=== PATIENT | female | born 1995 | race Caucasian/White ===

== ENCOUNTER 2016-12-02 18:03 | Emergency (ER) | payer MEDICAID ==
[2016-12-02 19:32] LABS: APPEARANCE,URINE CLEAR; BILIRUBIN,URINE NEGATIVE (NEGATIVE); GLUCOSE, URINE NEGATIVE (NEGATIVE); KETONES,URINE NEGATIVE (NEGATIVE); LEUKOCYTE ESTERASE,URINE NEGATIVE (NEGATIVE); NITRITE,URINE NEGATIVE (NEGATIVE); PROTEIN,URINE NEGATIVE (NEGATIVE); URINE SPECIFIC GRAVITY 1.023; UROBILINOGEN,URINE NEGATIVE mg/dL (<2.0)
--- NOTE | 2016-12-02 20:02 | ER Document Report ---
HPI - HPI Patient complains to provider of: urinary frequency, low back pain Onset: Other - months Onset/Duration: Persistent Quality of pain: Achy Pain Level: 3 Context: Patient presents to the emergency department with complaints of bladder pressure urinary frequency and low back pain for months. Patient reports she was treated for UTI 4 months ago. She reports she never really felt better. Last couple weeks she's had some low bladder pressure and low back pain. Denies other symptoms such as fever vomiting diarrhea. Denies vaginal bleeding denies vaginal discharge. Reports uncomfortable feeling with void every now and then. Associated Symptoms: None Exacerbated by: Denies Relieved by: Denies Similar symptoms previously: Yes Recently seen / treated by doctor: No - REPRODUCTIVE Reproductive: DENIES: : - DERM Skin Color: Normal Past Medical History - General Information source: Patient Last Menstrual Period: 11/18/16 - Social History Smoking Status: Never Smoker Chew tobacco use (# tins/day): No Frequency of alcohol use: None Drug Abuse: None Occupation: homemaker Lives with: Family Family History: None Patient has suicidal ideation: No Patient has homicidal ideation: No - Medical History Medical History: Negative - Past Medical History Cardiac Medical History: Denies: Hx Coronary Artery Disease, Hx Heart Attack, Hx Hypertension Pulmonary Medical History: Denies: Hx Asthma, Hx Bronchitis, Hx COPD, Hx Pneumonia Neurological Medical History: Denies: Hx Cerebrovascular Accident, Hx Seizures Renal/ Medical History: Denies: Hx Peritoneal Dialysis Musculoskeltal Medical History: Denies Hx Arthritis Past Surgical History: Reports: Hx Cholecystectomy - Immunizations Immunizations up to date: Yes Hx Diphtheria, Pertussis, Tetanus Vaccination: Yes Vertical Provider Document - CONSTITUTIONAL Agree With Documented VS: Yes Exam Limitations: No Limitations General Appearance: WD/WN, No Apparent Distress - INFECTION CONTROL TRAVEL OUTSIDE OF THE [place] IN LAST 30 DAYS: No - HEENT HEENT: Atraumatic, Normocephalic - NECK Neck: Normal Inspection, Supple. negative: Lymphadenopathy-Left, Lymphadenopathy-Right - RESPIRATORY Respiratory: Breath Sounds Normal, No Respiratory Distress O2 Sat by Pulse Oximetry: 99 - CARDIOVASCULAR Cardiovascular: Regular Rate, Regular Rhythm - GI/ABDOMEN Gastrointestinal: Abdomen Soft, Abdomen Non-Tender - BACK Back: Normal Inspection - no obvious deformity, good distal movement and sensation, no weakness - MUSCULOSKELETAL/EXTREMETIES Musculoskeletal/Extremeties: MAEW, FROM - NEURO Level of Consciousness: Awake, Alert, Appropriate Motor/Sensory: No Motor Deficit - DERM Integumentary: Warm, Dry Adult Front & Back Diagram: 1 - low back achy 2 - bladder pressure Course - Re-evaluation Re-evalutation: 12/02/16 20:08 Patient was instructed on negative UA. Urine culture sent. Patient was also instructed to follow up with her primary care provider for recheck. She verbalized understanding. - Vital Signs Vital signs: Temp Pulse Resp BP Pulse Ox 98.6 F 84 17 147/95 H 99 12/02/16 18:12 12/02/16 18:12 12/02/16 18:12 12/02/16 18:12 12/02/16 18:12 - Laboratory Laboratory results interpreted by me: 12/02/16 18:35 Urine Blood SMALL H Discharge - Discharge Clinical Impression: Urinary frequency, Elevated blood pressure reading Condition: Stable Disposition: HOME, SELF-CARE Additional Instructions: *You have been evaluated for urinary frequency, elevated blood pressure reading *A urine culture is pending, you will contacted should you need antibiotics *Push fluids *Follow up with your primary care provider within one week *Return to ED for worsening condition, changes, needs Monitor your blood pressure. Your blood pressure was elevated today. This may be because you were anxious, in pain or because you need medication. It is important to follow up with your primary care provider for full evaluation. Referrals: MATIAS SOTO MD [Primary Care Provider] - Follow up in 1 week
[2016-12-02 20:59] VITALS: BP 141/92
== END 2016-12-02 20:57 | disposition home or self-care (01) ==
LOC: ER 18:03
DX: R35.0 Frequency of micturition (principal); R03.0 Elevated blood-pressure reading, without diagnosis of hypertension; M54.5 Low back pain
CPT/HCPCS: 81001; 81025; 87086; 99283

== ENCOUNTER 2017-07-29 17:27 | Emergency (ER) | payer MEDICAID ==
--- NOTE | 2017-07-29 17:48 | ER Document Report ---
ED General - General Chief Complaint: Chest Pain Stated Complaint: CHEST PAIN Time Seen by Provider: 07/29/17 17:47 Mode of Arrival: Ambulatory Information source: Patient Notes: 22-year-old female presents with complaints of 5 day duration of intermittent chest pain. Patient notes it is a sharp pressure-like pain on the left chest rating to her neck. Patient denies any rigors or chills admits to intermittent cough which makes her pain worse. She denies any shortness of breath denies any DVT or PE risk factors, patient denies any early family history of cardiac . TRAVEL OUTSIDE OF THE [place] IN LAST 30 DAYS: No - HPI Onset: Last week Onset/Duration: Intermittent Quality of pain: Achy, Sharp Severity: Mild Pain Level: 1 Associated symptoms: Chest pain Exacerbated by: Denies Relieved by: Denies Similar symptoms previously: No Recently seen / treated by doctor: No - Related Data Allergies/Adverse Reactions: amoxicillin [Amoxicillin] Allergy (Mild, Verified 07/29/17 17:30) Hives Penicillins Allergy (Mild, Verified 07/29/17 17:30) Hives Past Medical History - Social History Smoking Status: Never Smoker Cigarette use (# per day): No Chew tobacco use (# tins/day): No Smoking Education Provided: No Family History: None - Past Medical History Cardiac Medical History: Denies: Hx Coronary Artery Disease, Hx Heart Attack, Hx Hypertension Pulmonary Medical History: Denies: Hx Asthma, Hx Bronchitis, Hx COPD, Hx Pneumonia Neurological Medical History: Denies: Hx Cerebrovascular Accident, Hx Seizures Renal/ Medical History: Denies: Hx Peritoneal Dialysis Musculoskeltal Medical History: Denies Hx Arthritis Past Surgical History: Reports: Hx Cholecystectomy - Immunizations Immunizations up to date: Yes Hx Diphtheria, Pertussis, Tetanus Vaccination: Yes Review of Systems - Review of Systems Notes: REVIEW OF SYSTEMS: CONSTITUTIONAL : Denies fever, chills, or sweats. Denies recent illness. EENT: Denies eye, ear, throat, or mouth pain or symptoms. Denies nasal or sinus congestion or discharge. Denies throat, tongue, or mouth swelling or difficulty swallowing. CARDIOVASCULAR: Denies chest pain. Denies palpitations or racing or irregular heart beat. Denies ankle edema. RESPIRATORY: Denies cough, cold, or chest congestion. Denies shortness of breath, difficulty breathing, or wheezing. GASTROINTESTINAL: Denies abdominal pain or distention. Denies nausea, vomiting , or diarrhea. Denies blood in vomitus, stools, or per rectum. Denies black, tarry stools. Denies constipation. GENITOURINARY: Denies difficulty urinating, painful urination, burning, frequency, blood in urine, or discharge. FEMALE GENITOURINARY: Denies vaginal bleeding, heavy or abnormal periods, irregular periods. Denies vaginal discharge or odor. MUSCULOSKELETAL: Denies back or neck pain or stiffness. Denies joint pain or swelling. SKIN: Denies rash, lesions or sores. HEMATOLOGIC : Denies easy bruising or bleeding. LYMPHATIC: Denies swollen, enlarged glands. NEUROLOGICAL: Denies confusion or altered mental status. Denies passing out or loss of consciousness. Denies dizziness or lightheadedness. Denies headache. Denies weakness or paralysis or loss of use of either side. Denies problems with gait or speech. Denies sensory loss, numbness, or tingling. Denies seizures. PSYCHIATRIC: Denies anxiety or stress. Denies depression, suicidal ideation, or homicidal ideation. ALL OTHER SYSTEMS REVIEWED AND NEGATIVE. PHYSICAL EXAMINATION: GENERAL: Well-appearing, well-nourished and in no acute distress. HEAD: Atraumatic, normocephalic. EYES: Pupils equal round and reactive to light, extraocular movements intact, conjunctiva are normal. ENT: Nares patent, oropharynx clear without exudates. Moist mucous membranes. NECK: Normal range of motion, supple without lymphadenopathy LUNGS: Breath sounds clear to auscultation bilaterally and equal. No wheezes rales or rhonchi. HEART: Regular rate and rhythm without murmurs chest wall pain reproducible on palpation ABDOMEN: Soft, nontender, nondistended abdomen. No guarding, no rebound. No masses appreciated. Female : deferred Musculoskeletal: Normal range of motion, no pitting or edema. No cyanosis. NEUROLOGICAL: Cranial nerves grossly intact. Normal speech, normal gait. Normal sensory, motor exams PSYCH: Normal mood, normal affect. SKIN: Warm, Dry, normal turgor, no rashes or lesions noted. Dictation was performed using [employer] voice recognition software Physical Exam - Vital signs Vitals: Temp Pulse Resp BP Pulse Ox 97.8 F 88 14 140/81 H 99 07/29/17 17:31 07/29/17 17:31 07/29/17 17:31 07/29/17 17:31 07/29/17 17:31 Course - Re-evaluation Re-evalutation: 07/29/17 17:53 X-ray cardiac workup pending but have extremely low suspicion for any cardiac event 07/29/17 19:00 Patient's lab work cardiac enzymes are negative have even less suspicion of any cardiac event, I will have her follow-up with her primary care physician that she is otherwise stable for discharge After performing a Medical Screening Examination, I estimate there is LOW risk for RUPTURED ESOPHAGUS, PNEUMOTHORAX, PULMONARY EMBOLISM, ACUTE CORONARY SYNDROME, OR THORACIC AORTIC DISSECTION, thus I consider the discharge disposition reasonable. I have reevaluated this patient multiple times and no significant life threatening changes are noted. The patient and I have discussed the diagnosis and risks, and we agree with discharging home with close follow-up. We also discussed returning to the Emergency Department immediately if new or worsening symptoms occur. We have discussed the symptoms which are most concerning (e.g., bloody sputum, worsening pain or shortness of breath) that necessitate immediate return. - Vital Signs Vital signs: Temp Pulse Resp BP Pulse Ox 97.8 F 88 14 140/81 H 99 07/29/17 17:31 07/29/17 17:31 07/29/17 17:31 07/29/17 17:31 07/29/17 17:31 - Laboratory Result Diagrams: 07/29/17 18:00 07/29/17 18:00 - Diagnostic Test Radiology reviewed: Image reviewed, Reports reviewed - EKG Interpretation by Me EKG shows normal: Sinus rhythm, Intervals, QRS Complexes Discharge - Discharge Clinical Impression: Chest pain of unknown etiology Condition: Stable Disposition: HOME, SELF-CARE Instructions: Chest Pain of Unclear Cause ([facility]) Additional Instructions: Follow up with your physician tomorrow for further care or return to the ED IMMEDIATELY if symptoms worsen or new concerns occur. If you cannot afford to follow up with your primary care physician a list of low cost clinics have been provided at the end of your discharge papers as well.
[2017-07-29 18:16] LABS: ABSOLUTE BASOPHILS # (AUTO) 0.1 10^3/uL (0.0-0.2); ABSOLUTE LYMPHOCYTES (AUTO) 2.1 10^3/uL (0.5-4.7); ABSOLUTE MONOCYTES (AUTO) 0.4 10^3/uL (0.1-1.4); ABSOLUTE NEUT (AUTO) 3.1 10^3/uL (1.7-8.2); EOSINOPHILS % (AUTO) 0.5 % (0-6); HEMATOCRIT 39.1 % (36.0-47.0); HGB HCT DIFFERENCE -0.1; LYMPHOCYTES % (AUTO) 37.4 % (13-45); MEAN CORPUSCULAR HEMOGLOBIN 27.9 pg (27.0-33.4); MEAN CORPUSCULAR HGB CONC 33.3 g/dL (32.0-36.0); MEAN CORPUSCULAR VOLUME 84 fl (80-97); MONOCYTES % (AUTO) 6.6 % (3-13); RED BLOOD COUNT 4.66 10^6/uL (3.72-5.28); RED CELL DISTRIBUTION WIDTH 13.1 % (11.5-14.0); SEGMENTED NEUTROPHILS % (AUTO) 54.5 % (42-78); WHITE BLOOD COUNT 5.7 10^3/uL (4.0-10.5)
--- NOTE | 2017-07-29 18:42 | RADIOLOGY REPORT (SQ) ---
EXAM DESCRIPTION: CHEST PA/LAT COMPLETED DATE/TIME: 07/29/2017 6:18 pm REASON FOR STUDY: chest pain COMPARISON: None. EXAM PARAMETERS: NUMBER OF VIEWS: two views TECHNIQUE: Digital Frontal and Lateral radiographic views of the chest acquired. RADIATION DOSE: NA LIMITATIONS: none FINDINGS: LUNGS AND PLEURA: No opacities, masses or pneumothorax. No pleural effusion. MEDIASTINUM AND HILAR STRUCTURES: No masses or contour abnormalities. HEART AND VASCULAR STRUCTURES: Heart normal size. No evidence for failure. BONES: No acute findings. HARDWARE: None in the chest. OTHER: No other significant finding. IMPRESSION: NO SIGNIFICANT RADIOGRAPHIC FINDING IN THE CHEST. TECHNICAL DOCUMENTATION: JOB ID: [id number] [employer]- All Rights Reserved
[2017-07-29 18:46] LABS: ALANINE AMINOTRANSFERASE 27 U/L (9-52); ALBUMIN 4.5 g/dL (3.5-5.0); ALKALINE PHOSPHATASE 67 U/L (38-126); ANION GAP 13 (5-19); ASPARTATE AMINO TRANSFERASE 16 U/L (14-36); BILIRUBIN,DIRECT 0.2 mg/dL (0.0-0.4); BILIRUBIN,TOTAL 0.5 mg/dL (0.2-1.3); BLOOD UREA NITROGEN 9 mg/dL (7-20); CALCIUM 9.9 mg/dL (8.4-10.2); CARBON DIOXIDE 24 mmol/L (22-30); CHLORIDE 105 mmol/L (98-107); CREATINE KINASE 40 U/L (30-135); CREATININE RESULT 0.61 mg/dL (0.52-1.25); GLUCOSE 90 mg/dL (75-110); POTASSIUM 4.2 mmol/L (3.6-5.0); SODIUM 141.8 mmol/L (137-145); TOTAL PROTEIN 7.5 g/dL (6.3-8.2)
[2017-07-29 18:58] LABS: CREATINE KINASE MB < 0.22 ng/mL (<4.55); TROPONIN I < 0.012 ng/mL
[2017-07-29 19:04] VITALS: BP 136/86
--- NOTE | 2017-07-29 20:49 | EKG REPORT ---
SEVERITY:- BORDERLINE ECG - SINUS RHYTHM NONSPECIFIC INFERIOR ST-T CHANGES : Confirmed by: Chucky Adams MD 29-Jul-2017 20:48:41
== END 2017-07-29 19:04 | disposition home or self-care (01) ==
LOC: ER 17:27
DX: R07.9 Chest pain, unspecified (principal)
CPT/HCPCS: 36415; 71020; 80053; 82550; 82553; 84484; 85025; 93005; 93010; 99285

== ENCOUNTER 2017-08-11 01:56 | Emergency (ER) | payer MEDICAID ==
[2017-08-11] MEDS ORDERED: SUCRALFATE 1 GM TABLET PO ONE (03:01)
[2017-08-11] MEDS ORDERED: ONDANSETRON 4 MG TAB.RAPDIS PO ONE (03:01)
[2017-08-11] MEDS ORDERED: FAMOTIDINE 20 MG TABLET PO ONE (03:01)
--- NOTE | 2017-08-11 03:03 | ER Document Report ---
ED GI/ - General Chief Complaint: Abdominal Pain Stated Complaint: STOMACH PAINS Time Seen by Provider: 08/11/17 02:52 Notes: Patient is a 22-year-old female that comes emergency department for chief complaint of left upper quadrant pain. She states she has had this intermittently for a while but tonight it was particularly uncomfortable, she tried eating and felt worse, she felt nauseated. She denies fever chills, vomiting, she had a bowel movement earlier which was unremarkable. She states she has been taking a lot of ibuprofen because she was seen here and diagnosed with chest wall pain. She states her chest feels fine now but now her left upper abdomen is hurting. Past medical history of anxiety, cholecystectomy. LMP in June, states she normally has irregular cycles. TRAVEL OUTSIDE OF THE [place] IN LAST 30 DAYS: No - Related Data Allergies/Adverse Reactions: amoxicillin [Amoxicillin] Allergy (Mild, Verified 07/29/17 17:30) Hives Penicillins Allergy (Mild, Verified 07/29/17 17:30) Hives Past Medical History - General Information source: Patient - Social History Smoking Status: Never Smoker Frequency of alcohol use: None Drug Abuse: None Lives with: Family Family History: None - Past Medical History Cardiac Medical History: Denies: Hx Coronary Artery Disease, Hx Heart Attack, Hx Hypertension Pulmonary Medical History: Denies: Hx Asthma, Hx Bronchitis, Hx COPD, Hx Pneumonia Neurological Medical History: Denies: Hx Cerebrovascular Accident, Hx Seizures Renal/ Medical History: Denies: Hx Peritoneal Dialysis Musculoskeltal Medical History: Denies Hx Arthritis Psychiatric Medical History: Reports: Hx Attention Deficit Hyperactivity Disorder Past Surgical History: Reports: Hx Cholecystectomy - Immunizations Immunizations up to date: Yes Hx Diphtheria, Pertussis, Tetanus Vaccination: Yes Review of Systems - Review of Systems Constitutional: No symptoms reported EENT: No symptoms reported Cardiovascular: No symptoms reported Respiratory: No symptoms reported Gastrointestinal: See HPI Genitourinary: No symptoms reported Female Genitourinary: No symptoms reported Musculoskeletal: No symptoms reported Skin: No symptoms reported Hematologic/Lymphatic: No symptoms reported Neurological/Psychological: No symptoms reported Physical Exam - Vital signs Vitals: Temp Pulse Resp BP Pulse Ox 98.0 F 83 22 H 140/83 H 99 08/11/17 02:01 08/11/17 02:01 08/11/17 02:08/11/17 02:01 08/11/17 02:01 Interpretation: Normal - General General appearance: Appears well, Alert - HEENT Head: Normocephalic, Atraumatic Eyes: Normal Pupils: PERRL - Respiratory Respiratory status: No respiratory distress Chest status: Nontender Breath sounds: Normal Chest palpation: Normal - Cardiovascular Rhythm: Regular Heart sounds: Normal auscultation Murmur: No - Abdominal Inspection: Normal Distension: No distension Bowel sounds: Normal Tenderness: Tender - There is some tenderness in the left upper quadrant on exam , no guarding, otherwise unremarkable abdominal exam Organomegaly: No organomegaly - Back Back: Normal, Nontender - Extremities General upper extremity: Normal inspection, Nontender, Normal color, Normal ROM , Normal temperature General lower extremity: Normal inspection, Nontender, Normal color, Normal ROM , Normal temperature, Normal weight bearing. No: Brayan's sign - Neurological Neuro grossly intact: Yes Cognition: Normal Orientation: AAOx4 [place] Coma Scale Eye Opening: Spontaneous [place] Coma Scale Verbal: Oriented [place] Coma Scale Motor: Obeys Commands [place] Coma Scale Total: 15 Speech: Normal Motor strength normal: LUE, RUE, LLE, RLE Sensory: Normal - Psychological Associated symptoms: Normal affect, Normal mood - Skin Skin Temperature: Warm Skin Moisture: Dry Skin Color: Normal Course - Re-evaluation Re-evalutation: There is some left upper quadrant tenderness on exam. No guarding, no evidence of acute abdomen. Vital signs unremarkable. Chemistry and lipase unremarkable , hCG is negative. Based on patient taking a lot of ibuprofen recently along with location and nature of her symptoms I suspect this is upper gastrointestinal tract. Patient improved after medications. Will treat at home. Discussed follow-up details, discussed return precautions. Patient states satisfaction and agreement. - Vital Signs Vital signs: Temp Pulse Resp BP Pulse Ox 98.4 F 73 16 117/75 99 08/11/17 05:29 08/11/17 05:29 08/11/17 05:29 08/11/17 05:29 08/11/17 05:29 - Laboratory Result Diagrams: 08/11/17 03:23 Laboratory results interpreted by me: 08/11/17 03:23 Creatinine 0.49 L Discharge - Discharge Clinical Impression: Left upper quadrant pain Condition: Stable Disposition: HOME, SELF-CARE Additional Instructions: Based on your location of pain and laboratory workup I do suspect that you have gastritis. Take Carafate and Pepcid as prescribed, avoid spicy foods, caffeine , NSAIDs such as ibuprofen/Motrin, aspirin, naproxen. Avoid alcohol or smoking. Start with bland food and slowly progress. Follow-up with primary care. You may need testing for H. pylori or even endoscopy. Return if you worsen including vomiting, black stools, severe pain, fever, etc. Prescriptions: Famotidine [Pepcid 20 mg Tablet] 20 mg PO DAILY #20 tablet Ondansetron [Zofran Odt 4 mg Tablet] 1 - 2 tab PO Q4H PRN #15 tab.rapdis PRN Reason: For Nausea/Vomiting Sucralfate [Carafate 1 gm Tablet] 1 gm PO QID #20 tablet Referrals: RAMIREZ FISCHER MD [Primary Care Provider] - Follow up in 1 week
[2017-08-11 03:53] LABS: ALANINE AMINOTRANSFERASE 27 U/L (9-52); ALBUMIN 4.3 g/dL (3.5-5.0); ALKALINE PHOSPHATASE 64 U/L (38-126); ANION GAP 14 (5-19); ASPARTATE AMINO TRANSFERASE 15 U/L (14-36); BILIRUBIN,DIRECT 0.2 mg/dL (0.0-0.4); BILIRUBIN,TOTAL 0.3 mg/dL (0.2-1.3); BLOOD UREA NITROGEN 9 mg/dL (7-20); CALCIUM 9.9 mg/dL (8.4-10.2); CARBON DIOXIDE 22 mmol/L (22-30); CHLORIDE 107 mmol/L (98-107); GLUCOSE 88 mg/dL (75-110); LIPASE 76.5 U/L (23-300); SODIUM 142.5 mmol/L (137-145); TOTAL PROTEIN 7.2 g/dL (6.3-8.2)
[2017-08-11 05:35] VITALS: BP 117/75
== END 2017-08-11 05:33 | disposition home or self-care (01) ==
LOC: ER 01:56
DX: R10.12 Left upper quadrant pain (principal); R11.0 Nausea; Z90.49 Acquired absence of other specified parts of digestive tract; Z88.0 Allergy status to penicillin
CPT/HCPCS: 99284; 36415; 83690; 84703; 80053; J3490 ×2; S0119

== ENCOUNTER → 2017-08-22 | Outpatient (CLI) | payer MEDICAID | LOC: LAB 15:14 | PROVIDERS: ATTEND Physician Assistant Surgical | DX: R10.819 Abdominal tenderness, unspecified site (principal) | CPT/HCPCS: 36415; 84703 ==

== ENCOUNTER 2017-11-25 12:39 | Emergency (ER) | payer MEDICAID ==
[2017-11-25] MEDS ORDERED: ONDANSETRON HCL INJ/PF 4 MG/2 ML SDV IV ONE (13:42)
[2017-11-25] MEDS ORDERED: RINGERS SOLUTION,LACTATED 1,000 ML IV ONE (13:43)
[2017-11-25] MEDS ORDERED: ACETAMINOPHEN 325 MG TABLET PO ONE (13:45)
--- NOTE | 2017-11-25 13:45 | ER Document Report ---
ED Medical Screen (RME) - General Chief Complaint: Abdominal Cramping Stated Complaint: STOMACH PAIN, VOMITING Time Seen by Provider: 11/25/17 13:31 Notes: RME DISCLOSURE I have seen this patient as part of a Rapid Medical Evaluation and, if applicable, placed any initially appropriate orders. The patient will be seen and fully evaluated, including a full history and physical exam, by a provider ( in Main ED or Fast Track) when a room becomes available. 22-year-old female approximately 18 weeks by ultrasound (per her report) here with complaints of continued and progressively worsening abdominal cramping nausea vomiting that she has had all throughout the . She states that over the past few days she has been unable to keep anything down. She also states that when she went to her health department appointment several days ago, they could not find any heart tones. TRAVEL OUTSIDE OF THE [place] IN LAST 30 DAYS: No - Related Data Allergies/Adverse Reactions: amoxicillin [Amoxicillin] Allergy (Mild, Verified 11/25/17 13:31) Hives Penicillins Allergy (Mild, Verified 11/25/17 13:31) Hives Past Medical History - Social History Chew tobacco use (# tins/day): No Frequency of alcohol use: None Drug Abuse: None - Past Medical History Cardiac Medical History: Denies: Hx Coronary Artery Disease, Hx Heart Attack, Hx Hypertension Pulmonary Medical History: Denies: Hx Asthma, Hx Bronchitis, Hx COPD, Hx Pneumonia Neurological Medical History: Denies: Hx Cerebrovascular Accident, Hx Seizures Renal/ Medical History: Denies: Hx Peritoneal Dialysis Musculoskeltal Medical History: Denies Hx Arthritis Psychiatric Medical History: Reports: Hx Attention Deficit Hyperactivity Disorder Past Surgical History: Reports: Hx Cholecystectomy - Immunizations Immunizations up to date: Yes Hx Diphtheria, Pertussis, Tetanus Vaccination: Yes Physical Exam - Vital signs Vitals: Temp Pulse Resp BP Pulse Ox 97.5 F 89 20 126/66 H 99 11/25/17 12:51 11/25/17 12:51 11/25/17 12:51 11/25/17 12:51 11/25/17 12:51 Course - Vital Signs Vital signs: Temp Pulse Resp BP Pulse Ox 97.5 F 89 20 126/66 H 99 11/25/17 12:51 11/25/17 12:51 11/25/17 12:51 11/25/17 12:51 11/25/17 12:51
[2017-11-25 14:22] LABS: ABSOLUTE LYMPHOCYTES (AUTO) 0.7 10^3/uL (0.5-4.7); ABSOLUTE MONOCYTES (AUTO) 0.1 10^3/uL (0.1-1.4); ABSOLUTE NEUT (AUTO) 9.8 10^3/uL (1.7-8.2); BASOPHILS % (AUTO) 0.1 % (0-2); HEMOGLOBIN 12.6 g/dL (12.0-15.5); LYMPHOCYTES % (AUTO) 6.4 % (13-45); MEAN CORPUSCULAR HEMOGLOBIN 29.2 pg (27.0-33.4); MEAN CORPUSCULAR HGB CONC 34.1 g/dL (32.0-36.0); MEAN CORPUSCULAR VOLUME 85 fl (80-97); MONOCYTES % (AUTO) 1.3 % (3-13); PLATELET COUNT 257 10^3/uL (150-450); RED BLOOD COUNT 4.33 10^6/uL (3.72-5.28); RED CELL DISTRIBUTION WIDTH 13.6 % (11.5-14.0); SEGMENTED NEUTROPHILS % (AUTO) 92.2 % (42-78); TOTAL CELLS COUNTED % (AUTO) 100 %; WHITE BLOOD COUNT 10.6 10^3/uL (4.0-10.5)
[2017-11-25 14:29] LABS: AMORPHOUS SEDIMENT,URINE 1+ /HPF; APPEARANCE,URINE TURBID; BILIRUBIN,URINE NEGATIVE (NEGATIVE); COLOR,URINE YELLOW; GLUCOSE, URINE 50 mg/dL (NEGATIVE); KETONES,URINE 80 mg/dL (NEGATIVE); LEUKOCYTE ESTERASE,URINE TRACE (NEGATIVE); NITRITE,URINE NEGATIVE (NEGATIVE); PROTEIN,URINE 100 mg/dL (NEGATIVE); URINE SPECIFIC GRAVITY 1.026; UROBILINOGEN,URINE NEGATIVE mg/dL (<2.0)
[2017-11-25 14:40] LABS: ALANINE AMINOTRANSFERASE 25 U/L (9-52); ALBUMIN 4.4 g/dL (3.5-5.0); ALKALINE PHOSPHATASE 66 U/L (38-126); ANION GAP 15 (5-19); ASPARTATE AMINO TRANSFERASE 12 U/L (14-36); BILIRUBIN,DIRECT 0.2 mg/dL (0.0-0.4); BILIRUBIN,TOTAL 0.2 mg/dL (0.2-1.3); BLOOD UREA NITROGEN 4 mg/dL (7-20); CALCIUM 9.7 mg/dL (8.4-10.2); CARBON DIOXIDE 22 mmol/L (22-30); CHLORIDE 103 mmol/L (98-107); GLUCOSE 144 mg/dL (75-110); LIPASE 52.2 U/L (23-300); POTASSIUM 3.4 mmol/L (3.6-5.0); SODIUM 139.9 mmol/L (137-145); TOTAL PROTEIN 7.7 g/dL (6.3-8.2)
--- NOTE | 2017-11-25 14:53 | RADIOLOGY REPORT (SQ) ---
EXAM DESCRIPTION: U/S OB LIMITED COMPLETED DATE/TIME: 11/25/2017 2:44 pm REASON FOR STUDY: unobtainable FHT; eval demise COMPARISON: None. TECHNIQUE: Limited transabdominal grayscale ultrasound for evaluation of specific requested obstetri allen parameters. LIMITATIONS: None. FINDINGS: CERVICAL LENGTH: 3.9 cm Closed. MITZI: 11.6 cm. FHR: 141 beats per minute. PRESENTATION: Cephalic. OTHER: Estimated gestational age 18 weeks 4 days which is consistent with dates. Posterior placenta without previa. IMPRESSION: LIMITED OBSTETRICAL ULTRASOUND WITH MEASURED PARAMETERS DELINEATED ABOVE. Trimester of : Second trimester - 13 weeks 1 day to 27 weeks 6 days. TECHNICAL DOCUMENTATION: JOB ID: [id number] [employer]- All Rights Reserved Reading location - IP/workstation name: [email or web address]
[2017-11-25] MEDS ORDERED: METOCLOPRAMIDE HCL INJ/PF 10 MG/2 ML SDV IV ONE (15:07)
[2017-11-25] MEDS ORDERED: DEXTROSE 5%-1/2 NORMAL SALINE 1,000 ML IV ONE (15:07)
--- NOTE | 2017-11-25 15:13 | ER Document Report ---
ED GI/ - General Chief Complaint: Abdominal Cramping Stated Complaint: STOMACH PAIN, VOMITING Time Seen by Provider: 11/25/17 13:31 Notes: The patient is a 22-year-old female, 18 weeks , presents with several weeks of nausea, vomiting and epigastric pain. The health department has provided her with Diclegis, Zofran and Phenergan without much relief of her nausea or vomiting. She mentioned that they had difficulty finding heart tones during her last OB visit. She denies vaginal bleeding, lower abdominal pain, fevers, hematemesis, diarrhea, constipation, recent travel, headache, blurry vision, chest pain or shortness of breath. TRAVEL OUTSIDE OF THE [place] IN LAST 30 DAYS: No - Related Data Allergies/Adverse Reactions: amoxicillin [Amoxicillin] Allergy (Mild, Verified 11/25/17 13:31) Hives Penicillins Allergy (Mild, Verified 11/25/17 13:31) Hives Past Medical History - General Information source: Patient - Social History Smoking Status: Never Smoker Chew tobacco use (# tins/day): No Frequency of alcohol use: None Drug Abuse: None Family History: None Patient has suicidal ideation: No Patient has homicidal ideation: No - Past Medical History Cardiac Medical History: Denies: Hx Coronary Artery Disease, Hx Heart Attack, Hx Hypertension Pulmonary Medical History: Denies: Hx Asthma, Hx Bronchitis, Hx COPD, Hx Pneumonia Neurological Medical History: Denies: Hx Cerebrovascular Accident, Hx Seizures Renal/ Medical History: Denies: Hx Peritoneal Dialysis Musculoskeltal Medical History: Denies Hx Arthritis Psychiatric Medical History: Reports: Hx Attention Deficit Hyperactivity Disorder Past Surgical History: Reports: Hx Cholecystectomy - Immunizations Immunizations up to date: Yes Hx Diphtheria, Pertussis, Tetanus Vaccination: Yes Review of Systems - Review of Systems Notes: REVIEW OF SYSTEMS: CONSTITUTIONAL: -fevers, -chills EENT: -eye pain, -difficulty swallowing, -nasal congestion CARDIOVASCULAR: -chest pain, -syncope. RESPIRATORY: -cough, -SOB GASTROINTESTINAL: +epigastric abdominal pain, +nausea, +vomiting, -diarrhea GENITOURINARY: -dysuria, -hematuria MUSCULOSKELETAL: -back pain, -neck pain SKIN: -rash or skin lesions. HEMATOLOGIC: -easy bruising or bleeding. LYMPHATIC: -swollen, enlarged glands. NEUROLOGICAL: -altered mental status or loss of consciousness, -headache, - neurologic symptoms PSYCHIATRIC: -anxiety, -depression. ALL OTHER SYSTEMS REVIEWED AND NEGATIVE. Physical Exam - Vital signs Vitals: Temp Pulse Resp BP Pulse Ox 97.5 F 89 20 126/66 H 99 11/25/17 12:51 11/25/17 12:51 11/25/17 12:51 11/25/17 12:51 11/25/17 12:51 - Notes Notes: PHYSICAL EXAMINATION: GENERAL: Well-appearing, well-nourished and in no acute distress. HEAD: Atraumatic, normocephalic. EYES: Pupils equal round and reactive to light, extraocular movements intact, sclera anicteric, conjunctiva are normal. ENT: nares patent, oropharynx clear without exudates. Moist mucous membranes. NECK: Normal range of motion, supple without lymphadenopathy LUNGS: Breath sounds clear to auscultation bilaterally and equal. No wheezes rales or rhonchi. HEART: Regular rate and rhythm without murmurs ABDOMEN: Soft, mild epigastric tender, normoactive bowel sounds. No guarding, no rebound. No masses appreciated. EXTREMITIES: Normal range of motion, no pitting or edema. No cyanosis. NEUROLOGICAL: Cranial nerves grossly intact. Normal speech, normal gait. Normal sensory and motor exams. PSYCH: Normal mood, normal affect. SKIN: Warm, Dry, normal turgor, no rashes or lesions noted. Course - Re-evaluation Re-evalutation: Patient appears well. Ultrasound shows a single intrauterine fetus consistent with dates. After Reglan and IV fluids, she is no longer feeling nauseous and is tolerating fluids by mouth. Blood work is unremarkable, other than a slight hypokalemia. Patient will eat a banana when she returns home. Will send her home with Reglan and instructions to follow-up with her OB. - Vital Signs Vital signs: Temp Pulse Resp BP Pulse Ox 98.9 F 83 18 126/73 H 100 11/25/17 16:28 11/25/17 16:28 11/25/17 16:28 11/25/17 16:28 11/25/17 16:28 - Laboratory Result Diagrams: 11/25/17 14:01 11/25/17 14:01 Laboratory results interpreted by me: 11/25/17 11/25/17 11/25/17 14:01 14:01 14:01 WBC 10.6 H Seg Neutrophils % 92.2 H Lymphocytes % 6.4 L Monocytes % 1.3 L Absolute Neutrophils 9.8 H Potassium 3.4 L BUN 4 L Creatinine 0.40 L Glucose 144 H AST 12 L Urine Protein 100 H Urine Glucose (UA) 50 H Urine Ketones 80 H Ur Leukocyte Esterase TRACE H Discharge - Discharge Clinical Impression: Nausea and vomiting during prior to 22 weeks gestation Condition: Stable Disposition: HOME, SELF-CARE Additional Instructions: VOMITING: Vomiting (or nausea without vomiting) can be caused by many other different problems. It can mean that something's wrong with the stomach, such as ulcers or inflammation or the intestinal tract, such as appendicitis. But it can also be a symptom of a problem that has nothing to do with the stomach or intestines. Vomiting is common with severe headaches, earaches, tonsillitis, and kidney infections, etc. We see it with pneumonia or heart attacks. Drugs can cause nausea and vomiting. Many abdominal problems cause vomiting; for example, gallstones, kidney stones, pancreatitis, and intestinal obstruction ( blocked bowels). In most cases, curing the vomiting depends on fixing the problem that caused it. For temporary relief, we may use an anti-nausea medicine. For home use, we can prescribe suppositories, chewable pills, pills that dissolve in the mouth, or liquid anti-nausea drugs. If the vomiting seems to be caused by a problem in the stomach, acid-suppressing drugs may be prescribed as well. It's important to avoid dehydration. Sip small amounts of clear liquids ( soft drinks, tea, broth, etc) . Try to take fluids frequently even if you are vomiting to prevent dehydration. Take increasing amounts of fluid and when liquids are being consumed successfully, advance to small amounts of bland food (toast, soups, mashed potatoes, etc.) until you are able to resume a regular diet. Avoid aspirin, tobacco, and alcohol. If the vomiting worsens, if the problem that's making you vomit worsens, or if there's evidence of bleeding in the stomach (such as black, tarry stool, or bloody or black vomit), you should return immediately. Also, return if abdominal pain worsens or becomes localized to one area or you develop high fever. Call your doctor if you aren't improved in 24 hours. INTRAVENOUS (I V) FLUIDS: As part of your care today, you received intravenous (IV) fluids. IV fluids are administered to patients who are dehydrated or to those who have certain chemical (electrolyte) abnormalities that need correcting. ANTINAUSEA MEDICATION: You have been given a medication to suppress nausea and vomiting. This type of medication can be given as a shot, pill, or suppository. It will usually last for many hours. Pills and shots usually last six to eight hours. For the typical illness, only one or two doses of the medication may be necessary. Mild lightheadedness may occur. This type of medicine can cause drowsiness. Do not drive or operate dangerous machinery while under its influence. Do not mix with alcohol. See your doctor at once if you have muscle spasms or tightness, or uncontrollable motions (particularly of the neck, mouth, or jaw). Persistent vomiting or severe lightheadedness should also be evaluated by the physician. REGLAN (METOCLOPRAMIDE): Reglan has been prescribed. This medicine affects the stomach and intestines. It can be used to treat nausea and vomiting, to prevent reflux of stomach acid up into the esophagus, or to increase the contractions of the stomach and intestines. It is often prescribed for esophagitis, and for paralysis of the stomach in diabetics. Reglan can cause either mild restlessness or drowsiness. You should contact the doctor at once if you become extremely restless, anxious, or cannot sleep, or if you develop uncontrollable motions of the lips, tongue, or jaw. Do not take alcohol with this medicine. Do not drive or operate machinery until you have been taking this medicine long enough to know how it affects you. Call the doctor if you develop abdominal pains, lightheadedness, black stool, or blood in the stool or vomitus. FOLLOW-UP CARE: If you have been referred to a physician for follow-up care, call the physician s office for an appointment as you were instructed or within the next two days. If you experience worsening or a significant change in your symptoms, notify the physician immediately or return to the Emergency Department at any time for re-evaluation. Prescriptions: Metoclopramide HCl [Reglan 10 mg Tablet] 1 - 2 tab PO ASDIR PRN #25 tablet PRN Reason: Forms: Elevated Blood Pressure Referrals: RAMIREZ FISCHER MD [Primary Care Provider] - Follow up as needed
[2017-11-25] MEDS ORDERED: FAMOTIDINE INJ/PF 20 MG/2 ML SDV IV ONE (15:24)
[2017-11-25 16:36] VITALS: BP 126/73
== END 2017-11-25 16:32 | disposition home or self-care (01) ==
LOC: ER 12:39
DX: O21.9 Vomiting of pregnancy, unspecified (principal); O26.892 Other specified pregnancy related conditions, second trimester; R10.13 Epigastric pain; O99.282 Endocrine, nutritional and metabolic diseases complicating pregnancy, second trimester; E87.6 Hypokalemia; Z3A.18 18 weeks gestation of pregnancy; Z88.0 Allergy status to penicillin
CPT/HCPCS: 99284; 96361; 96374; 96375; 36415; 83690; 83735; 84100; 85025; 80076; 80048; 81001; 76815; J3490; J2765; J2405; J7120; S0028

== ENCOUNTER 2018-01-09 20:50 | Outpatient (CLI) | payer MEDICAID ==
[2018-01-09] MEDS ORDERED: RINGERS SOLUTION,LACTATED 1,000 ML IV PRN (21:15)
[2018-01-09] MEDS ORDERED: ONDANSETRON HCL INJ/PF 4 MG/2 ML SDV ONE (21:39)
[2018-01-09 21:44] LABS: APPEARANCE,URINE SLIGHTLY-CLOUDY; BILIRUBIN,URINE NEGATIVE (NEGATIVE); COLOR,URINE AMBER; GLUCOSE, URINE 50 mg/dL (NEGATIVE); KETONES,URINE 80 mg/dL (NEGATIVE); LEUKOCYTE ESTERASE,URINE TRACE (NEGATIVE); NITRITE,URINE NEGATIVE (NEGATIVE); PROTEIN,URINE 30 mg/dL (NEGATIVE); URINE SPECIFIC GRAVITY 1.027
[2018-01-09] MEDS ORDERED: ONDANSETRON HCL INJ/PF 4 MG/2 ML SDV IV ONE (21:52)
[2018-01-09 21:59] LABS: URINE AMPHETAMINES SCREEN NEGATIVE; URINE BARBITURATES SCREEN NEGATIVE; URINE BENZODIAZEPINES SCREEN NEGATIVE; URINE COCAINE SCREEN NEGATIVE; URINE METHADONE SCREEN NEGATIVE; URINE PHENCYCLIDINE SCREEN NEGATIVE
[2018-01-09 22:01] LABS: URINE MARIJUANA (THC) SCREEN UNCONFIRMED POSITIVE
[2018-01-09] MEDS ORDERED: PROMETHAZINE HCL INJ 25 MG/1 ML VIAL IV ONE (22:19)
[2018-01-09] MEDS ORDERED: PROMETHAZINE HCL INJ 25 MG/1 ML VIAL ONE (22:22)
== END 2018-01-10 00:15 | disposition home or self-care (01) ==
LOC: EDSTATUS 20:58 → LC 21:00
PROVIDERS: ATTEND Obstetrics & Gynecology
PROC: 4A1HXCZ Monitoring of Products of Conception, Cardiac Rate, External Approach (ICD-10-PCS; principal; 2018-01-09)
DX: O99.282 Endocrine, nutritional and metabolic diseases complicating pregnancy, second trimester (principal); E86.0 Dehydration; O21.2 Late vomiting of pregnancy; Z3A.25 25 weeks gestation of pregnancy
CPT/HCPCS: 59899; 81001; 80307; G0480 ×2; J2550; J2405

== ENCOUNTER 2018-01-14 07:33 | Emergency (ER) | payer MEDICAID ==
[2018-01-14 08:17] LABS: ABSOLUTE LYMPHOCYTES (AUTO) 1.4 10^3/uL (0.5-4.7); ABSOLUTE MONOCYTES (AUTO) 0.4 10^3/uL (0.1-1.4); ABSOLUTE NEUT (AUTO) 8.4 10^3/uL (1.7-8.2); BASOPHILS % (AUTO) 0.2 % (0-2); EOSINOPHILS % (AUTO) 0.1 % (0-6); HEMATOCRIT 36.5 % (36.0-47.0); HEMOGLOBIN 12.6 g/dL (12.0-15.5); LYMPHOCYTES % (AUTO) 13.4 % (13-45); MEAN CORPUSCULAR HEMOGLOBIN 29.6 pg (27.0-33.4); MEAN CORPUSCULAR HGB CONC 34.4 g/dL (32.0-36.0); MEAN CORPUSCULAR VOLUME 86 fl (80-97); MONOCYTES % (AUTO) 3.8 % (3-13); PLATELET COUNT 249 10^3/uL (150-450); RED BLOOD COUNT 4.24 10^6/uL (3.72-5.28); RED CELL DISTRIBUTION WIDTH 13.1 % (11.5-14.0); SEGMENTED NEUTROPHILS % (AUTO) 82.5 % (42-78); TOTAL CELLS COUNTED % (AUTO) 100 %; WHITE BLOOD COUNT 10.1 10^3/uL (4.0-10.5)
[2018-01-14] MEDS ORDERED: NORMAL SALINE 1000 ML 1,000 ML IV ONE (08:21)
[2018-01-14] MEDS ORDERED: METOCLOPRAMIDE HCL INJ/PF 10 MG/2 ML SDV IV ONE ×2 (08:22→12:55)
--- NOTE | 2018-01-14 08:24 | ER Document Report ---
ED General - General Mode of Arrival: Ambulatory Information source: Patient TRAVEL OUTSIDE OF THE [place] IN LAST 30 DAYS: No <ANTHONY PENN - Last Filed: 01/14/18 13:38> <SANDRO PEÑALOZA - Last Filed: 01/14/18 14:26> - General Chief Complaint: Vomiting Stated Complaint: VOMITING Time Seen by Provider: 01/14/18 08:15 Notes: Patient is a 22 year old female, currently 25 weeks , presents to the emergency department complaining of nausea and vomiting onset this morning around 0200. Patient states she has been prescribed Zofran for her nausea but states it only intermittently relieves her nausea. Patient states she has some abdominal cramps while vomiting. Patient denies any vaginal bleeding. Patient is . (ANTHONY PENN) - Related Data Allergies/Adverse Reactions: amoxicillin [Amoxicillin] Allergy (Mild, Verified 01/14/18 07:34) Hives Penicillins Allergy (Mild, Verified 01/14/18 07:34) Hives Past Medical History - General Information source: Patient - Social History Smoking Status: Never Smoker Drug Abuse: None Family History: None Patient has suicidal ideation: No Patient has homicidal ideation: No Psychiatric Medical History: Reports: Hx Attention Deficit Hyperactivity Disorder Past Surgical History: Reports: Hx Cholecystectomy - Immunizations Immunizations up to date: Yes Hx Diphtheria, Pertussis, Tetanus Vaccination: Yes <ANTHONY PENN - Last Filed: 01/14/18 13:38> Review of Systems - Review of Systems Constitutional: No symptoms reported EENT: No symptoms reported Cardiovascular: No symptoms reported Respiratory: No symptoms reported Gastrointestinal: See HPI, Abdominal pain, Nausea, Vomiting Genitourinary: No symptoms reported Female Genitourinary: No symptoms reported Musculoskeletal: No symptoms reported Skin: No symptoms reported Hematologic/Lymphatic: No symptoms reported Neurological/Psychological: No symptoms reported -: Yes All other systems reviewed and negative <ANTHONY PENN - Last Filed: 01/14/18 13:38> Physical Exam - General General appearance: Alert, Other - Appears uncomfortable. In distress: None - HEENT Head: Normocephalic, Atraumatic Eyes: Normal Conjunctiva: Normal Mucous membranes: Dry - Respiratory Respiratory status: No respiratory distress Chest status: Nontender Breath sounds: Normal Chest palpation: Normal - Cardiovascular Rhythm: Regular, Tachycardia Heart sounds: Normal auscultation Murmur: No Friction rub: No Gallop: None auscultated - Abdominal Inspection: Gravid female Distension: No distension Bowel sounds: Normal Tenderness: Nontender Organomegaly: No organomegaly - Back Back: Normal - Extremities General upper extremity: Normal ROM General lower extremity: Normal ROM - Neurological Neuro grossly intact: Yes Cognition: Normal Orientation: AAOx4 [place]equ[place] Coma Scale Eye Opening: Spontaneous [place] Coma Scale Verbal: Oriented [place] Coma Scale Motor: Obeys Commands [place] Coma Scale Total: 15 Speech: Normal - Psychological Associated symptoms: Normal affect, Normal mood - Skin Skin Temperature: Warm Skin Moisture: Dry Skin Color: Normal <ANTHONY PENN - Last Filed: 01/14/18 13:38> - Vital signs Vitals: Temp Pulse Resp BP Pulse Ox 98.3 F 109 H 14 138/88 H 97 01/14/18 07:38 01/14/18 07:38 01/14/18 07:38 01/14/18 07:38 01/14/18 07:38 Course - Laboratory Result Diagrams: 01/14/18 07:51 01/14/18 07:51 <ANTHONY PENN - Last Filed: 01/14/18 13:38> - Laboratory Result Diagrams: 01/14/18 07:51 01/14/18 07:51 <SANDRO PEÑALOZA - Last Filed: 01/14/18 14:26> - Vital Signs Vital signs: Temp Pulse Resp BP Pulse Ox 98.3 F 109 H 14 138/88 H 97 01/14/18 07:38 01/14/18 07:38 01/14/18 07:38 01/14/18 07:38 01/14/18 07:38 - Laboratory Laboratory results interpreted by me: 01/14/18 01/14/18 01/14/18 07:51 07:51 08:34 Seg Neutrophils % 82.5 H Absolute Neutrophils 8.4 H BUN 5 L Creatinine 0.41 L Glucose 125 H Urine Protein 30 H Urine Ketones 80 H Urine Urobilinogen 2.0 H Discharge <ANTHONY PENN - Last Filed: 01/14/18 13:38> <SANDRO PEÑALOZA - Last Filed: 01/14/18 14:26> - Discharge Clinical Impression: Nausea and vomiting during Qualifiers: Weeks of gestation: 25 weeks Qualified Code(s): Z3A.25 - 25 weeks gestation of Condition: Stable Disposition: HOME, SELF-CARE Additional Instructions: Hyperemesis Gravidarum: Hyperemesis gravidarum is the medical term for severe vomiting during . We don't know exactly why it occurs, but it's a common problem. Dehydration can occur. This reduces blood flow to the placenta, decreasing the baby's nourishment. The baby will also become dehydrated. There can be harmful changes in blood sodium, potassium, or acid balance. Our goal is to correct, and prevent, dehydration. For severe cases, we give IV fluids. Antinausea medication will be prescribed. (Don't be concerned about " defects" -- the risk to you and your baby from the hyperemesis is the biggest problem. The antinausea medication is very safe at this stage of .) Call the doctor if you have vaginal bleeding, abdominal pain, severe lightheadedness or weakness, or other alarming symptoms. Take the Reglan as prescribed for your nauseousness. You may supplement with Benadryl if the Reglan is not enough to control your nausea. Drink small sips of cool clear liquids throughout the day in the evening. Follow-up with your FAMILY LITERACY COORDINATOR doctor tomorrow for recheck if not better. RETURN TO THE EMERGENCY ROOM IF ANY NEW OR WORSENING SYMPTOMS. Prescriptions: Metoclopramide HCl [Reglan 10 mg Tablet] 1 - 2 tab PO ASDIR PRN #25 tablet PRN Reason: Referrals: MATIAS SOTO MD [Primary Care Provider] - Follow up as needed Scribe Attestation: 01/14/18 09:14 I personally performed the services described in the documentation, reviewed and edited the documentation which was dictated to the scribe in my presence, and it accurately records my words and actions. (SANDRO PEÑALOZA) Scribe Documentation - Scribe Written by Deanna:: Deanna Moss, 01/14/2018 08:26 acting as scribe for :: Suzi <ANTHONY PENN - Last Filed: 01/14/18 13:38>
[2018-01-14 08:48] LABS: ALANINE AMINOTRANSFERASE 21 U/L (9-52); ALBUMIN 3.8 g/dL (3.5-5.0); ALKALINE PHOSPHATASE 83 U/L (38-126); ANION GAP 14 (5-19); ASPARTATE AMINO TRANSFERASE 15 U/L (14-36); BILIRUBIN,DIRECT 0.2 mg/dL (0.0-0.4); BILIRUBIN,TOTAL 0.2 mg/dL (0.2-1.3); BLOOD UREA NITROGEN 5 mg/dL (7-20); CALCIUM 9.3 mg/dL (8.4-10.2); CARBON DIOXIDE 23 mmol/L (22-30); CHLORIDE 105 mmol/L (98-107); GLUCOSE 125 mg/dL (75-110); POTASSIUM 3.6 mmol/L (3.6-5.0); SODIUM 141.6 mmol/L (137-145); TOTAL PROTEIN 6.8 g/dL (6.3-8.2)
[2018-01-14] MEDS ORDERED: DEXTROSE 5%-LACTATED RINGERS 1,000 ML IV ONE ×2 (09:14→11:40)
[2018-01-14 09:29] LABS: AMORPHOUS SEDIMENT,URINE 2+ /HPF; APPEARANCE,URINE TURBID; BILIRUBIN,URINE NEGATIVE (NEGATIVE); GLUCOSE, URINE NEGATIVE (NEGATIVE); KETONES,URINE 80 mg/dL (NEGATIVE); LEUKOCYTE ESTERASE,URINE NEGATIVE (NEGATIVE); NITRITE,URINE NEGATIVE (NEGATIVE); PROTEIN,URINE 30 mg/dL (NEGATIVE); URINE SPECIFIC GRAVITY 1.018
[2018-01-14 09:30] LABS: COLOR,URINE DARK YELLOW
[2018-01-14] MEDS ORDERED: ONDANSETRON 4 MG TAB.RAPDIS PO ONE (11:39)
[2018-01-14] MEDS ORDERED: DIPHENHYDRAMINE HCL 50 MG/ML VIAL IV ONE (11:39)
[2018-01-14 14:46] VITALS: BP 121/73
== END 2018-01-14 14:48 | disposition home or self-care (01) ==
LOC: ER 07:33
DX: O21.9 Vomiting of pregnancy, unspecified (principal); O26.892 Other specified pregnancy related conditions, second trimester; R10.9 Unspecified abdominal pain; R00.0 Tachycardia, unspecified; Z3A.25 25 weeks gestation of pregnancy
CPT/HCPCS: 96376; 99284; 96361; 96374; 96375; 36415; 83735; 85025; 80053; 81001; J1200; S0119; J2765; J7030

== ENCOUNTER 2018-01-16 10:01 | Emergency (ER) | payer MEDICAID ==
[2018-01-16] MEDS ORDERED: PROMETHAZINE HCL INJ 25 MG/1 ML VIAL IM ONE (10:23)
--- NOTE | 2018-01-16 10:54 | ER Document Report ---
ED General - General Chief Complaint: Vomiting Stated Complaint: VOMITING Time Seen by Provider: 01/16/18 10:17 TRAVEL OUTSIDE OF THE [place] IN LAST 30 DAYS: No - HPI Patient complains to provider of: Vomiting Notes: Patient coming in 26 weeks for nausea and vomiting. Patient states currently on Zofran Reglan however took medications this mornig no benefit. Patient states continues to have nausea. Patient denies fevers chills diarrhea denies any vaginal discharge or vaginal bleeding. Patient dry heaving in triage however the vomitus present. Patient otherwise looks to be well hydrated no signs of dehydration on physical appearance - Related Data Allergies/Adverse Reactions: amoxicillin [Amoxicillin] Allergy (Mild, Verified 01/16/18 10:21) Hives Penicillins Allergy (Mild, Verified 01/16/18 10:21) Hives Past Medical History - Social History Smoking Status: Never Smoker Chew tobacco use (# tins/day): No Frequency of alcohol use: None Drug Abuse: None Family History: None Patient has suicidal ideation: No Patient has homicidal ideation: No - Past Medical History Cardiac Medical History: Denies: Hx Coronary Artery Disease, Hx Heart Attack, Hx Hypertension Pulmonary Medical History: Denies: Hx Asthma, Hx Bronchitis, Hx COPD, Hx Pneumonia Neurological Medical History: Denies: Hx Cerebrovascular Accident, Hx Seizures Renal/ Medical History: Denies: Hx Peritoneal Dialysis Musculoskeltal Medical History: Denies Hx Arthritis Psychiatric Medical History: Reports: Hx Attention Deficit Hyperactivity Disorder Past Surgical History: Reports: Hx Cholecystectomy - Immunizations Immunizations up to date: Yes Hx Diphtheria, Pertussis, Tetanus Vaccination: Yes Review of Systems - Review of Systems Constitutional: No symptoms reported EENT: No symptoms reported Cardiovascular: No symptoms reported Respiratory: No symptoms reported Gastrointestinal: Vomiting Genitourinary: No symptoms reported Female Genitourinary: No symptoms reported Musculoskeletal: No symptoms reported Skin: No symptoms reported Hematologic/Lymphatic: No symptoms reported Neurological/Psychological: No symptoms reported Physical Exam - Vital signs Vitals: Temp Pulse Resp BP Pulse Ox 97.8 F 93 18 144/84 H 96 01/16/18 10:18 01/16/18 10:18 01/16/18 10:18 01/16/18 10:18 01/16/18 10:18 Interpretation: Normal - General General appearance: Appears well, Alert - HEENT Head: Normocephalic, Atraumatic Eyes: Normal Pupils: PERRL - Respiratory Respiratory status: No respiratory distress Chest status: Nontender Breath sounds: Normal Chest palpation: Normal - Cardiovascular Rhythm: Regular Heart sounds: Normal auscultation Murmur: No - Abdominal Inspection: Normal, Gravid female, Obese Distension: No distension Bowel sounds: Normal Tenderness: Nontender Organomegaly: No organomegaly - Back Back: Normal, Nontender - Extremities General upper extremity: Normal inspection, Nontender, Normal color, Normal ROM , Normal temperature General lower extremity: Normal inspection, Nontender, Normal color, Normal ROM , Normal temperature, Normal weight bearing. No: Brayan's sign - Neurological Neuro grossly intact: Yes Cognition: Normal Orientation: AAOx4 [place] Coma Scale Eye Opening: Spontaneous [place] Coma Scale Verbal: Oriented [place] Coma Scale Motor: Obeys Commands [place] Coma Scale Total: 15 Speech: Normal Motor strength normal: LUE, RUE, LLE, RLE Sensory: Normal - Psychological Associated symptoms: Normal affect, Normal mood - Skin Skin Temperature: Warm Skin Moisture: Dry Skin Color: Normal Course - Re-evaluation Re-evalutation: 01/16/18 10:54 heart tones were at 140. Positive motion on this ultrasound. 01/16/18 19:34 Patient is nausea vomiting did seem to improve with Phenergan and Benadryl combination 2 bags of IV fluids given here. Urinalysis does show signs of a symptomatic bacteriuria. We will start the patient on Macrobid urine was sent for culture. Further information about use of likely just Unisom B6 and other medications [id number] given to the patient. Patient was given prescriptions for Phenergan and rectal Phenergan. - Vital Signs Vital signs: Temp Pulse Resp BP Pulse Ox 97.8 F 90 16 137/84 H 100 01/16/18 10:18 01/16/18 12:56 01/16/18 12:56 01/16/18 12:56 01/16/18 12:56 - Laboratory Result Diagrams: 01/16/18 10:57 01/16/18 10:57 Laboratory results interpreted by me: 01/16/18 01/16/18 01/16/18 10:39 10:57 10:57 Hgb 11.3 L Hct 32.9 L Seg Neutrophils % 87.0 H Lymphocytes % 9.7 L Monocytes % 2.9 L Potassium 3.4 L Carbon Dioxide 21 L BUN 4 L Creatinine 0.35 L Glucose 127 H Urine Protein 30 H Urine Ketones 80 H Ur Leukocyte Esterase MODERATE H Discharge - Discharge Clinical Impression: Nausea and vomiting during , Bacteriuria Qualifiers: Weeks of gestation: 26 weeks Qualified Code(s): Z3A.26 - 26 weeks gestation of Condition: Good Disposition: HOME, SELF-CARE Instructions: ([facility]), Vomiting ([facility]) Additional Instructions: Your laboratory studies today not show any signs of significant dehydration. Please make sure you continue taking her antinausea medication as prescribed. I will give you a prescription for Phenergan tablets and suppositories. Do not take Phenergan and Reglan together if you take Reglan you will have to wait 6 hours before you take any Phenergan you take Phenergan you have to take wait 6 hours until you take the Reglan. Your urinalysis does show slight bacteria within your urine whenever we see bacteria and presence and a urinalysis of a female patient that is we will treat it even if there is no signs of infection. We will start you on antibiotic on Macrobid. He will be on this for 7 days. I recommend trying other options for nausea control For nausea and vomiting during I recomment: Start with 10-12.5 mg of pyridoxine (vitamin B6) three times a day for 2 days. If not fully effective, Increase to 12.5 mg of pyridoxine four times a day for 2 days. If not fully effective, Increase to 25 mg of pyridoxine three times a day for 2 days. If not fully effective, Continue 25 mg pyridoxine 3 times a day, and add 12.5 mg of doxylamine before bedtime each day for 2 days. If not fully effective, Continue 25 mg pyridoxine 3 times a day, and take 12.5 mg of doxylamine twice a day. If not fully effective, Continue 25 mg pyridoxine 3 times a day, and take 12.5 mg of doxylamine three times a day. If not fully effective, Continue 25 mg pyridoxine 3 times a day, and 12.5 mg of doxylamine 3 times a day , while adding Emetrol, one to two tablespoons (15-30 cc) taken once or twice a day as needed. (Emetrol is an [id number] mixture of sugar syrups and phosphoric acid [phosphorylated carbohydrate solution]) that acts by soothing the actual wall of the gastrointestinal tract). If not fully effective, Consult with your doctor. Prescriptions: Promethazine HCl [Phenergan 25 mg Supp.rect] 25 mg [place] Q4HP PRN #20 supp.rect PRN Reason: Promethazine HCl [Phenergan 25 mg Tablet] 25 mg PO Q4HP PRN #30 tablet PRN Reason: Nitrofurantoin Monohyd/M-Cryst [Macrobid 100 mg Capsule] 100 mg PO BID #14 capsule Referrals: MATIAS SOTO MD [Primary Care Provider] - Follow up in 3-5 days
[2018-01-16] MEDS ORDERED: DIPHENHYDRAMINE HCL 50 MG/ML VIAL IV ONE (11:04)
[2018-01-16] MEDS: NORMAL SALINE 1000 ML 1,000 ML IV PRN ×2 (11:09→11:11)
[2018-01-16 11:38] LABS: ABSOLUTE LYMPHOCYTES (AUTO) 0.9 10^3/uL (0.5-4.7); ABSOLUTE MONOCYTES (AUTO) 0.3 10^3/uL (0.1-1.4); BASOPHILS % (AUTO) 0.3 % (0-2); EOSINOPHILS % (AUTO) 0.1 % (0-6); HEMATOCRIT 32.9 % (36.0-47.0); HEMOGLOBIN 11.3 g/dL (12.0-15.5); LYMPHOCYTES % (AUTO) 9.7 % (13-45); MEAN CORPUSCULAR HEMOGLOBIN 29.4 pg (27.0-33.4); MEAN CORPUSCULAR HGB CONC 34.3 g/dL (32.0-36.0); MEAN CORPUSCULAR VOLUME 86 fl (80-97); MONOCYTES % (AUTO) 2.9 % (3-13); PLATELET COUNT 219 10^3/uL (150-450); RED BLOOD COUNT 3.85 10^6/uL (3.72-5.28); RED CELL DISTRIBUTION WIDTH 13.4 % (11.5-14.0); TOTAL CELLS COUNTED % (AUTO) 100 %; WHITE BLOOD COUNT 9.2 10^3/uL (4.0-10.5)
[2018-01-16 11:55] LABS: ANION GAP 12 (5-19); BLOOD UREA NITROGEN 4 mg/dL (7-20); CARBON DIOXIDE 21 mmol/L (22-30); CHLORIDE 107 mmol/L (98-107); GLUCOSE 127 mg/dL (75-110); POTASSIUM 3.4 mmol/L (3.6-5.0)
[2018-01-16 12:10] LABS: AMORPHOUS SEDIMENT,URINE 1+ /HPF; APPEARANCE,URINE TURBID; BILIRUBIN,URINE NEGATIVE (NEGATIVE); COLOR,URINE YELLOW; GLUCOSE, URINE NEGATIVE (NEGATIVE); KETONES,URINE 80 mg/dL (NEGATIVE); LEUKOCYTE ESTERASE,URINE MODERATE (NEGATIVE); NITRITE,URINE NEGATIVE (NEGATIVE); PROTEIN,URINE 30 mg/dL (NEGATIVE); URINE SPECIFIC GRAVITY 1.017; UROBILINOGEN,URINE NEGATIVE mg/dL (<2.0)
[2018-01-16] MEDS ORDERED: NITROFURANTOIN MONOHYD/M-CRYST 100 MG CAPSULE PO ONE (12:52)
[2018-01-16 12:57] VITALS: BP 137/84
== END 2018-01-16 13:03 | disposition home or self-care (01) ==
LOC: ER 10:01
DX: O21.2 Late vomiting of pregnancy (principal); O26.892 Other specified pregnancy related conditions, second trimester; R82.71 Bacteriuria; Z3A.26 26 weeks gestation of pregnancy; Z88.0 Allergy status to penicillin
CPT/HCPCS: 99284; 96372; 96361; 96374; 36415; 87086; 85025; 80048; 81001; J1200; J2550; J7030

== ENCOUNTER 2018-02-21 21:55 | Outpatient (CLI) | payer MEDICAID ==
[2018-02-21] MEDS ORDERED: RINGERS SOLUTION,LACTATED 1,000 ML IV ONE (23:00)
[2018-02-21 23:05] LABS: APPEARANCE,URINE CLOUDY; BILIRUBIN,URINE NEGATIVE (NEGATIVE); COLOR,URINE AMBER; GLUCOSE, URINE 50 mg/dL (NEGATIVE); KETONES,URINE 80 mg/dL (NEGATIVE); LEUKOCYTE ESTERASE,URINE SMALL (NEGATIVE); NITRITE,URINE NEGATIVE (NEGATIVE); PROTEIN,URINE >=500 mg/dL (NEGATIVE); URINE SPECIFIC GRAVITY 1.028; UROBILINOGEN,URINE NEGATIVE mg/dL (<2.0)
[2018-02-21] MEDS ORDERED: ONDANSETRON 4 MG TAB.RAPDIS PO ONE (23:10)
[2018-02-21] MEDS ORDERED: ONDANSETRON 4 MG TAB.RAPDIS ONE (23:11)
[2018-02-21 23:18] LABS: URINE AMPHETAMINES SCREEN NEGATIVE; URINE BARBITURATES SCREEN NEGATIVE; URINE BENZODIAZEPINES SCREEN NEGATIVE; URINE COCAINE SCREEN NEGATIVE; URINE METHADONE SCREEN NEGATIVE; URINE PHENCYCLIDINE SCREEN NEGATIVE
[2018-02-21 23:25] LABS: URINE MARIJUANA (THC) SCREEN UNCONFIRMED POSITIVE
== END 2018-02-22 00:05 | disposition home or self-care (01) ==
LOC: LC 22:09 → EDSTATUS 22:09 → LC 02-22 00:05
PROVIDERS: ATTEND Obstetrics & Gynecology Gynecology
PROC: 4A1HXCZ Monitoring of Products of Conception, Cardiac Rate, External Approach (ICD-10-PCS; principal; 2018-02-21)
DX: O47.03 False labor before 37 completed weeks of gestation, third trimester (principal); O21.2 Late vomiting of pregnancy; Z3A.31 31 weeks gestation of pregnancy
CPT/HCPCS: 59899; 81001; 80307; S0119

== ENCOUNTER 2018-02-23 04:46 | Emergency (ER) | payer MEDICAID ==
[2018-02-23] MEDS ORDERED: NORMAL SALINE 1000 ML 1,000 ML IV ONE (05:47)
[2018-02-23] MEDS ORDERED: ONDANSETRON HCL INJ/PF 4 MG/2 ML SDV IV ONE (05:47)
[2018-02-23 06:16] LABS: ABSOLUTE LYMPHOCYTES (AUTO) 1.2 10^3/uL (0.5-4.7); ABSOLUTE MONOCYTES (AUTO) 0.3 10^3/uL (0.1-1.4); ABSOLUTE NEUT (AUTO) 8.6 10^3/uL (1.7-8.2); BASOPHILS % (AUTO) 0.1 % (0-2); HEMATOCRIT 35.3 % (36.0-47.0); LYMPHOCYTES % (AUTO) 11.9 % (13-45); MEAN CORPUSCULAR HEMOGLOBIN 28.9 pg (27.0-33.4); MEAN CORPUSCULAR VOLUME 85 fl (80-97); MONOCYTES % (AUTO) 3.3 % (3-13); PLATELET COUNT 248 10^3/uL (150-450); RED BLOOD COUNT 4.14 10^6/uL (3.72-5.28); RED CELL DISTRIBUTION WIDTH 13.2 % (11.5-14.0); SEGMENTED NEUTROPHILS % (AUTO) 84.7 % (42-78); TOTAL CELLS COUNTED % (AUTO) 100 %; WHITE BLOOD COUNT 10.1 10^3/uL (4.0-10.5)
[2018-02-23 06:36] LABS: ALANINE AMINOTRANSFERASE 23 U/L (9-52); ALBUMIN 4.2 g/dL (3.5-5.0); ALKALINE PHOSPHATASE 172 U/L (38-126); ANION GAP 17 (5-19); ASPARTATE AMINO TRANSFERASE 15 U/L (14-36); BILIRUBIN,DIRECT 0.3 mg/dL (0.0-0.4); BILIRUBIN,TOTAL 0.6 mg/dL (0.2-1.3); BLOOD UREA NITROGEN 4 mg/dL (7-20); CALCIUM 9.3 mg/dL (8.4-10.2); CARBON DIOXIDE 22 mmol/L (22-30); CHLORIDE 105 mmol/L (98-107); GLUCOSE 109 mg/dL (75-110); POTASSIUM 3.4 mmol/L (3.6-5.0); SODIUM 143.7 mmol/L (137-145); TOTAL PROTEIN 7.5 g/dL (6.3-8.2)
[2018-02-23 06:43] LABS: APPEARANCE,URINE SLIGHTLY-CLOUDY; BILIRUBIN,URINE NEGATIVE (NEGATIVE); COLOR,URINE YELLOW; GLUCOSE, URINE 50 mg/dL (NEGATIVE); KETONES,URINE 80 mg/dL (NEGATIVE); LEUKOCYTE ESTERASE,URINE SMALL (NEGATIVE); NITRITE,URINE NEGATIVE (NEGATIVE); PROTEIN,URINE 100 mg/dL (NEGATIVE); URINE SPECIFIC GRAVITY 1.025; UROBILINOGEN,URINE NEGATIVE mg/dL (<2.0)
--- NOTE | 2018-02-23 07:10 | ER Document Report ---
ED General - General Chief Complaint: Vomiting Stated Complaint: VOMITING Time Seen by Provider: 02/23/18 06:07 Notes: 22-year-old female who is 13 week 2 weeks , she is a presents emergency department complaining of vomiting since 9 PM last night. States she went to [employer] and then started vomiting, denies any abdominal pain, denies any blood in her vomit, states that she is still feeling the same amount of movement as before, denies any change in her vaginal discharge, denies any contractions. Patient states that she has had frequent vomiting throughout this entire , states that there is nothing different about this episode than prior episodes, states that nobody else who went to [employer] has been vomiting. TRAVEL OUTSIDE OF THE [place] IN LAST 30 DAYS: No - Related Data Allergies/Adverse Reactions: amoxicillin [Amoxicillin] Allergy (Mild, Verified 02/21/18 23:40) Hives Penicillins Allergy (Mild, Verified 02/21/18 23:40) Hives Past Medical History - General Information source: Patient - Social History Smoking Status: Never Smoker Chew tobacco use (# tins/day): No Frequency of alcohol use: None Drug Abuse: None Family History: None Patient has suicidal ideation: No Patient has homicidal ideation: No - Past Medical History Cardiac Medical History: Denies: Hx Coronary Artery Disease, Hx Heart Attack, Hx Hypertension Pulmonary Medical History: Denies: Hx Asthma, Hx Bronchitis, Hx COPD, Hx Pneumonia Neurological Medical History: Denies: Hx Cerebrovascular Accident, Hx Seizures Renal/ Medical History: Denies: Hx Peritoneal Dialysis Musculoskeletal Medical History: Denies Hx Arthritis Psychiatric Medical History: Reports: Hx Attention Deficit Hyperactivity Disorder Past Surgical History: Reports: Hx Cholecystectomy - Immunizations Immunizations up to date: Yes Hx Diphtheria, Pertussis, Tetanus Vaccination: Yes Review of Systems - Review of Systems Constitutional: No symptoms reported Cardiovascular: No symptoms reported Respiratory: No symptoms reported Gastrointestinal: See HPI Genitourinary: No symptoms reported. denies: Burning, Dysuria Female Genitourinary: See HPI, -: Yes All other systems reviewed and negative Physical Exam - Vital signs Vitals: Temp Pulse Resp BP Pulse Ox 98.5 F 106 H 20 142/95 H 99 02/23/18 04:51 02/23/18 04:51 02/23/18 04:51 02/23/18 04:51 02/23/18 04:51 Interpretation: Hypertensive, Tachycardic - Notes Notes: GENERAL: Alert, interacts well. No acute distress. HEAD: Normocephalic, atraumatic EYES: Pupils equal, round and reactive to light, extraocular movements intact. ENT: Oral mucosa moist, tongue midline. NECK: Full range of motion, supple, trachea midline. LUNGS: Clear to auscultation bilaterally, no wheezes, rales or rhonchi, no respiratory distress. HEART: Regular rate and rhythm, no murmurs, gallops, rubs. ABDOMEN: Gravid, smaller than expected for dates, nontender to palpation, bowel sounds present in all 4 quadrants. EXTREMITIES: Moves all 4 extremities spontaneously, no edema, radial and dorsalis pedis pulses 2/4 bilaterally. No cyanosis. NEUROLOGICAL: Alert and oriented x3, normal speech, biceps and patellar DTRs 2 + bilaterally. PSYCH: Normal mood, normal affect. SKIN: Warm, Dry, normal turgor, no rashes or lesions noted. Course - Re-evaluation Re-evalutation: 02/23/18 07:51 CBC grossly unremarkable, CMP shows slightly low potassium at 3.4, this is repleted by mouth, no evidence of dehydration or renal failure on CMP, lipase normal, urinalysis does show ketones and small leukocyte esterase, given that she is this will be treated as a true urinary tract infection, I am treating with Keflex, and is being sent for culture. Patient was hydrated with a liter of normal saline, vomiting resolved with Zofran. Patient has a few Zofran left at home but I will prescribe her more. No contractions, no indication for monitoring on labor and heart tones normal at 147. Discharge to home. - Vital Signs Vital signs: Temp Pulse Resp BP Pulse Ox 98.5 F 106 H 20 142/95 H 99 02/23/18 04:51 02/23/18 04:51 02/23/18 04:51 02/23/18 04:51 02/23/18 04:51 - Laboratory Result Diagrams: 02/23/18 05:44 02/23/18 05:44 Laboratory results interpreted by me: 02/23/18 02/23/18 02/23/18 05:44 05:44 05:56 Hct 35.3 L Seg Neutrophils % 84.7 H Lymphocytes % 11.9 L Absolute Neutrophils 8.6 H Potassium 3.4 L BUN 4 L Creatinine 0.42 L Alkaline Phosphatase 172 H Urine Protein 100 H Urine Glucose (UA) 50 H Urine Ketones 80 H Ur Leukocyte Esterase SMALL H Discharge - Discharge Clinical Impression: Nausea and vomiting during , Hypokalemia, Urinary tract infection during in third trimester, antepartum Condition: Stable Disposition: HOME, SELF-CARE Additional Instructions: Please use the Zofran as needed for vomiting. If your vomiting does not stop, if you develop contractions or if you have any new or concerning symptoms please return to the hospital. Please take the Keflex as directed until it is gone. You have a urinary tract infection. Prescriptions: Cephalexin Monohydrate [Keflex 500 mg Capsule] 500 mg PO Q6H 5 Days capsule Ondansetron [Zofran Odt 4 mg Tablet] 1 - 2 tab PO Q4H PRN #15 tab.rapdis PRN Reason: For Nausea/Vomiting Referrals: RAMIREZ CARDENAS MD [Primary Care Provider] - Follow up in 3-5 days
[2018-02-23] MEDS ORDERED: POTASSIUM CHLORIDE 20 MEQ/15 ML UDCUP PO ONE (07:29)
[2018-02-23] MEDS ORDERED: CEPHALEXIN 500 MG CAPSULE PO ONE (07:30)
[2018-02-23] MEDS ORDERED: ONDANSETRON 4 MG TAB.RAPDIS PO ONE (07:39)
[2018-02-23] MEDS ORDERED: FAMOTIDINE 20 MG TABLET PO ONE (07:50)
[2018-02-23 08:42] VITALS: BP 110/68
== END 2018-02-23 08:42 | disposition home or self-care (01) ==
LOC: ER 04:46
DX: O21.9 Vomiting of pregnancy, unspecified (principal); O23.41 Unspecified infection of urinary tract in pregnancy, first trimester; E87.6 Hypokalemia; Z3A.13 13 weeks gestation of pregnancy; Z88.0 Allergy status to penicillin; Z90.49 Acquired absence of other specified parts of digestive tract
CPT/HCPCS: 99283; 96361; 96374; 36415; 87086; 83690; 85025; 80053; 81001; J3490 ×2; S0119; J2405; J7030

== ENCOUNTER 2018-03-23 12:48 | Observation (INO) | payer MEDICAID ==
[2018-03-23 13:39] LABS: APPEARANCE,URINE CLOUDY; BILIRUBIN,URINE NEGATIVE (NEGATIVE); COLOR,URINE AMBER; GLUCOSE, URINE NEGATIVE (NEGATIVE); KETONES,URINE 80 mg/dL (NEGATIVE); LEUKOCYTE ESTERASE,URINE LARGE (NEGATIVE); NITRITE,URINE NEGATIVE (NEGATIVE); PROTEIN,URINE 30 mg/dL (NEGATIVE)
[2018-03-23 13:55] LABS: URINE AMPHETAMINES SCREEN NEGATIVE; URINE BARBITURATES SCREEN NEGATIVE; URINE BENZODIAZEPINES SCREEN NEGATIVE; URINE COCAINE SCREEN NEGATIVE; URINE METHADONE SCREEN NEGATIVE; URINE PHENCYCLIDINE SCREEN NEGATIVE
[2018-03-23 14:02] LABS: URINE MARIJUANA (THC) SCREEN UNCONFIRMED POSITIVE
[2018-03-23] MEDS ORDERED: PROMETHAZINE HCL INJ 25 MG/1 ML VIAL IV ONE (14:08)
[2018-03-23] MEDS ORDERED: PROMETHAZINE HCL INJ 25 MG/1 ML VIAL ONE (14:11)
[2018-03-23 17:21] LABS: ABSOLUTE LYMPHOCYTES (AUTO) 0.8 10^3/uL (0.5-4.7); ABSOLUTE MONOCYTES (AUTO) 0.3 10^3/uL (0.1-1.4); ABSOLUTE NEUT (AUTO) 10.5 10^3/uL (1.7-8.2); BASOPHILS % (AUTO) 0.2 % (0-2); HEMOGLOBIN 10.8 g/dL (12.0-15.5); LYMPHOCYTES % (AUTO) 7.1 % (13-45); MEAN CORPUSCULAR HEMOGLOBIN 28.5 pg (27.0-33.4); MEAN CORPUSCULAR HGB CONC 33.7 g/dL (32.0-36.0); MEAN CORPUSCULAR VOLUME 85 fl (80-97); MONOCYTES % (AUTO) 2.2 % (3-13); PLATELET COUNT 227 10^3/uL (150-450); RED BLOOD COUNT 3.78 10^6/uL (3.72-5.28); RED CELL DISTRIBUTION WIDTH 13.9 % (11.5-14.0); SEGMENTED NEUTROPHILS % (AUTO) 90.5 % (42-78); TOTAL CELLS COUNTED % (AUTO) 100 %; WHITE BLOOD COUNT 11.6 10^3/uL (4.0-10.5)
[2018-03-23] MEDS ORDERED: ONDANSETRON HCL INJ/PF 4 MG/2 ML SDV IV ONE ×2 (18:39→22:38)
[2018-03-23] MEDS ORDERED: ONDANSETRON HCL INJ/PF 4 MG/2 ML SDV ONE ×2 (18:47→22:33)
[2018-03-23 19:07] LABS: ALANINE AMINOTRANSFERASE 16 U/L (9-52); ALBUMIN 3.7 g/dL (3.5-5.0); ALKALINE PHOSPHATASE 259 U/L (38-126); AMYLASE 34 U/L (30-110); ANION GAP 12 (5-19); ASPARTATE AMINO TRANSFERASE 13 U/L (14-36); BILIRUBIN,DIRECT 0.2 mg/dL (0.0-0.4); BILIRUBIN,TOTAL 0.3 mg/dL (0.2-1.3); BLOOD UREA NITROGEN 6 mg/dL (7-20); CALCIUM 9.2 mg/dL (8.4-10.2); CARBON DIOXIDE 23 mmol/L (22-30); CHLORIDE 106 mmol/L (98-107); GLUCOSE 119 mg/dL (75-110); LIPASE 67.5 U/L (23-300); POTASSIUM 3.9 mmol/L (3.6-5.0); SODIUM 140.7 mmol/L (137-145); TOTAL PROTEIN 6.9 g/dL (6.3-8.2)
--- NOTE | 2018-03-23 22:59 | Non Stress Test Report ---
Non Stress Test Datetime Report Generated by CPN: 03/23/2018 22:58 DEMOGRAPHIC EGA NST: 35.1 EGA NST: 35.1 INDICATION Indication for Study: Ordered by Provider Indication for Study: Ordered by Provider MONITORING Monitor Explained: Monitor Explained; Test Explained; Patient Verbalized Understanding Monitor Explained: Monitor Explained; Test Explained; Patient Verbalized Understanding Time on Monitor: 03/23/2018 21:55 Time on Monitor: 03/23/2018 14:25 Time off Monitor: 03/23/2018 22:26 Time off Monitor: 03/23/2018 15:09 NST Duration: 31 NST Duration: 44 NST INTERVENTIONS NST Interventions: IV Fluids; Reposition Patient Physician Notified NST: Cedillo Physician Notified NST: Dr. Cedillo BABY A: [id number] BABY A Movement : Present Movement : Present Contraction Frequency : none Contraction Frequency : 0/pt denies FHR Baseline : 145 FHR Baseline : 125 Accelerations : 15X15 Accelerations : 15X15 Decelerations : None Decelerations : None Variability : Moderate 6-25bpm Variability : Moderate 6-25bpm NST Review: Meets Criteria for Reactive NST NST Review: Meets Criteria for Reactive NST NST Review and Verified By : Patricia Duran RN NST Review and Verified By : Carlos Mac RN NST Results: Reactive NST Results: Reactive NST REPORT Report Trigger: Send Report
== END 2018-03-23 22:49 | disposition home or self-care (01) ==
LOC: LC 12:48 → LR 18:07
PROVIDERS: ADMIT Obstetrics & Gynecology; ATTEND Obstetrics & Gynecology
PROC: 4A0HXCZ Measurement of Products of Conception, Cardiac Rate, External Approach (ICD-10-PCS; principal; 2018-03-23)
DX: O21.0 Mild hyperemesis gravidarum (principal); O47.03 False labor before 37 completed weeks of gestation, third trimester; Z3A.35 35 weeks gestation of pregnancy
CPT/HCPCS: 59025; 36415; 82150; 83690; 85025; 80053; 81001; 80307; J2550; J2405

== ENCOUNTER 2018-03-25 14:04 | Emergency (ER) | payer MEDICAID ==
[2018-03-25] MEDS ORDERED: DEXTROSE 5%-NORMAL SALINE 1,000 ML IV ONE ×2 (15:20→15:22)
[2018-03-25] MEDS ORDERED: ONDANSETRON HCL INJ/PF 4 MG/2 ML SDV IV ONE (15:21)
--- NOTE | 2018-03-25 15:22 | ER Document Report ---
ED Medical Screen (RME) - General Chief Complaint: Vomiting Stated Complaint: VOMITING Time Seen by Provider: 03/25/18 15:18 Mode of Arrival: Ambulatory Information source: Patient Notes: This is a 22-year-old female who is 35 weeks that presents to the emergency room with nausea, vomiting not tolerating fluid. Patient denies any abdominal cramping or contractions. Patient denies any vaginal bleeding. Patient denies fever or dysuria. TRAVEL OUTSIDE OF THE [place] IN LAST 30 DAYS: No - Related Data Allergies/Adverse Reactions: amoxicillin [Amoxicillin] Allergy (Mild, Verified 03/25/18 14:08) Hives Penicillins Allergy (Mild, Verified 03/25/18 14:08) Hives Past Medical History - Past Medical History Cardiac Medical History: Denies: Hx Coronary Artery Disease, Hx Heart Attack, Hx Hypertension Pulmonary Medical History: Denies: Hx Asthma, Hx Bronchitis, Hx COPD, Hx Pneumonia Neurological Medical History: Denies: Hx Cerebrovascular Accident, Hx Seizures Renal/ Medical History: Denies: Hx Peritoneal Dialysis Musculoskeltal Medical History: Denies Hx Arthritis Psychiatric Medical History: Reports: Hx Attention Deficit Hyperactivity Disorder Past Surgical History: Reports: Hx Cholecystectomy - Immunizations Immunizations up to date: Yes Hx Diphtheria, Pertussis, Tetanus Vaccination: Yes Physical Exam - Vital signs Vitals: Temp Pulse Resp BP Pulse Ox 98.7 F 108 H 16 145/93 H 98 03/25/18 14:16 03/25/18 14:16 03/25/18 14:16 03/25/18 14:16 03/25/18 14:16 Course - Vital Signs Vital signs: Temp Pulse Resp BP Pulse Ox 98.7 F 108 H 16 145/93 H 98 03/25/18 14:16 03/25/18 14:16 03/25/18 14:16 03/25/18 14:16 03/25/18 14:16 Doctor's Discharge - Discharge Referrals: ALFREDO HERRERA PA [Primary Care Provider] - Follow up as needed
[2018-03-25] MEDS ORDERED: THIAMINE HCL 100 MG in NORMAL SALINE 50 ML IV ONE (15:23)
[2018-03-25 15:57] LABS: ABSOLUTE LYMPHOCYTES (AUTO) 0.7 10^3/uL (0.5-4.7); ABSOLUTE MONOCYTES (AUTO) 0.2 10^3/uL (0.1-1.4); ABSOLUTE NEUT (AUTO) 8.1 10^3/uL (1.7-8.2); BASOPHILS % (AUTO) 0.3 % (0-2); HEMATOCRIT 32.4 % (36.0-47.0); MEAN CORPUSCULAR VOLUME 85 fl (80-97); MONOCYTES % (AUTO) 2.1 % (3-13); PLATELET COUNT 232 10^3/uL (150-450); RED CELL DISTRIBUTION WIDTH 14.1 % (11.5-14.0); SEGMENTED NEUTROPHILS % (AUTO) 89.6 % (42-78); TOTAL CELLS COUNTED % (AUTO) 100 %
[2018-03-25 16:13] LABS: ALANINE AMINOTRANSFERASE 19 U/L (9-52); ALBUMIN 3.6 g/dL (3.5-5.0); ALKALINE PHOSPHATASE 255 U/L (38-126); ANION GAP 14 (5-19); ASPARTATE AMINO TRANSFERASE 17 U/L (14-36); BILIRUBIN,DIRECT 0.3 mg/dL (0.0-0.4); BILIRUBIN,TOTAL 0.5 mg/dL (0.2-1.3); BLOOD UREA NITROGEN 5 mg/dL (7-20); CALCIUM 8.9 mg/dL (8.4-10.2); CARBON DIOXIDE 23 mmol/L (22-30); CHLORIDE 104 mmol/L (98-107); GLUCOSE 99 mg/dL (75-110); POTASSIUM 3.5 mmol/L (3.6-5.0); TOTAL PROTEIN 6.8 g/dL (6.3-8.2)
[2018-03-25 16:37] LABS: APPEARANCE,URINE CLOUDY; BILIRUBIN,URINE NEGATIVE (NEGATIVE); COLOR,URINE AMBER; GLUCOSE, URINE >=500 mg/dL (NEGATIVE); KETONES,URINE 80 mg/dL (NEGATIVE); LEUKOCYTE ESTERASE,URINE LARGE (NEGATIVE); NITRITE,URINE NEGATIVE (NEGATIVE); PROTEIN,URINE 100 mg/dL (NEGATIVE); URINE SPECIFIC GRAVITY 1.026; UROBILINOGEN,URINE NEGATIVE mg/dL (<2.0)
[2018-03-25] MEDS ORDERED: DIPHENHYDRAMINE HCL 50 MG/ML VIAL IV ONE (18:00)
[2018-03-25] MEDS ORDERED: PROMETHAZINE HCL 25 MG TABLET PO ONE (18:00)
--- NOTE | 2018-03-25 18:02 | ER Document Report ---
ED General - General Chief Complaint: Vomiting Stated Complaint: VOMITING Time Seen by Provider: 03/25/18 15:18 Mode of Arrival: Ambulatory Information source: Patient, [facility] Records Notes: 22-year-old female at 35 weeks presents with complaint of nausea and vomiting that started this morning. Patient states that she has been unable to tolerate any food or liquids since this morning despite taking Zofran. She does state that she has had hyperemesis throughout her . She denies any abdominal pain, cramping, vaginal bleeding. She has been receiving care with women's health. Patient had no complications or history of preeclampsia with her first . TRAVEL OUTSIDE OF THE [place] IN LAST 30 DAYS: No - HPI Onset: This morning Onset/Duration: Gradual, Persistent, Worse Quality of pain: No pain Associated symptoms: Nausea, Vomiting. denies: Shortness of breath Exacerbated by: Denies Relieved by: Denies Similar symptoms previously: Yes Recently seen / treated by doctor: Yes - 03/23/18 - Related Data Allergies/Adverse Reactions: amoxicillin [Amoxicillin] Allergy (Mild, Verified 03/25/18 14:08) Hives Penicillins Allergy (Mild, Verified 03/25/18 14:08) Hives Past Medical History - General Information source: Patient - Social History Smoking Status: Never Smoker Frequency of alcohol use: None Drug Abuse: None Lives with: Family Family History: None Patient has suicidal ideation: No Patient has homicidal ideation: No - Past Medical History Cardiac Medical History: Denies: Hx Coronary Artery Disease, Hx Heart Attack, Hx Hypertension Pulmonary Medical History: Denies: Hx Asthma, Hx Bronchitis, Hx COPD, Hx Pneumonia Neurological Medical History: Denies: Hx Cerebrovascular Accident, Hx Seizures Renal/ Medical History: Denies: Hx Peritoneal Dialysis Musculoskeletal Medical History: Denies Hx Arthritis Psychiatric Medical History: Reports: Hx Attention Deficit Hyperactivity Disorder Past Surgical History: Reports: Hx Cholecystectomy - Immunizations Immunizations up to date: Yes Hx Diphtheria, Pertussis, Tetanus Vaccination: Yes Review of Systems - Review of Systems Notes: REVIEW OF SYSTEMS: CONSTITUTIONAL : Denies fever, chills, or sweats. Denies recent illness. Denies weight loss, recent hospitalizations. EENT: Denies visual changes, eye pain. Denies nasal or sinus congestion or discharge. Denies sore throat, oral lesions, difficulty swallowing. CARDIOVASCULAR: Denies chest pain. Denies palpitations. Denies lower extremity edema. RESPIRATORY: Denies cough, cold, or chest congestion. Denies shortness of breath, wheezing. GASTROINTESTINAL: Denies abdominal pain or distention. Denies diarrhea. Denies blood in vomitus, stools, or per rectum. Denies black, tarry stools. Denies constipation. GENITOURINARY: Denies difficulty urinating, painful urination, frequency, blood in urine, or vaginal discharge denies vaginal bleeding. MUSCULOSKELETAL: Denies back or neck pain or stiffness. Denies joint pain or swelling. SKIN: Denies rash, lesions or sores. HEMATOLOGIC : Denies easy bruising or bleeding. LYMPHATIC: Denies swollen glands. NEUROLOGICAL: Denies confusion or altered mental status. Denies passing out or loss of consciousness. Denies dizziness or lightheadedness. Denies headache. Denies weakness or paralysis. Denies problems difficulty with ambulation, slurred speech. Denies sensory loss, numbness, or tingling. Denies seizures. PSYCHIATRIC: Denies anxiety or stress. Denies depression, suicidal ideation, or homicidal ideation. Denies visual or auditory hallucinations. Physical Exam - Vital signs Vitals: Temp Pulse Resp BP Pulse Ox 98.7 F 108 H 16 145/93 H 98 03/25/18 14:16 03/25/18 14:16 03/25/18 14:16 03/25/18 14:16 03/25/18 14:16 - Notes Notes: PHYSICAL EXAMINATION: GENERAL: Well-appearing, well-nourished and in no acute distress. HEAD: Atraumatic, normocephalic. EYES: Pupils equal round and reactive to light, extraocular movements intact, conjunctiva are normal. ENT: Nares patent, oropharynx clear without exudates. Moist mucous membranes. NECK: Normal range of motion, supple without lymphadenopathy LUNGS: Breath sounds clear to auscultation bilaterally and equal. No wheezes rales or rhonchi. HEART: Regular rate and rhythm without murmurs ABDOMEN: Soft, nontender, nondistended abdomen. No guarding, no rebound. No masses appreciated. Female : deferred Musculoskeletal: Normal range of motion, no pitting or edema. No cyanosis. NEUROLOGICAL: Cranial nerves grossly intact. Normal speech, normal gait. Normal sensory, motor exams PSYCH: Normal mood, normal affect. SKIN: Warm, Dry, normal turgor, no rashes or lesions noted. Course - Re-evaluation Re-evalutation: Laboratory 03/25/18 03/25/18 03/25/18 15:33 15:33 16:17 WBC 9.0 RBC 3.80 Hgb 11.0 L Hct 32.4 L MCV 85 MCH 29.0 MCHC 34.0 RDW 14.1 H Plt Count 232 Seg Neutrophils % 89.6 H Lymphocytes % 8.0 L Monocytes % 2.1 L Eosinophils % 0.0 Basophils % 0.3 Absolute Neutrophils 8.1 Absolute Lymphocytes 0.7 Absolute Monocytes 0.2 Absolute Eosinophils 0.0 Absolute Basophils 0.0 Sodium 141.0 Potassium 3.5 L Chloride 104 Carbon Dioxide 23 Anion Gap 14 BUN 5 L Creatinine 0.40 L Est GFR ( Amer) > 60 Est GFR (Non-Af Amer) > 60 Glucose 99 Calcium 8.9 Total Bilirubin 0.5 Direct Bilirubin 0.3 Neonat Total Bilirubin Not Reportable Neonat Direct Bilirubin Not Reportable Neonat Indirect Bili Not Reportable AST 17 ALT 19 Alkaline Phosphatase 255 H Total Protein 6.8 Albumin 3.6 Urine Color SCARLET Urine Appearance CLOUDY Urine pH 6.0 Ur Specific [place] 1.026 Urine Protein 100 H Urine Glucose (UA) >=500 H Urine Ketones 80 H Urine Blood NEGATIVE Urine Nitrite NEGATIVE Urine Bilirubin NEGATIVE Urine Urobilinogen NEGATIVE Ur Leukocyte Esterase LARGE H Urine WBC (Auto) 57 Urine RBC (Auto) 20 Urine Bacteria (Auto) 3+ Squamous Epi Cells Auto 10 Urine Mucus (Auto) MANY Urine Ascorbic Acid NEGATIVE 22-year-old female at 35 weeks presents with complaint of nausea and vomiting that started this morning. Patient states that she has been unable to tolerate any food or liquids since this morning despite taking Zofran. She does state that she has had hyperemesis throughout her . She denies any abdominal pain, cramping, vaginal bleeding. She has been receiving care with women's health. Patient had no complications or history of preeclampsia with her first . Patient was seen by myself upon arrival. Vital signs were reviewed. Patient is afebrile, normotensive and not hypoxic. Patient does not appear toxic or dehydrated. They are in no acute distress. Previous medical records and nursing notes reviewed. Patient has a normal physical exam. She denies any abdominal pain or vaginal bleeding. CBC is without leukocytosis or anemia. CMP shows no electrolyte abnormalities. She does have an elevated alk phos which appears to be the patient's baseline after reviewing previous labs. Urinalysis is significant for greater than 500 glucose, ketones, large leuk esterase and 57 WBCs. Patient reports that she has recently been treated for a urinary tract infection. 03/25/18 19:[address] Gray who is familiar with the patient and reviewed her blood pressure which has been elevated over the last week as well as her urinalysis which does show protein and glucose in her urine. Dr. Gray does not advise any further recommendations once nausea and vomiting have been controlled. He does want to see her in the office tomorrow. 03/25/18 20:07 Patient reports improvement of her nausea. She was informed that she needs to be seen tomorrow by Dr. Gray. I will provide her with a few Zofran for home. 03/26/18 22:54 03/26/18 22:54 03/26/18 22:56 - Vital Signs Vital signs: Temp Pulse Resp BP Pulse Ox 98.0 F 90 18 119/71 100 03/25/18 20:45 03/25/18 20:45 03/25/18 20:45 03/25/18 20:34 03/25/18 20:45 - Laboratory Result Diagrams: 03/25/18 15:33 03/25/18 15:33 Laboratory results interpreted by me: 03/25/18 03/25/18 03/25/18 15:33 15:33 16:17 Hgb 11.0 L Hct 32.4 L RDW 14.1 H Seg Neutrophils % 89.6 H Lymphocytes % 8.0 L Monocytes % 2.1 L Potassium 3.5 L BUN 5 L Creatinine 0.40 L Alkaline Phosphatase 255 H Urine Protein 100 H Urine Glucose (UA) >=500 H Urine Ketones 80 H Ur Leukocyte Esterase LARGE H Discharge - Discharge Clinical Impression: Hyperemesis, Elevated blood pressure reading, Glucosuria Proteinuria Qualifiers: Proteinuria type: unspecified Qualified Code(s): R80.9 - Proteinuria, unspecified UTI (urinary tract infection) Qualifiers: Urinary tract infection type: site unspecified Hematuria presence: without hematuria Qualified Code(s): N39.0 - Urinary tract infection, site not specified Condition: Good Disposition: HOME, SELF-CARE Instructions: Antinausea Medication ([facility]), Hyperemesis Gravidarum ([facility]), Intravenous (IV) Fluids ([facility]), Urinary Tract Infection ([facility]) Additional Instructions: Dr. Gray would like to see you tomorrow in his office. Prescriptions: Ondansetron HCl [Zofran 4 mg Tablet] 1 tab PO Q6H PRN #10 tablet PRN Reason: Referrals: ALFREDO HERRERA PA [PHYSICIAN [facility]] - Follow up as needed
[2018-03-25] MEDS ORDERED: THIAMINE HCL INJ 200 MG/2 ML VIAL IV PRN (19:28)
[2018-03-25 22:19] VITALS: BP 119/71
== END 2018-03-25 20:45 | disposition home or self-care (01) ==
LOC: ER 14:04
DX: O21.0 Mild hyperemesis gravidarum (principal); O23.43 Unspecified infection of urinary tract in pregnancy, third trimester; O12.13 Gestational proteinuria, third trimester; O26.893 Other specified pregnancy related conditions, third trimester; R81 Glycosuria; R03.0 Elevated blood-pressure reading, without diagnosis of hypertension; Z3A.35 35 weeks gestation of pregnancy; Z88.0 Allergy status to penicillin; Z90.49 Acquired absence of other specified parts of digestive tract
CPT/HCPCS: 99284; 96361; 96375; 96365; 36415; 85025; 80053; 81001; J1200; J3490; J3411; J2405

== ENCOUNTER 2018-04-30 05:43 | Inpatient (IN) | payer MEDICAID ==
--- NOTE | 2018-04-30 05:45 | Admission Physical ---
Datetime Report Generated by CPN: 04/30/2018 05:44 CURRENT ADMISSION Hx Assessment: The History has been Reviewed and is Current Chief Complaint: Scheduled Induction of Labor Indication for Induction: Postterm; Maternal Diabetes Admit Impression : Postterm, Intrauterine Admit Plan: Admit to Unit; Initiate Labor Induction Protocol ALLERGIES Medication Allergies: Yes Medication Allergies: Penicillins/ID/Hives (03/25/2018); amoxicillin/ID/Hives (03/25/2018) Latex: No Latex Allergies Food Allergies: N/A Environmental Allergies: N/A OBSTETRICAL HISTORY EDC: 04/26/2018 00:00 : 2 Para: 1 Term: 1 : 0 SAB: 0 IAB: 0 Ectopic: 0 Livin Cesareans: 0 VBACs: 0 Multiple Births: 0 Gestational Diabetes: No Rh Sensitization: No Incompetent Cervix: No [place]: No Infertility: No ART Treatment: No Uterine Anomaly: No IUGR: No Hx Previous C/S: No Macrosomia: No Hx Loss/Stillborn: No PIH: No Hx : No Placenta Previa/Abruption: No Depression/PP Depression: No PTL/PROM: No Post Hemorrhage: No Current Procedures: Ultrasound; NST Obstetrical History Comments: G1- 2014, 41 weeks, 7lbs 13oz male, ,epidural, IOL for [place] G2- current SEE RECORDS Alcohol: No Marijuana : Yes Cocaine: No Other Illicit Drugs: No Cigarettes: Never Smoker. 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 Surgery: No Heart Disease: No Hosp/Surgery: No Autoimmune Disorder: No Anesthetic Complications: No Kidney Disease: No Abnormal Pap Smear: No Neuro/Epilepsy: No Psychiatric Disorders: No Other Medical Diseases: No Hepatitis/Liver Disease: No Significant Family History: No Varicosities/Phlebitis: No Trauma/Violence : No Thyroid Dysfunction: No INFECTIOUS HISTORY Gonorrhea: No Genital Herpes: No Chlamydia: No Tuberculosis: No Syphilis: No Hepatitis: No HIV/AIDS Exposure: No Rash or Viral Illness: No HPV: No PHYSICAL EXAM General: Normal HEENT: Normal Neurologic: Normal Thyroid: Normal Heart: Normal Lungs: Normal Breast: Normal Back: Normal Abdomen: Normal Genitourinary Exam: Normal Extremities: Normal DTRs: Normal Pelvic Type: Adequate FETUS A EGA: 40.4 Admit Comment: GDM A1; GERD; previous PPH PLANS FOR LABOR AND DELIVERY Labor and Delivery: None Pain Management: None Feeding Preference: Formula Benefit of Breast Feed Discussed: Yes Circumcision: Yes INFORMED CONSENT Signature: with User ID: [email or web address]
[2018-04-30] MEDS ORDERED: OXYTOCIN/NORMAL SALINE 20 UNIT/1,000 ML RTUINJ IV PRN ×2 (05:56→15:22)
[2018-04-30] MEDS ORDERED: RINGERS SOLUTION,LACTATED 300 ML IV ONE (06:05)
[2018-04-30] MEDS ORDERED: OXYTOCIN 10 UNIT/ML VIAL ONE (06:42)
[2018-04-30] MEDS ORDERED: MISOPROSTOL 0.2 MG TABLET ONE (06:43)
[2018-04-30] MEDS ORDERED: ONDANSETRON HCL INJ/PF 4 MG/2 ML SDV ONE (06:43)
[2018-04-30] MEDS ORDERED: LIDOCAINE 1% INJ-PF (10 MG/ML) 30 ML SDV ONE (06:43)
[2018-04-30] MEDS ORDERED: OXYTOCIN/NORMAL SALINE 20 UNIT/1,000 ML RTUINJ ONE (06:43)
[2018-04-30] MEDS: RINGERS SOLUTION,LACTATED 1,000 ML IV PRN ×3 (06:50→12:38)
[2018-04-30] MEDS ORDERED: ONDANSETRON HCL INJ/PF 4 MG/2 ML SDV IV ONE (06:50)
[2018-04-30 07:12] LABS: ABSOLUTE LYMPHOCYTES (AUTO) 1.6 10^3/uL (0.5-4.7); ABSOLUTE MONOCYTES (AUTO) 0.4 10^3/uL (0.1-1.4); ABSOLUTE NEUT (AUTO) 4.3 10^3/uL (1.7-8.2); BASOPHILS % (AUTO) 0.4 % (0-2); EOSINOPHILS % (AUTO) 0.3 % (0-6); HEMATOCRIT 30.6 % (36.0-47.0); HEMOGLOBIN 10.7 g/dL (12.0-15.5); LYMPHOCYTES % (AUTO) 25.6 % (13-45); MEAN CORPUSCULAR HEMOGLOBIN 29.8 pg (27.0-33.4); MEAN CORPUSCULAR VOLUME 85 fl (80-97); MONOCYTES % (AUTO) 6.6 % (3-13); PLATELET COUNT 203 10^3/uL (150-450); RED BLOOD COUNT 3.59 10^6/uL (3.72-5.28); SEGMENTED NEUTROPHILS % (AUTO) 67.1 % (42-78); TOTAL CELLS COUNTED % (AUTO) 100 %; WHITE BLOOD COUNT 6.4 10^3/uL (4.0-10.5)
[2018-04-30 07:14] LABS: APPEARANCE,URINE CLOUDY; BILIRUBIN,URINE NEGATIVE (NEGATIVE); COLOR,URINE YELLOW; GLUCOSE, URINE NEGATIVE (NEGATIVE); KETONES,URINE TRACE mg/dL (NEGATIVE); LEUKOCYTE ESTERASE,URINE LARGE (NEGATIVE); NITRITE,URINE NEGATIVE (NEGATIVE); PROTEIN,URINE NEGATIVE (NEGATIVE); URINE SPECIFIC GRAVITY 1.016; UROBILINOGEN,URINE NEGATIVE mg/dL (<2.0)
[2018-04-30 07:30] LABS: ALANINE AMINOTRANSFERASE 15 U/L (9-52); ALKALINE PHOSPHATASE 332 U/L (38-126); ANION GAP 7 (5-19); ASPARTATE AMINO TRANSFERASE 15 U/L (14-36); BILIRUBIN,DIRECT 0.3 mg/dL (0.0-0.4); BILIRUBIN,TOTAL 0.4 mg/dL (0.2-1.3); BLOOD UREA NITROGEN 6 mg/dL (7-20); CALCIUM 8.5 mg/dL (8.4-10.2); CARBON DIOXIDE 22 mmol/L (22-30); CHLORIDE 107 mmol/L (98-107); GLUCOSE 102 mg/dL (75-110); POTASSIUM 3.5 mmol/L (3.6-5.0); SODIUM 135.7 mmol/L (137-145); TOTAL PROTEIN 5.8 g/dL (6.3-8.2)
[2018-04-30 07:36] LABS: URINE AMPHETAMINES SCREEN NEGATIVE; URINE BARBITURATES SCREEN NEGATIVE; URINE BENZODIAZEPINES SCREEN NEGATIVE; URINE COCAINE SCREEN NEGATIVE; URINE MARIJUANA (THC) SCREEN NEGATIVE; URINE METHADONE SCREEN NEGATIVE; URINE PHENCYCLIDINE SCREEN NEGATIVE
[2018-04-30] MEDS ORDERED: PHENYLEPHRINE HCL INJ/PF 10 MG/1 ML SDV ONE (12:10)
[2018-04-30] MEDS ORDERED: EPHEDRINE SULFATE INJ 50 MG/1 ML AMPULE ONE (12:10)
[2018-04-30] MEDS ORDERED: FENTANYL CITRATE INJ/PF 100 MCG/2 ML AMPUL ONE (12:10)
[2018-04-30] MEDS ORDERED: FENTANYL/BUPIVACAINE/NS/PF 300 MCG/150 ML RTUINJ EPI ONE (12:10)
[2018-04-30] MEDS ORDERED: BUPIVACAINE HCL 0.5 % INJ/PF 30 ML SDV ONE (12:11)
[2018-04-30] MEDS ORDERED: GLYCERIN/WITCH HAZEL LEAF 1 EACH MED..PAD TP PRN (15:22)
[2018-04-30] MEDS ORDERED: MEASLES,MUMPS&RUBELLA VACC/PF 0.5 ML VIAL SUBCUT PRN (15:22)
[2018-04-30] MEDS ORDERED: PROMETHAZINE HCL INJ 25 MG/1 ML VIAL IV PRN (15:22)
[2018-04-30] MEDS ORDERED: NA PHOS,M-B/NA PHOS,DI-BA (ADULT) 133 ML ENEMA PR PRN (15:22)
[2018-04-30] MEDS ORDERED: BENZOCAINE/MENTHOL AEROSOL SPRAY 56 ML TOP PRN (15:22)
[2018-04-30] MEDS ORDERED: PSEUDOEPHEDRINE HCL 30 MG TABLET PO PRN (15:22)
[2018-04-30] MEDS ORDERED: DIPHENHYDRAMINE HCL 25 MG CAPSULE PO PRN (15:22)
[2018-04-30] MEDS ORDERED: MISOPROSTOL 0.2 MG TABLET PR PRN (15:22)
[2018-04-30] MEDS ORDERED: PROMETHAZINE HCL 25 MG SUPP.RECT PR PRN (15:22)
[2018-04-30] MEDS ORDERED: MAGNESIUM HYDROXIDE SUSP 30 ML UDCUP PO PRN (15:22)
[2018-04-30] MEDS ORDERED: ACETAMINOPHEN 325 MG TABLET PO PRN (15:22)
[2018-04-30] MEDS ORDERED: DIBUCAINE 1% OINTMENT 28 GM TP PRN (15:22)
[2018-04-30] MEDS ORDERED: PROMETHAZINE HCL 25 MG TABLET PO PRN (15:22)
[2018-04-30] MEDS ORDERED: DIPH/PERTUSS(ACELL)/TETANUS VAC/PF 0.5 ML SYR (>=10YO) IM PRN (15:22)
[2018-04-30] MEDS ORDERED: IBUPROFEN 800 MG TABLET ONE (16:58)
--- NOTE | 2018-04-30 17:27 | Delivery Summary ---
Del Sum A-C Datetime Report Generated by CPN: 04/30/2018 17:27 DELIVERY PERSONNEL DELIVERY PERSONNEL: [id number] Delivery Doctor:: Blanca Ray CNM Nurse Airport Manager Certified:: Blanca Ray CNM Labor and Delivery Nurse:: Jasmyne Garcia RNcar body mechanic Nurse:: FRANKIE Boyle Logistics Clerk/ASSEMBLING MACHINE OPERATOR: Ailin Cuadra, DIRECTOR OF PROVIDER RELATIONS MATERNAL INFORMATION Delivery Anesthesia: Epidural Medications After Delivery: Pitocin Drip 20 Units/1000ml NSS; Cytotec 1000mcg Per Rectum/Vagina Meds After Delivery Comment: Pitocin 20 units in 1000 ml nss open for bolus Maternal Complications: None Provider Comments: pt with strong urge to push and pushed through small anterior lip that reduced after first push to become c/c/+2. Pt. continued pushing and went on to deliver a viable baby boy. Baby delivered thru tight nuchal and right compound hand with tight shoulders. Baby with strong respiratory effort and cry after tactile stimulation. Placed on maternal abdomen, cord allowed to stop pulsating, clamped x2 and cut by FOB (3vc noted). Large clots and moderate bleeding, placenta delivered spontaneously intact, fundus firm @ u-3. Moderate bleeding and clots out with fundal, cytotec given rectally for prophylaxis due to hx of pph and moderate bleeding after delivery. Vaginal and perineal inspection revealed no lacerations. Mother and baby skin to skin and bonding at this time. LABOR SUMMARY EDC: 04/26/2018 00:00 No. Babies in Womb: 1 Attempted: No Labor Anesthesia: Epidural LABOR INFORMATION Reason for Induction: Maternal Diabetes Onset of Labor: 04/30/2018 11:03 Complete Dilatation: 04/30/2018 14:37 Oxytocin: Induction Group B Beta Strep: Negative Steroids Given: None Reason Steroids Not Administered: Not Applicable MEMBRANES Membranes Rupture Method: Spontaneous Rupture of Membranes: 04/30/2018 12:41 Length of Rupture (hr): 2.08 Amniotic Fluid Color: Clear Amniotic Fluid Amount: Small Amniotic Fluid Odor: Normal STAGES OF LABOR Stage 1 hr: 3 Stage 1 min: 34 Stage 2 hr: 0 Stage 2 min: 9 Stage 3 hr: 0 Stage 3 min: 6 Total Time in Labor hr: 3 Total Time in Labor min: 49 VAGINAL DELIVERY Episiotomy: None Laceration #1: None Laceration Extension #1: N/A Other Laceration: n/a Laceration Repair: Not Applicable Sponge Count Correct: Yes Sharps Count Correct: Yes CSECTION DELIVERY Primary Indication: N/A Secondary Indication: N/A CSection Incidence: N/A Labor: N/A Elective: N/A CSection Incision: N/A BABY A INFORMATION Delivery Date/Time: 04/30/2018 14:46 Method of Delivery: Vaginal Born in Route : No : N/A Forceps: N/A Vacuum Extraction: N/A Shoulder Dystocia : No PRESENTATION/POSITION BABY A Presentation: Cephalic Cephalic Presentation: Vertex Vertex Position: Right Occipital Anterior Breech Presentation: N/A PLACENTA INFORMATION BABY A Placenta Delivery Time : 04/30/2018 14:52 Placenta Method of Delivery: Spontaneous Placenta Status: Delivered SCORES BABY A Heart Rate 1 min: >100 bpm Resp Effort 1 min: Good Cry Reflex Irritability 1 min: Cough or Sneeze or Pulls Away Muscle Tone 1 min: Active Motion Color 1 min: Blue/Pale Resuscitation Effort 1 min: Tactile Stimulation SCORE 1 MIN: 8 Heart Rate 5 min: >100 bpm Resp Effort 5 min: Good Cry Reflex Irritability 5 min: Cough or Sneeze or Pulls Away Muscle Tone 5 min: Active Motion Color 5 min: Body [place], Extremities Blue Resuscitation Effort 5 min: N/A SCORE 5 MIN: 9 Resuscitation Effort 10 min: N/A INFORMATION BABY A Gestational Age at Delivery: 40.4 Gestational Status: Full Term- 39- 40.6 Weeks Outcome : Liveborn Infant Condition : Stable Infant Sex: Male IDENTIFICATION BABY A Verification Date/Time: 04/30/2018 14:59 ID Band Number: [id number] Mother's Name Verified: Yes Infant RN Verifying : Zainab Pinto RNC Additional Verifying Personnel: Jasmyne Garcia RN WEIGHT/LENGTH BABY A Birthweight (gm): 3790 Infant Weight (lb): 8 Infant Weight (oz): 6 Infant Length (in): 21.50 Length (cm): 54.61 CORD INFORMATION BABY A No. Cord Vessels: 3 Nuchal Cord : Around Neck x1, Tight Cord Blood Taken: Yes-For Storage (Mom's Blood type +) Suction: None ASSESSMENT BABY A Infant Complications: None Physical Findings at Delivery: Bruising Infant Respirations: Appears Normal Skin to Skin: Yes Director Auto/ALS Called : No Care By: Gian Garcia RN Transferred To: Remains with Mother BABY B INFORMATION : N/A SIGNATURES Assignment: Arleth Rosado MD Signature: with User ID: [email or web address] : with User ID: [email or web address]
[2018-04-30] MEDS: DOCUSATE SODIUM 100 MG CAPSULE PO SCH (20:05)
[2018-04-30] MEDS: FERROUS SULFATE 325 MG TABLET PO SCH (20:05)
[2018-04-30] MEDS: IBUPROFEN 800 MG TABLET PO SCH (21:12)
[2018-04-30] MEDS: FAMOTIDINE 20 MG TABLET PO SCH (21:12)
[2018-04-30] MEDS: ACETAMINOPHEN WITH CODEINE #3 TABLET PO PRN (23:56)
[2018-05-01] MEDS: IBUPROFEN 800 MG TABLET PO SCH ×3 (05:42→22:08)
[2018-05-01 07:52] LABS: HEMATOCRIT 26.2 % (36.0-47.0); MEAN CORPUSCULAR HEMOGLOBIN 29.6 pg (27.0-33.4); MEAN CORPUSCULAR HGB CONC 34.3 g/dL (32.0-36.0); MEAN CORPUSCULAR VOLUME 86 fl (80-97); PLATELET COUNT 196 10^3/uL (150-450); RED BLOOD COUNT 3.03 10^6/uL (3.72-5.28); RED CELL DISTRIBUTION WIDTH 16.5 % (11.5-14.0); WHITE BLOOD COUNT 7.4 10^3/uL (4.0-10.5)
--- NOTE | 2018-05-01 09:35 | PDOC PROGRESS REPORT ---
Subjective-OB Progress Note for:: 05/01/18 Subjective: Pt doing well, no concerns. She reports light bleeding, reg diet and voiding well. Bonding with baby. Physical Exam (OB) Vital Signs: Temp Pulse Resp BP Pulse Ox 98.6 F 84 18 113/69 98 04/30/18 19:38 04/30/18 19:38 04/30/18 19:38 04/30/18 19:38 04/30/18 19:38 Intake & Output 04/30/18 05/01/18 05/02/18 06:59 06:59 06:59 Intake Total 1521 Balance 1521 Weight 93.5 kg - PIH/Pre-Eclampsia DTR's: 2 + Clonus: Negative Headache: Absent Epigastric Pain: No Visual Changes: No - Lochia Lochia Amount: Small 10-25 ml Lochia Color: Rubra/Red - Abdomen Description: Soft, Flat Hernia Present: No Fundal Description: Firm, Midline Fundal Height: u/u - u/2 Objective-Diagnostic Laboratory: 05/01/18 07:15 04/30/18 06:45 05/01/18 07:15 WBC 7.4 RBC 3.03 L Hgb 9.0 L Hct 26.2 L MCV 86 MCH 29.6 MCHC 34.3 RDW 16.5 H Plt Count 196 Assessment and Plan(PN) - Assessment and Plan (1) Delivery normal Is this a current diagnosis for this admission?: Yes - Time Spent with Patient Time with patient: Less than 15 minutes Medications reviewed and adjusted accordingly: Yes - Disposition Anticipated Discharge: Home Within: within 24 hours
[2018-05-01] MEDS: DOCUSATE SODIUM 100 MG CAPSULE PO SCH ×2 (10:52→17:48)
[2018-05-01] MEDS: FAMOTIDINE 20 MG TABLET PO SCH ×2 (10:53→22:08)
[2018-05-01] MEDS: SENNOSIDES/DOCUSATE 8.6-50 MG 1 EACH TABLET PO SCH (10:53)
[2018-05-01] MEDS: PRENATAL VITAMIN W DHA CAPSULE PO SCH (10:53)
[2018-05-01] MEDS: FERROUS SULFATE 325 MG TABLET PO SCH ×2 (10:53→17:48)
[2018-05-02] MEDS: ACETAMINOPHEN WITH CODEINE #3 TABLET PO PRN (01:33)
[2018-05-02] MEDS: IBUPROFEN 800 MG TABLET PO SCH (05:53)
--- NOTE | 2018-05-02 10:09 | PDOC PROGRESS REPORT ---
Subjective-OB Progress Note for:: 05/02/18 Subjective: Ready to go home. Physical Exam (OB) Vital Signs: Temp Pulse Resp BP Pulse Ox 98.1 F 61 15 112/64 99 05/02/18 08:02 05/02/18 08:02 05/02/18 08:02 05/02/18 08:02 05/02/18 08:02 Intake & Output 05/01/18 05/02/18 05/03/18 06:59 06:59 06:59 Intake Total 1521 300 Balance 1521 300 - PIH/Pre-Eclampsia DTR's: 2 + Clonus: Negative Headache: Absent Epigastric Pain: No Visual Changes: No - Lochia Lochia Amount: Scant < 10 ml Lochia Color: Rubra/Red - Abdomen Description: Soft, Flat Hernia Present: No Bowel Sounds: Normoactive Flatus Presence: Present Stool: Yes Fundal Description: Firm, Midline Fundal Height: u/u - u/2 Objective-Diagnostic Laboratory: 05/01/18 07:15 04/30/18 06:45 Assessment and Plan(PN) - Time Spent with Patient Medications reviewed and adjusted accordingly: Yes - Disposition Anticipated Discharge: Home
--- NOTE | 2018-05-02 10:14 | PDOC DISCHARGE SUMMARY ---
Final Diagnosis Discharge Date: 05/02/18 - Final Diagnosis (1) Is this a current diagnosis for this admission?: Yes (2) Delivery normal Is this a current diagnosis for this admission?: Yes (3) Anemia Is this a current diagnosis for this admission?: Yes Discharge Data - Discharge Medication Home Medications: Vit/Iron Fum/Folic AC [ Tablet] 1 each PO DAILY 03/23/18 Ferrous Sulfate [Iron] 325 mg PO DAILY 04/30/18 Ferrous Sulfate [Feosol 325 mg Tablet] 325 mg PO BID tablet 05/02/18 Gestational Age: 40.4 wks Reason(s) for Admission: Induction of Labor Procedures: Ultrasound Intrapartum Procedure(s): Spontaneous Vaginal Delivery - [place] Data Baby 1 Male at 1 minute: 8 at 5 minutes: 9 Weight: 3.799 kg Home with Mother: Yes Complications: No - Diagnosis Test Laboratory: Temp Pulse Resp BP Pulse Ox 98.1 F 61 15 112/64 99 05/02/18 08:02 05/02/18 08:02 05/02/18 08:02 05/02/18 08:02 05/02/18 08:02 04/30/18 04/30/18 05/01/18 05:54 06:45 07:15 RBC 3.59 L 3.03 L Hgb 10.7 L 9.0 L Hct 30.6 L 26.2 L Urine Opiates Screen NEGATIVE - Discharge information/Instructions Discharge Activity: Activity As Tolerated, Balance Activity w/Rest, Pelvic Rest , Slowly Increase Activity, No tub bath Discharge Diet: Regular Disposition: HOME, SELF-CARE Follow up with: [facility] in: 4, Weeks
[2018-05-02] MEDS: FAMOTIDINE 20 MG TABLET PO SCH (10:56)
[2018-05-02] MEDS: PRENATAL VITAMIN W DHA CAPSULE PO SCH (10:56)
[2018-05-02] MEDS: SENNOSIDES/DOCUSATE 8.6-50 MG 1 EACH TABLET PO SCH (10:56)
[2018-05-02] MEDS: FERROUS SULFATE 325 MG TABLET PO SCH (10:56)
[2018-05-02] MEDS: DOCUSATE SODIUM 100 MG CAPSULE PO SCH (10:56)
[2018-05-02 11:37] VITALS: BP 114/74
== END 2018-05-02 12:45 | disposition home or self-care (01) | DRG 775 ==
LOC: LR 05:43 → 2S 18:34
PROVIDERS: ADMIT Obstetrics & Gynecology; ATTEND Obstetrics & Gynecology
PROC: 10E0XZZ Delivery of Products of Conception, External Approach (ICD-10-PCS; principal; 2018-04-30)
PROC: 3E0234Z Introduction of Serum, Toxoid and Vaccine into Muscle, Percutaneous Approach (ICD-10-PCS; 2018-05-02)
DX: O48.0 Post-term pregnancy (principal); O24.420 Gestational diabetes mellitus in childbirth, diet controlled; O99.02 Anemia complicating childbirth; D64.9 Anemia, unspecified; O69.1XX0 Labor and delivery complicated by cord around neck, with compression, not applicable or unspecified; O99.62 Diseases of the digestive system complicating childbirth; K21.9 Gastro-esophageal reflux disease without esophagitis; Z3A.40 40 weeks gestation of pregnancy; Z37.0 Single live birth; Z23 Encounter for immunization
CPT/HCPCS: 36415; 80053; 80307; 81005; 85025; 85027; 86592; 86850; 86900; 86901; 90715; 94760; J2370; J2405; J2590; J3010; J3490

== ENCOUNTER 2019-01-15 09:14 | Emergency (ER) | payer MEDICAID ==
[2019-01-15] MEDS ORDERED: NORMAL SALINE 1000 ML 1,000 ML IV PRN (09:36)
[2019-01-15] MEDS ORDERED: ONDANSETRON HCL INJ/PF 4 MG/2 ML SDV IV ONE (09:36)
--- NOTE | 2019-01-15 09:38 | ER Document Report ---
ED Medical Screen (RME) - General Chief Complaint: Vomiting Stated Complaint: VOMITING Time Seen by Provider: 01/15/19 09:35 Primary Care Provider: IMER RICE MD [Primary Care Provider] - Follow up as needed Mode of Arrival: Ambulatory Information source: Patient Notes: 23-year-old female presents to ED for nausea and vomiting unable to keep fluids down. She states she is 11 weeks . She states she had similar symptoms with her second she is 3 para 2. She states she is not able to keep anything down at this time. She states she is used Zofran for her last with no trouble and has been taking at this time also. We will treat with fluids and Zofran obtain blood and urine and have seen by another provider. I have greeted and performed a rapid initial assessment of this patient. A comprehensive ED assessment and evaluation of the patient, analysis of test results and completion of medical decision making process will be conducted by an additional ED providers. Dictation of this chart was performed using voice recognition software; therefore, there may be some unintended grammatical errors. TRAVEL OUTSIDE OF THE [place] IN LAST 30 DAYS: No - Related Data Allergies/Adverse Reactions: amoxicillin [Amoxicillin] Allergy (Mild, Verified 01/15/19 09:15) Hives Penicillins Allergy (Mild, Verified 01/15/19 09:15) Hives Past Medical History - Past Medical History Cardiac Medical History: Denies: Hx Coronary Artery Disease, Hx Heart Attack, Hx Hypertension Pulmonary Medical History: Denies: Hx Asthma, Hx Bronchitis, Hx COPD, Hx Pneumonia Neurological Medical History: Denies: Hx Cerebrovascular Accident, Hx Seizures Renal/ Medical History: Denies: Hx Peritoneal Dialysis Musculoskeltal Medical History: Denies Hx Arthritis Psychiatric Medical History: Reports: Hx Attention Deficit Hyperactivity Disorder Past Surgical History: Reports: Hx Cholecystectomy - Immunizations Immunizations up to date: Yes Hx Diphtheria, Pertussis, Tetanus Vaccination: Yes Physical Exam - Vital signs Vitals: Temp Pulse Resp BP Pulse Ox 98.2 F 107 H 14 138/92 H 98 01/15/19 09:31 01/15/19 09:31 01/15/19 09:31 01/15/19 09:31 01/15/19 09:31 Course - Vital Signs Vital signs: Temp Pulse Resp BP Pulse Ox 98.2 F 107 H 14 138/92 H 98 01/15/19 09:31 01/15/19 09:31 01/15/19 09:31 01/15/19 09:31 01/15/19 09:31 Doctor's Discharge - Discharge Referrals: IMER RICE MD [Primary Care Provider] - Follow up as needed
--- NOTE | 2019-01-15 10:03 | ER Document Report ---
ED General - General Chief Complaint: Vomiting Stated Complaint: VOMITING Time Seen by Provider: 01/15/19 09:35 Primary Care Provider: IMER RICE MD [ACTIVE STAFF] - Follow up in 3-5 days Mode of Arrival: Ambulatory TRAVEL OUTSIDE OF THE [place] IN LAST 30 DAYS: No - HPI Notes: Patient is a 23-year-old female G3, P2 at 8 weeks gestational age that presents to the emergency department for chief complaint of vomiting. Patient reports history of hyperemesis gravidarum with previous which was delivered 8 months ago. She has a history of 2 living children. Patient states she began vomiting around 9 PM yesterday evening and has thrown up all night long. She did take Zofran which she was on the entire time with her last . She took a tablet around 9 PM, and ODT around 4 AM and another 4 mg tablet around 9 AM. Patient states she vomited immediately after taking all of the doses of medication. She states yesterday around noon prior to this beginning she was feeling constipated and took one Dulcolax. She states she has had one normal bowel movement yesterday evening and denies diarrhea. She denies any lower abdominal pain, vaginal bleeding, fevers and vaginal discharge. Patient states she has had an ultrasound performed during this which showed single intrauterine gestation with a due date of 08/02/2019. She is scheduled for her first LIFE SUPPORT TECHNICIAN follow-up with Dr. Brush this week. Past Medical History: Negative Past Surgical History: Negative Social History: Denies tobacco and alcohol use Family History: Reviewed and noncontributory for presenting illness Allergies: Reviewed, see documented allergy list. REVIEW OF SYSTEMS: CONSTITUTIONAL : No fever No chills No diaphoresis No recent illness EENT: No vision changes No congestion No sore throat CARDIOVASCULAR: No chest pain No palpitations RESPIRATORY: No shortness of breath No cough No difficulty breathing GASTROINTESTINAL: No abdominal pain nausea vomiting No diarrhea GENITOURINARY: No dysuria No hematuria No difficulty urinating MUSCULOSKELETAL: No back pain No leg pain No arm pain SKIN: No rashes No lesions LYMPHATIC: No swollen, enlarged glands. NEUROLOGICAL: No lightheadedness No headache No weakness No paresthesias PSYCHIATRIC: No anxiety No depression PHYSICAL EXAMINATION: Vital signs reviewed, nursing noted reviewed. GENERAL: Well-appearing, well-nourished and in no acute distress. HEAD: Atraumatic, normocephalic. EYES: Eyes appear normal, extraocular movements intact, sclera anicteric, conjunctiva are normal. ENT: nares patent, oropharynx clear without exudates. Dry mucous membranes. NECK: Normal range of motion, supple without lymphadenopathy LUNGS: Breath sounds clear to auscultation bilaterally and equal. No wheezes rales or rhonchi. HEART: Tachycardic rate and regular rhythm without murmurs ABDOMEN: Soft, nontender, normoactive bowel sounds. No rebound, guarding, or rigidity. No masses appreciated. EXTREMITIES: Nontender, good range of motion, no pitting or edema. NEUROLOGICAL: No focal neurological deficits. Moves all extremities spontaneously Motor and sensory grossly intact on exam. PSYCH: Normal mood, normal affect. SKIN: Warm, Dry, normal turgor, no rashes or lesions noted on exposed skin - Related Data Allergies/Adverse Reactions: amoxicillin Allergy (Verified 01/15/19 09:57) Penicillins Allergy (Verified 01/15/19 09:57) Past Medical History - General Information source: Patient - Social History Smoking Status: Unknown if Ever Smoked Chew tobacco use (# tins/day): No Frequency of alcohol use: None Drug Abuse: None Family History: None Patient has suicidal ideation: No Patient has homicidal ideation: No - Past Medical History Cardiac Medical History: Denies: Hx Coronary Artery Disease, Hx Heart Attack, Hx Hypertension Pulmonary Medical History: Denies: Hx Asthma, Hx Bronchitis, Hx COPD, Hx Pneumonia Neurological Medical History: Denies: Hx Cerebrovascular Accident, Hx Seizures Renal/ Medical History: Denies: Hx Peritoneal Dialysis Musculoskeletal Medical History: Denies Hx Arthritis Psychiatric Medical History: Reports: Hx Attention Deficit Hyperactivity Disorder Past Surgical History: Reports: Hx Cholecystectomy - Immunizations Immunizations up to date: Yes Hx Diphtheria, Pertussis, Tetanus Vaccination: Yes Physical Exam - Vital signs Vitals: Temp Pulse Resp BP Pulse Ox 98.2 F 107 H 14 138/92 H 98 01/15/19 09:31 01/15/19 09:31 01/15/19 09:31 01/15/19 09:31 01/15/19 09:31 Course - Re-evaluation Re-evalutation: 01/15/19 10:06 Vitals reviewed. Nursing notes reviewed. Patient has dry mucous membranes and is mildly tachycardic consistent with acute dehydration from vomiting. She is otherwise afebrile and well-appearing. She has no abdominal pain, vaginal discharge or vaginal bleeding. Patient has confirmed intrauterine with ultrasound. She will be given IV fluids and was ordered antiemetics in triage which she received prior to my evaluation. 01/15/19 11:59 Patient has not had emesis while in the emergency room. Her work-up is unremarkable today. Laboratory 01/15/19 01/15/19 01/15/19 10:01 10:01 10:01 WBC 8.3 RBC 4.39 Hgb 13.0 Hct 37.3 MCV 85 MCH 29.5 MCHC 34.8 RDW 13.3 Plt Count 252 Seg Neutrophils % 87.6 H Lymphocytes % 9.5 L Monocytes % 2.7 L Eosinophils % 0.0 Basophils % 0.2 Absolute Neutrophils 7.2 Absolute Lymphocytes 0.8 Absolute Monocytes 0.2 Absolute Eosinophils 0.0 Absolute Basophils 0.0 Sodium 138.7 Potassium 3.5 L Chloride 103 Carbon Dioxide 22 Anion Gap 14 BUN 5 L Creatinine 0.29 L Est GFR ( Amer) > 60 Est GFR (Non-Af Amer) > 60 Glucose 146 H Calcium 9.9 Total Bilirubin 0.6 Direct Bilirubin 0.2 Neonat Total Bilirubin Not Reportable Neonat Direct Bilirubin Not Reportable Neonat Indirect Bili Not Reportable AST 11 L ALT 23 Alkaline Phosphatase 51 Total Protein 7.7 Albumin 4.7 Urine Color YELLOW Urine Appearance CLOUDY Urine pH 5.0 Ur Specific [place] 1.032 Urine Protein 100 H Urine Glucose (UA) 50 H Urine Ketones 80 H Urine Blood NEGATIVE Urine Nitrite NEGATIVE Urine Bilirubin NEGATIVE Urine Urobilinogen NEGATIVE Ur Leukocyte Esterase NEGATIVE Urine WBC (Auto) 3 Urine RBC (Auto) 4 Squamous Epi Cells Auto 3 Urine Mucus (Auto) MANY Urine Ascorbic Acid NEGATIVE She has moist mucous membranes on reevaluation and is feeling better. She has tolerated oral intake. Patient discharged home with close LIFE SUPPORT TECHNICIAN follow-up as an outpatient. - Vital Signs Vital signs: Temp Pulse Resp BP Pulse Ox 98.2 F 92 18 103/65 100 01/15/19 09:31 01/15/19 11:21 01/15/19 11:21 01/15/19 11:21 01/15/19 11:21 - Laboratory Result Diagrams: 01/15/19 10:01 01/15/19 10:01 Laboratory results interpreted by me: 01/15/19 01/15/19 01/15/19 10:01 10:01 10:01 Seg Neutrophils % 87.6 H Lymphocytes % 9.5 L Monocytes % 2.7 L Potassium 3.5 L BUN 5 L Creatinine 0.29 L Glucose 146 H AST 11 L Urine Protein 100 H Urine Glucose (UA) 50 H Urine Ketones 80 H Discharge - Discharge Clinical Impression: Vomiting affecting Condition: Stable Disposition: HOME, SELF-CARE Instructions: ([facility]), Vomiting ([facility]) Additional Instructions: Please return to the emergency department if you have any worsening, or concern of your symptoms. Please return to the emergency department if you develop chest pain, difficulty breathing, severe abdominal pain, or ongoing vomiting. Please follow-up with your primary care physician in 2-3 days and any other recommended physicians. If prescribed, take all medications as directed. If you have any questions or concerns do not hesitate to return the emergency department for evaluation. Keep your appointment with LIFE SUPPORT TECHNICIAN for follow-up Referrals: IMER RICE MD [ACTIVE STAFF] - Follow up in 3-5 days
[2019-01-15 10:34] LABS: ABSOLUTE LYMPHOCYTES (AUTO) 0.8 10^3/uL (0.5-4.7); ABSOLUTE MONOCYTES (AUTO) 0.2 10^3/uL (0.1-1.4); ABSOLUTE NEUT (AUTO) 7.2 10^3/uL (1.7-8.2); BASOPHILS % (AUTO) 0.2 % (0-2); HEMATOCRIT 37.3 % (36.0-47.0); LYMPHOCYTES % (AUTO) 9.5 % (13-45); MEAN CORPUSCULAR HEMOGLOBIN 29.5 pg (27.0-33.4); MEAN CORPUSCULAR HGB CONC 34.8 g/dL (32.0-36.0); MEAN CORPUSCULAR VOLUME 85 fl (80-97); MONOCYTES % (AUTO) 2.7 % (3-13); PLATELET COUNT 252 10^3/uL (150-450); RED BLOOD COUNT 4.39 10^6/uL (3.72-5.28); RED CELL DISTRIBUTION WIDTH 13.3 % (11.5-14.0); SEGMENTED NEUTROPHILS % (AUTO) 87.6 % (42-78); TOTAL CELLS COUNTED % (AUTO) 100 %; WHITE BLOOD COUNT 8.3 10^3/uL (4.0-10.5)
[2019-01-15 10:41] LABS: APPEARANCE,URINE CLOUDY; BILIRUBIN,URINE NEGATIVE (NEGATIVE); COLOR,URINE YELLOW; GLUCOSE, URINE 50 mg/dL (NEGATIVE); KETONES,URINE 80 mg/dL (NEGATIVE); LEUKOCYTE ESTERASE,URINE NEGATIVE (NEGATIVE); NITRITE,URINE NEGATIVE (NEGATIVE); PROTEIN,URINE 100 mg/dL (NEGATIVE); URINE SPECIFIC GRAVITY 1.032; UROBILINOGEN,URINE NEGATIVE mg/dL (<2.0)
[2019-01-15 10:53] LABS: ALANINE AMINOTRANSFERASE 23 U/L (9-52); ALBUMIN 4.7 g/dL (3.5-5.0); ALKALINE PHOSPHATASE 51 U/L (38-126); ANION GAP 14 (5-19); BILIRUBIN,DIRECT 0.2 mg/dL (0.0-0.4); BILIRUBIN,TOTAL 0.6 mg/dL (0.2-1.3); BLOOD UREA NITROGEN 5 mg/dL (7-20); CARBON DIOXIDE 22 mmol/L (22-30); CHLORIDE 103 mmol/L (98-107); GLUCOSE 146 mg/dL (75-110); POTASSIUM 3.5 mmol/L (3.6-5.0); SODIUM 138.7 mmol/L (137-145); TOTAL PROTEIN 7.7 g/dL (6.3-8.2)
[2019-01-15 10:56] LABS: ASPARTATE AMINO TRANSFERASE 11 U/L (14-36); CALCIUM 9.9 mg/dL (8.4-10.2)
[2019-01-15 11:23] VITALS: BP 103/65
== END 2019-01-15 11:45 | disposition home or self-care (01) ==
LOC: ER 09:14
DX: O21.9 Vomiting of pregnancy, unspecified (principal); O26.891 Other specified pregnancy related conditions, first trimester; R00.0 Tachycardia, unspecified; Z3A.08 8 weeks gestation of pregnancy; Z88.0 Allergy status to penicillin
CPT/HCPCS: 99283; 96361; 96374; 36415; 85025; 80053; 81001; J2405; J7030

== ENCOUNTER 2019-05-01 14:36 | Outpatient (CLI) | payer MEDICAID ==
[2019-05-01 15:53] LABS: EPITHELIALS (WET MOUNT) 3+ EPITHELIALS SEEN; RBCS (WET MOUNT) NO RBCS SEEN; T.VAGINALIS (WET MOUNT) NO TRICHOMONAS SEEN; WBCS (WET MOUNT) RARE WBCS SEEN; YEAST (WET MOUNT) NO YEAST SEEN
[2019-05-01 16:08] LABS: APPEARANCE,URINE SLIGHTLY-CLOUDY; BILIRUBIN,URINE NEGATIVE (NEGATIVE); COLOR,URINE YELLOW; GLUCOSE, URINE NEGATIVE (NEGATIVE); KETONES,URINE NEGATIVE (NEGATIVE); LEUKOCYTE ESTERASE,URINE NEGATIVE (NEGATIVE); NITRITE,URINE NEGATIVE (NEGATIVE); PROTEIN,URINE NEGATIVE (NEGATIVE); URINE SPECIFIC GRAVITY 1.016; UROBILINOGEN,URINE NEGATIVE mg/dL (<2.0)
[2019-05-01 16:20] LABS: URINE AMPHETAMINES SCREEN NEGATIVE; URINE BARBITURATES SCREEN NEGATIVE; URINE BENZODIAZEPINES SCREEN NEGATIVE; URINE COCAINE SCREEN NEGATIVE; URINE MARIJUANA (THC) SCREEN NEGATIVE; URINE METHADONE SCREEN NEGATIVE; URINE PHENCYCLIDINE SCREEN NEGATIVE
--- NOTE | 2019-05-01 16:40 | RADIOLOGY REPORT (SQ) ---
EXAM DESCRIPTION: U/S OB LIMITED COMPLETED DATE/TIME: 05/01/2019 3:30 pm REASON FOR STUDY: unable to get heart tones check baby wellbeing COMPARISON: 11/25/2017 TECHNIQUE: Limited transabdominal grayscale ultrasound for evaluation of specific requested obstetri allen parameters. LIMITATIONS: None. FINDINGS: No cardiac activity is identified at real-time scanning, M-mode Doppler, or color fl ow imaging. This report was called to Dr Ferrera, 1530 hours 05/01/2019. CERVICAL LENGTH: 3.5 cm Closed. MITZI: Total MITZI 6.9 cm. PRESENTATION: Breech. PLACENTA: Fundal grade 1 ANATOMY: Not assessed OTHER: No other significant findings. IMPRESSION: demise Trimester of : Third trimester - 28 weeks to delivery. TECHNICAL DOCUMENTATION: JOB ID: [id number] [employer]- All Rights Reserved Reading location - IP/workstation name: [email or web address]
[2019-05-01 17:52] LABS: CHLAM PCR NOT DETECTED (NOT DETECT)
== END 2019-05-01 16:38 | disposition home or self-care (01) ==
LOC: LC 14:36
PROVIDERS: ATTEND Student in an Organized Health Care Education/Training Program
PROC: 4A1HXCZ Monitoring of Products of Conception, Cardiac Rate, External Approach (ICD-10-PCS; principal; 2019-05-01)
DX: O36.4XX0 Maternal care for intrauterine death, not applicable or unspecified (principal); Z3A.27 27 weeks gestation of pregnancy
CPT/HCPCS: 59899; 87210; 81001; 80307; 87491; 87591; 76815; Q0114; 59025

== ENCOUNTER 2019-05-02 09:56 | Inpatient (IN) | payer MEDICAID ==
[2019-05-02 10:46] LABS: APPEARANCE,URINE SLIGHTLY-CLOUDY; BILIRUBIN,URINE NEGATIVE (NEGATIVE); COLOR,URINE YELLOW; GLUCOSE, URINE NEGATIVE (NEGATIVE); KETONES,URINE NEGATIVE (NEGATIVE); LEUKOCYTE ESTERASE,URINE NEGATIVE (NEGATIVE); NITRITE,URINE NEGATIVE (NEGATIVE); PROTEIN,URINE NEGATIVE (NEGATIVE); URINE SPECIFIC GRAVITY 1.023; UROBILINOGEN,URINE NEGATIVE mg/dL (<2.0)
[2019-05-02 11:10] LABS: URINE AMPHETAMINES SCREEN NEGATIVE; URINE BARBITURATES SCREEN NEGATIVE; URINE BENZODIAZEPINES SCREEN NEGATIVE; URINE COCAINE SCREEN NEGATIVE; URINE MARIJUANA (THC) SCREEN NEGATIVE; URINE METHADONE SCREEN NEGATIVE; URINE PHENCYCLIDINE SCREEN NEGATIVE
[2019-05-02] MEDS ORDERED: OXYTOCIN/NORMAL SALINE 20 UNIT/1,000 ML RTUINJ IV PRN (12:51)
[2019-05-02] MEDS: MISOPROSTOL 0.2 MG TABLET PO SCH ×2 (13:33→17:38)
--- NOTE | 2019-05-02 14:59 | Admission Physical ---
Datetime Report Generated by CPN: 05/02/2019 14:58 CURRENT ADMISSION Chief Complaint: Other Chief Complaint Other: Scheduled IOL for 26 wks EGA demise in utero Indication for Induction: Demise ALLERGIES Medication Allergies: Yes Medication Allergies: Penicillins (05/02/2019); amoxicillin (05/02/2019) Latex: Latex Allergies Food Allergies: NONE Environmental Allergies: NONE OBSTETRICAL HISTORY EDC: 08/02/2019 00:00 : 3 Para: 2 Term: 2 : 0 SAB: 0 IAB: 0 Ectopic: 0 Livin Cesareans: 0 VBACs: 0 Multiple Births: 0 Gestational Diabetes: Yes Rh Sensitization: No Incompetent Cervix: No [place]: No Infertility: No ART Treatment: No Uterine Anomaly: No IUGR: No Hx Previous C/S: No Macrosomia: No Hx Loss/Stillborn: No PIH: No Hx : No Placenta Previa/Abruption: No Depression/PP Depression: No PTL/PROM: No Post Hemorrhage: Yes Obstetrical History Comments: G1- PPH G2- GDM, PPH G3- CURRENT- IUFD SEE RECORDS Alcohol: No Cocaine: No Other Illicit Drugs: No Cigarettes: Never Smoker. [id number] MEDICAL HISTORY Diabetes: Yes Diabetes Type: Gestational Diabetes Blood Transfusion: No Pulmonary Disease (Asthma, TB): No Breast Disease: No Hypertension: No Corporate Giving Manager Surgery: No Heart Disease: No Hosp/Surgery: Yes Autoimmune Disorder: No Anesthetic Complications: No Kidney Disease: No Abnormal Pap Smear: No Neuro/Epilepsy: No Psychiatric Disorders: Yes Other Medical Diseases: No Hepatitis/Liver Disease: No Significant Family History: No Varicosities/Phlebitis: No Trauma/Violence : No Thyroid Dysfunction: No Medical History Comments: GDM ANXIETY CHILDBIRTH, LAP MATTIE, VIRAL MENINGITIS PHYSICAL EXAM General: Normal HEENT: Normal Neurologic: Normal Thyroid: Normal Heart: Normal Lungs: Normal Breast: Normal Back: Normal Abdomen: Normal Genitourinary Exam: Normal Extremities: Normal DTRs: Normal Pelvic Type: Adequate Vital Signs: Reviewed VAGINAL EXAM Dilatation: 0 Effacement: 0 Station: -3 MEMBRANES Membranes: Intact FETUS A EGA: 26.6 Presentation: Breech Admit Comment: admitted for scheduled IOL at 26.6 wks EGA for IUFD. Diagnosed two days ago after No movement for 24 hours and US confirmed demise. Reports no hx of rashes or illness this . No hx DM, HTN, thyroid disease, clotting disorders, autoimmune disease. She did slip and fall on her side the end of March or beginning of April. She landed on her side on a stuffed animal. She did kick counts afterwards and were normal. Compliant with PNC at [facility]. No hx of drug, tobacco or alcohol use. -VSS -Out of bed as desired -IVFs, can eat now then sips/chips -Exam negative. Not dilated. Still thick. No VB or discharge -Discussed induction process. Will start with cytotec buccally Q 4 hours until cervix is more favorable. Then will begin Pitocin IV. -Pain management as needed with PRNs. PLANS FOR LABOR AND DELIVERY Labor and Delivery: None Pain Management: None INFORMED CONSENT Signature: with User ID: [place] : with User ID: [email or web address]
[2019-05-02] MEDS ORDERED: MISOPROSTOL 0.2 MG TABLET ONE ×3 (17:24→22:28)
[2019-05-02] MEDS ORDERED: OXYTOCIN/NORMAL SALINE 20 UNIT/1,000 ML RTUINJ ONE (21:33)
[2019-05-02] MEDS ORDERED: LIDOCAINE 1% INJ-PF (10 MG/ML) 30 ML SDV ONE (21:33)
[2019-05-02] MEDS ORDERED: OXYTOCIN 10 UNIT/ML VIAL ONE (21:33)
[2019-05-02] MEDS ORDERED: MISOPROSTOL 0.2 MG TABLET PO ONE (21:46)
[2019-05-03] MEDS ORDERED: MISOPROSTOL 0.2 MG TABLET ONE ×4 (01:36→17:27)
[2019-05-03] MEDS ORDERED: MISOPROSTOL 0.2 MG TABLET PO ONE ×2 (01:38→05:43)
[2019-05-03] MEDS ORDERED: ONDANSETRON 4 MG TAB.RAPDIS ONE (09:35)
[2019-05-03] MEDS: MISOPROSTOL 0.2 MG TABLET PV SCH ×2 (09:38→15:31)
[2019-05-03] MEDS ORDERED: ONDANSETRON 4 MG TAB.RAPDIS PO ONE (09:40)
[2019-05-03] MEDS: MISOPROSTOL 0.2 MG TABLET ONE ×2 (10:02→17:00)
[2019-05-03] MEDS: MISOPROSTOL 0.1 MG TABLET PO SCH ×2 (10:03→10:04)
[2019-05-03] MEDS ORDERED: PROMETHAZINE HCL INJ 25 MG/1 ML VIAL IV ONE (10:13)
[2019-05-03] MEDS ORDERED: NALBUPHINE HCL INJ 10 MG/1 ML AMPULE INJ ONE (10:15)
[2019-05-03] MEDS ORDERED: PROMETHAZINE HCL INJ 25 MG/1 ML VIAL ONE (10:16)
[2019-05-03] MEDS ORDERED: NALBUPHINE HCL INJ 10 MG/1 ML AMPULE ONE (10:16)
[2019-05-03] MEDS ORDERED: LOPERAMIDE HCL 2 MG CAPSULE ONE ×2 (10:19→13:22)
[2019-05-03] MEDS ORDERED: ACETAMINOPHEN 325 MG TABLET ONE ×2 (10:19→20:22)
[2019-05-03] MEDS ORDERED: LOPERAMIDE HCL 2 MG CAPSULE PO ONE ×2 (10:22→13:21)
[2019-05-03] MEDS: RINGERS SOLUTION,LACTATED 1,000 ML IV PRN ×2 (10:35→13:51)
[2019-05-03] MEDS: ACETAMINOPHEN 325 MG TABLET PO PRN (11:05)
[2019-05-03] MEDS: OXYTOCIN/NORMAL SALINE 20 UNIT/1,000 ML RTUINJ IV PRN ×2 (11:10→12:27)
[2019-05-03] MEDS ORDERED: PROMETHAZINE HCL 25 MG SUPP.RECT PR PRN (11:32)
[2019-05-03] MEDS ORDERED: OXYTOCIN/NORMAL SALINE 20 UNIT/1,000 ML RTUINJ IV PRN ×2 (11:32→17:48)
[2019-05-03] MEDS ORDERED: PROMETHAZINE HCL 25 MG TABLET PO PRN (11:32)
[2019-05-03] MEDS ORDERED: DIBUCAINE 1% OINTMENT 56 GM TP PRN (11:32)
[2019-05-03] MEDS ORDERED: NA PHOS,M-B/NA PHOS,DI-BA (ADULT) 133 ML ENEMA PR PRN (11:32)
[2019-05-03] MEDS ORDERED: PSEUDOEPHEDRINE HCL 30 MG TABLET PO PRN (11:32)
[2019-05-03] MEDS ORDERED: ACETAMINOPHEN 650 MG SUPP.RECT PR PRN (11:32)
[2019-05-03] MEDS ORDERED: MAGNESIUM HYDROXIDE SUSP 30 ML UDCUP PO PRN (11:32)
[2019-05-03] MEDS ORDERED: BENZOCAINE/MENTHOL AEROSOL SPRAY 56 ML TOP PRN (11:32)
[2019-05-03] MEDS ORDERED: ZOLPIDEM TARTRATE 5 MG TABLET PO PRN (11:32)
[2019-05-03] MEDS ORDERED: GLYCERIN/WITCH HAZEL LEAF 1 EACH MED..WIPE TP PRN (11:32)
[2019-05-03] MEDS ORDERED: ACETAMINOPHEN WITH CODEINE #3 TABLET PO PRN ×2 (11:32)
[2019-05-03] MEDS ORDERED: MEASLES,MUMPS&RUBELLA VACC/PF 0.5 ML VIAL SUBCUT PRN (11:32)
[2019-05-03] MEDS ORDERED: DIPH/PERTUSS(ACELL)/TETANUS VAC/PF 0.5 ML SYR (>=10YO) IM PRN (11:32)
[2019-05-03] MEDS ORDERED: PROMETHAZINE HCL INJ 25 MG/1 ML VIAL IV PRN ×3 (11:32→19:09)
[2019-05-03] MEDS ORDERED: DIPHENHYDRAMINE HCL 25 MG CAPSULE PO PRN (11:32)
[2019-05-03] MEDS ORDERED: OXYTOCIN/NORMAL SALINE 0 UNIT/0 ML RTUINJ ONE (12:22)
[2019-05-03] MEDS ORDERED: CARBOPROST TROMETHAMINE INJ 250 MCG/1 ML AMPULE IM ONE (12:22)
[2019-05-03] MEDS ORDERED: MISOPROSTOL 0.2 MG TABLET PR ONE (12:22)
[2019-05-03] MEDS ORDERED: METHYLERGONOVINE MALEATE INJ/PF 0.2 MG/1 ML AMPULE ONE ×2 (12:23→17:14)
[2019-05-03] MEDS ORDERED: CARBOPROST TROMETHAMINE INJ 250 MCG/1 ML AMPULE ONE (12:24)
[2019-05-03] MEDS ORDERED: OXYTOCIN/NORMAL SALINE 20 UNIT/1,000 ML RTUINJ ONE ×2 (12:25→17:58)
[2019-05-03] MEDS ORDERED: ONDANSETRON HCL INJ/PF 4 MG/2 ML SDV ONE (12:38)
[2019-05-03] MEDS ORDERED: SUCCINYLCHOLINE CHLORIDE INJ 200 MG/10 ML VIAL ONE (12:38)
[2019-05-03 13:15] LABS: ABSOLUTE LYMPHOCYTES (AUTO) 0.8 10^3/uL (0.5-4.7); ABSOLUTE MONOCYTES (AUTO) 0.7 10^3/uL (0.1-1.4); ABSOLUTE NEUT (AUTO) 11.6 10^3/uL (1.7-8.2); BASOPHILS % (AUTO) 0.3 % (0-2); HEMATOCRIT 27.6 % (36.0-47.0); HEMOGLOBIN 9.4 g/dL (12.0-15.5); LYMPHOCYTES % (AUTO) 6.3 % (13-45); MEAN CORPUSCULAR HEMOGLOBIN 29.3 pg (27.0-33.4); MEAN CORPUSCULAR HGB CONC 33.8 g/dL (32.0-36.0); MEAN CORPUSCULAR VOLUME 87 fl (80-97); MONOCYTES % (AUTO) 5.3 % (3-13); PLATELET COUNT 166 10^3/uL (150-450); RED BLOOD COUNT 3.19 10^6/uL (3.72-5.28); RED CELL DISTRIBUTION WIDTH 12.7 % (11.5-14.0); SEGMENTED NEUTROPHILS % (AUTO) 88.1 % (42-78); TOTAL CELLS COUNTED % (AUTO) 100 %; WHITE BLOOD COUNT 13.2 10^3/uL (4.0-10.5)
--- NOTE | 2019-05-03 14:54 | RADIOLOGY REPORT (SQ) ---
EXAM DESCRIPTION: U/S NON OB PEL W/DOPPLER COMPLETED DATE/TIME: 05/03/2019 2:29 pm REASON FOR STUDY: delivered demise @1042 today. PP bleeding COMPARISON: None. TECHNIQUE: Dynamic and static grayscale images acquired of the pelvis via transabdominal approach an d recorded on PACS. Additional selected color Doppler and spectral images recorded. LIMITATIONS: None. FINDINGS: UTERUS: Contour normal. No mass. ENDOMETRIAL STRIPE: Marked thickening of the endometrium inferiorly. Suspicious for were trying prod ucts. CERVIX: Material present within the cervix. RIGHT OVARY AND DOPPLER: Normal size. No worrisome masses. Normal arterial vascular flow without evid ence for torsion. LEFT OVARY AND DOPPLER: Normal size. No worrisome masses. Normal arterial vascular flow without evide nce for torsion. FREE FLUID: None noted. OTHER: No other significant finding. MEASUREMENTS: UTERUS: 16.5 cm. . ENDOMETRIAL STRIPE: 1.5 cm superior RIGHT OVARY: 5.5 cm LEFT OVARY: 4.7 cm IMPRESSION: Extensive heterogeneous material filling the lower uterine segment and cervix. Suspicio us for retained products. TECHNICAL DOCUMENTATION: JOB ID: [id number] [employer]- All Rights Reserved Rev-12/21 Reading location - IP/workstation name: [email or web address]
[2019-05-03] MEDS: IBUPROFEN 800 MG TABLET PO SCH (15:32)
[2019-05-03] MEDS ORDERED: KETAMINE HCL INJ 500 MG/10 ML VIAL ONE (16:06)
[2019-05-03] MEDS ORDERED: MIDAZOLAM 2 MG/2 ML INJ ONE (16:06)
[2019-05-03] MEDS ORDERED: PROPOFOL INJ 200 MG/20 ML VIAL IV ONE (16:06)
[2019-05-03] MEDS ORDERED: FENTANYL CITRATE INJ/PF 100 MCG/2 ML AMPUL ONE (16:06)
[2019-05-03] MEDS ORDERED: METOCLOPRAMIDE HCL INJ/PF 10 MG/2 ML SDV ONE (16:42)
[2019-05-03] MEDS ORDERED: FAMOTIDINE INJ/PF 20 MG/2 ML SDV IV ONE (16:42)
[2019-05-03] MEDS ORDERED: CEFAZOLIN INJ 1 GM VIAL ONE (17:00)
[2019-05-03] MEDS ORDERED: OXYTOCIN 10 UNIT/ML VIAL ONE (17:14)
[2019-05-03] MEDS ORDERED: NORMAL SALINE 250 ML IV PRN ×2 (17:36→17:38)
--- NOTE | 2019-05-03 17:47 | Operative Report ---
Operative Report DATE OF SURGERY: 05/03/19 PREOPERATIVE DIAGNOSIS: hemorrhage with possible retained products. POSTOPERATIVE DIAGNOSIS: Same. It appears that the majority of tissue in the low uterine segment was blood clot. With curettage there was a small return of tissue. OPERATION: D&C. A gentle sharp curettage was performed as well as a suction curettage with a size 12 curette. We also attempted to place a Bakri balloon however it would not retain itself in the uterus. SURGEON: KIMBERLY BARBA ANESTHESIA: GA TISSUE REMOVED OR ALTERED: Uterine contents COMPLICATIONS: hemorrhage ESTIMATED BLOOD LOSS: An additional 500 cc of blood loss INTRAOPERATIVE FINDINGS: Open cervix with hemorrhage PROCEDURE: Patient was taken to the OR and placed in supine position. General anesthesia was induced. She is placed in a dorsolithotomy position using Luis Enrique stirrups. Her perineum vagina were prepared and draped in sterile fashion. A Short had been previously placed. With the prep there was a large blood clot which fell out of the vagina. Next a sterile speculum was placed in the anterior lip of the cervix was grasped with a ring forcep. A gentle sharp curettage with a large banjo curette was performed with a small return of tissue. Also used a size 12 suction curette to evacuate the uterine contents. Initially after evacuation there was no further bleeding however several minutes later she began bleeding very heavily once again. Once again a gentle curettage was performed. There was no further return of tissue. At this point we decided to transfuse as well as once again use Pitocin and Cytotec and Methergine dose. I attempted to place a Bakri balloon. However her cervix and lower uterine segment were very wide open and the uterus would just push the balloon out every time we inflated it with water. At this point her bleeding had slowed quite a bit. It was obvious we could not place the back of the balloon. At this point we stopped the D&C. We took her to recovery room. She is stable at this time and we will proceed with a transfusion and Pitocin as well as Methergine series. With further heavy bleeding we may need to consider hysterectomy.
[2019-05-03] MEDS: DOCUSATE SODIUM 100 MG CAPSULE PO SCH (18:00)
[2019-05-03 18:09] LABS: ABSOLUTE LYMPHOCYTES (AUTO) 1.7 10^3/uL (0.5-4.7); ABSOLUTE MONOCYTES (AUTO) 0.6 10^3/uL (0.1-1.4); BASOPHILS % (AUTO) 0.2 % (0-2); HEMOGLOBIN 8.4 g/dL (12.0-15.5); MEAN CORPUSCULAR HEMOGLOBIN 29.5 pg (27.0-33.4); MEAN CORPUSCULAR HGB CONC 33.5 g/dL (32.0-36.0); MEAN CORPUSCULAR VOLUME 88 fl (80-97); MONOCYTES % (AUTO) 4.9 % (3-13); PLATELET COUNT 182 10^3/uL (150-450); RED BLOOD COUNT 2.84 10^6/uL (3.72-5.28); RED CELL DISTRIBUTION WIDTH 12.5 % (11.5-14.0); SEGMENTED NEUTROPHILS % (AUTO) 80.9 % (42-78); TOTAL CELLS COUNTED % (AUTO) 100 %; WHITE BLOOD COUNT 12.4 10^3/uL (4.0-10.5)
[2019-05-03] MEDS ORDERED: DIPHENHYDRAMINE HCL 50 MG/ML VIAL IV PRN (19:09)
[2019-05-03] MEDS ORDERED: MEPERIDINE HCL/PF INJ 25 MG/1 ML DISP.SYRIN IV PRN (19:09)
[2019-05-03] MEDS ORDERED: FENTANYL CITRATE INJ/PF 100 MCG/2 ML AMPUL IV PRN ×3 (19:09)
[2019-05-03] MEDS ORDERED: ACETAMINOPHEN 325 MG TABLET PO ONE (20:15)
[2019-05-03] MEDS ORDERED: METHYLERGONOVINE MALEATE 0.2 MG TABLET ONE ×2 (20:22→23:29)
[2019-05-03] MEDS: METHYLERGONOVINE MALEATE 0.2 MG TABLET PO SCH ×2 (20:26→23:31)
[2019-05-03 20:45] LABS: ABSOLUTE LYMPHOCYTES (AUTO) 1.5 10^3/uL (0.5-4.7); ABSOLUTE MONOCYTES (AUTO) 0.8 10^3/uL (0.1-1.4); ABSOLUTE NEUT (AUTO) 8.3 10^3/uL (1.7-8.2); BASOPHILS % (AUTO) 0.3 % (0-2); HEMATOCRIT 27.2 % (36.0-47.0); HEMOGLOBIN 9.4 g/dL (12.0-15.5); LYMPHOCYTES % (AUTO) 14.1 % (13-45); MEAN CORPUSCULAR HEMOGLOBIN 29.7 pg (27.0-33.4); MEAN CORPUSCULAR HGB CONC 34.4 g/dL (32.0-36.0); MEAN CORPUSCULAR VOLUME 86 fl (80-97); MONOCYTES % (AUTO) 7.5 % (3-13); PLATELET COUNT 159 10^3/uL (150-450); RED BLOOD COUNT 3.15 10^6/uL (3.72-5.28); RED CELL DISTRIBUTION WIDTH 12.9 % (11.5-14.0); SEGMENTED NEUTROPHILS % (AUTO) 78.1 % (42-78); TOTAL CELLS COUNTED % (AUTO) 100 %; WHITE BLOOD COUNT 10.6 10^3/uL (4.0-10.5)
[2019-05-03] MEDS ORDERED: FUROSEMIDE 20 MG TABLET PO ONE (22:10)
[2019-05-03] MEDS ORDERED: ZOLPIDEM TARTRATE 5 MG TABLET ONE (23:20)
[2019-05-03] MEDS ORDERED: FAMOTIDINE 20 MG TABLET ONE (23:28)
[2019-05-03] MEDS ORDERED: FERROUS SULFATE 325 MG TABLET PO ONE (23:29)
[2019-05-03] MEDS: FAMOTIDINE 20 MG TABLET PO SCH (23:31)
[2019-05-03] MEDS: FERROUS SULFATE 325 MG TABLET PO SCH (23:32)
[2019-05-04] MEDS: IBUPROFEN 800 MG TABLET PO SCH ×2 (04:14→07:37)
[2019-05-04] MEDS: MISOPROSTOL 0.2 MG TABLET PV SCH ×5 (04:20→10:40)
[2019-05-04] MEDS ORDERED: METHYLERGONOVINE MALEATE 0.2 MG TABLET ONE ×2 (05:10→09:22)
[2019-05-04] MEDS: METHYLERGONOVINE MALEATE 0.2 MG TABLET PO SCH ×3 (05:14→09:27)
[2019-05-04] MEDS ORDERED: ACETAMINOPHEN 325 MG TABLET ONE (05:19)
[2019-05-04] MEDS: ACETAMINOPHEN 325 MG TABLET PO PRN (05:22)
[2019-05-04 06:03] LABS: HEMATOCRIT 24.5 % (36.0-47.0); HEMOGLOBIN 8.6 g/dL (12.0-15.5); MEAN CORPUSCULAR HEMOGLOBIN 30.1 pg (27.0-33.4); MEAN CORPUSCULAR HGB CONC 35.2 g/dL (32.0-36.0); MEAN CORPUSCULAR VOLUME 86 fl (80-97); PLATELET COUNT 137 10^3/uL (150-450); RED BLOOD COUNT 2.85 10^6/uL (3.72-5.28); RED CELL DISTRIBUTION WIDTH 13.2 % (11.5-14.0); WHITE BLOOD COUNT 6.8 10^3/uL (4.0-10.5)
[2019-05-04] MEDS ORDERED: IBUPROFEN 800 MG TABLET ONE (07:26)
[2019-05-04] MEDS ORDERED: SENNOSIDES/DOCUSATE 8.6-50 MG 1 EACH TABLET ONE (09:21)
[2019-05-04] MEDS ORDERED: PRENATAL VITAMIN W DHA CAPSULE PO ONE (09:21)
[2019-05-04] MEDS ORDERED: DOCUSATE SODIUM 100 MG CAPSULE ONE (09:21)
[2019-05-04] MEDS ORDERED: FAMOTIDINE 20 MG TABLET ONE (09:21)
[2019-05-04] MEDS ORDERED: FERROUS SULFATE 325 MG TABLET PO ONE (09:22)
[2019-05-04] MEDS: FERROUS SULFATE 325 MG TABLET PO SCH (09:28)
[2019-05-04] MEDS: DOCUSATE SODIUM 100 MG CAPSULE PO SCH (09:28)
[2019-05-04] MEDS: FAMOTIDINE 20 MG TABLET PO SCH (09:29)
--- NOTE | 2019-05-04 09:30 | PDOC PROGRESS REPORT ---
Subjective Progress Note for:: 05/04/19 Subjective:: Doing well today. No pain. Tolerating PO well. Good UOP via dubon. Not out of bed today. Bleeding light. Reason For Visit: INTRAUTERINE DEMISE Physical Exam - Physical Exam Vital Signs: Temp Pulse Resp BP Pulse Ox 100.4 F 88 14 123/58 L 98 05/03/19 19:40 05/03/19 19:40 05/03/19 19:40 05/03/19 19:40 05/03/19 19:40 Intake & Output 05/03/19 05/04/19 05/05/19 06:59 06:59 06:59 Intake Total 3808 Output Total 650 Balance 3158 Weight 94.2 kg General appearance: PRESENT: no acute distress, well-developed, well-nourished Respiratory exam: PRESENT: clear to auscultation kanchan Cardiovascular exam: PRESENT: RRR, +S1, +S2 GI/Abdominal exam: PRESENT: normal bowel sounds, soft Psychiatric exam: PRESENT: normal mood Skin exam: PRESENT: dry, warm Result Laboratory Results: 05/04/19 05:51 05/03/19 05/03/19 05/03/19 12:59 12:59 17:55 WBC 13.2 H 12.4 H RBC 3.19 L 2.84 L Hgb 9.4 L 8.4 L Hct 27.6 L 25.0 L MCV 87 88 MCH 29.3 29.5 MCHC 33.8 33.5 RDW 12.7 12.5 Plt Count 166 182 Seg Neutrophils % 88.1 H 80.9 H Blood Type B POSITIVE Antibody Screen NEGATIVE 05/03/19 05/04/19 20:36 05:51 WBC 10.6 H 6.8 RBC 3.15 L 2.85 L Hgb 9.4 L 8.6 L Hct 27.2 L 24.5 L MCV 86 86 MCH 29.7 30.1 MCHC 34.4 35.2 RDW 12.9 13.2 Plt Count 159 137 L Seg Neutrophils % 78.1 H Blood Type Antibody Screen Impressions: Pelvis Ultrasound 05/03/19 00:00 IMPRESSION: Extensive heterogeneous material filling the lower uterine segment and cervix. Suspicious for retained products. Assessment & Plan - Diagnosis (1) hemorrhage Qualifiers: hemorrhage type: third-stage Qualified Code(s): O72.0 - Third- stage hemorrhage Is this a current diagnosis for this admission?: Yes (2) Anemia Qualifiers: Anemia type: other cause Other causes of anemia: other cause, not classified Qualified Code(s): D64.89 - Other specified anemias Is this a current diagnosis for this admission?: Yes (3) Delivery normal Is this a current diagnosis for this admission?: Yes - Time Time Spent with patient: Less than 15 minutes - Inpatient Certification I certify that my determination is in accordance with my understanding of Medicare's requirements for reasonable and necessary INPATIENT services [42 CFR 412.3e].: Yes Post Hospital Care: Other - Plan D/c today - Plan Summary Plan Summary: 24 yo s/p delivery IUDF yesterday with hemorrhage following and suction d&c -Doing well today -VSS -D/c dubon this am and ambulate -Bleeding light -tolerating PO well. -Mood appropriate -Hgb this am stable but severe anemia. If asymptomatic on ambulation, will plan d/c with ferrous sulfate 325 mg PO BID -discussed BC, undecided -RH positive -Plan for d/c in 24 hrs with f/u outpatient in 1-2 wks at OB office
[2019-05-04] MEDS ORDERED: DOXYCYCLINE HYCLATE 100 MG TABLET PO ONE (10:00)
[2019-05-04] MEDS ORDERED: PRENATAL VITAMIN W DHA CAPSULE PO SCH (10:00)
[2019-05-04] MEDS ORDERED: SENNOSIDES/DOCUSATE 8.6-50 MG 1 EACH TABLET PO SCH (10:00)
[2019-05-04 11:39] VITALS: BP 114/66
--- NOTE | 2019-05-04 12:10 | PDOC DISCHARGE SUMMARY ---
Impression - Admit/DC Date/PCP Admission Date/Primary Care Provider: 05/02/19 09:56 VICKI FULTON MD Admitted with demise-scheduled IOL Delivered vaginally and hemorrhage afterwards requiring 2 units PRBC and suction D&C. Hemoglobin day of D/c stable. Vaginal bleeding light. D/c on Methergine 0.2 mg PO Q 6 for 24 hrs and Iron BID. Discussed precautions. F/u 10 days for short interval f/u Discharge Date: 05/04/19 - Discharge Diagnosis (1) hemorrhage Is this a current diagnosis for this admission?: Yes (2) Anemia Is this a current diagnosis for this admission?: Yes (3) Delivery normal Is this a current diagnosis for this admission?: Yes - Additional Information Resuscitation Status: Full Code Discharge Diet: Regular Discharge Activity: Activity As Tolerated, No Lifting Over 10 Pounds, No Lifting/Push/Pulling, Pelvic Rest, No tub bath Referrals: VICKI FULTON MD [Primary Care Provider] - (Follow up in 10 days at [facility]) Prescriptions: Ferrous Sulfate 325 mg PO BID 30 Days #60 tablet. Methylergonovine Maleate [Methergine 0.2 Mg Tablet] 0.2 mg PO Q6 1 Days #4 tablet Ibuprofen [Motrin 800 mg Tablet] 800 mg PO Q8 10 Days #30 tablet Home Medications: Vit/Iron Fum/Folic AC [ Tablet] 1 each PO DAILY 03/23/18 Acetaminophen [Tylenol 325 mg Tablet] 650 mg PO Q4HP PRN tablet 05/04/19 Docusate Sodium [Colace 100 mg Capsule] 100 mg PO BID capsule 05/04/19 Ferrous Sulfate 325 mg PO BID 30 Days #60 tablet. 05/04/19 Ferrous Sulfate [Feosol 325 mg Tablet] 325 mg PO BID tablet 05/04/19 Ibuprofen [Motrin 800 mg Tablet] 800 mg PO Q8 10 Days #30 tablet 05/04/19 Measles,Mumps&Rubella Vacc/Pf [M-M-R II Vaccine Kit 0.5 ml] 0.5 ml SUBCUT .DISCHARGE PRN vial 05/04/19 Methylergonovine Maleate [Methergine 0.2 Mg Tablet] 0.2 mg PO Q6 1 Days #4 tablet 05/04/19 History of Present Illiness History of Present Illness: KERI BENEDICT is a 24 year old female Physical Exam - Physical Exam Vital Signs: Temp Pulse Resp BP Pulse Ox 100.4 F 88 14 114/66 98 05/04/19 11:36 05/04/19 11:36 05/04/19 11:36 05/04/19 11:36 05/04/19 11:36 Intake & Output 05/03/19 05/04/19 05/05/19 06:59 06:59 06:59 Intake Total 3808 Output Total 650 Balance 3158 Weight 94.2 kg Results Laboratory Results: WBC 6.8 10^3/uL (4.0-10.5) 05/04/19 05:51 RBC 2.85 10^6/uL (3.72-5.28) L 05/04/19 05:51 Hgb 8.6 g/dL (12.0-15.5) L 05/04/19 05:51 Hct 24.5 % (36.0-47.0) L 05/04/19 05:51 MCV 86 fl (80-97) 05/04/19 05:51 MCH 30.1 pg (27.0-33.4) 05/04/19 05:51 MCHC 35.2 g/dL (32.0-36.0) 05/04/19 05:51 RDW 13.2 % (11.5-14.0) 05/04/19 05:51 Plt Count 137 10^3/uL (150-450) L 05/04/19 05:51 Lymph % (Auto) 14.1 % (13-45) 05/03/19 20:36 [place]ley % (Auto) 7.5 % (3-13) 05/03/19 20:36 Eos % (Auto) 0.0 % (0-6) 05/03/19 20:36 Baso % (Auto) 0.3 % (0-2) 05/03/19 20:36 Absolute Neuts (auto) 8.3 10^3/uL (1.7-8.2) H 05/03/19 20:36 Absolute Lymphs (auto) 1.5 10^3/uL (0.5-4.7) 05/03/19 20:36 Absolute Monos (auto) 0.8 10^3/uL (0.1-1.4) 05/03/19 20:36 Absolute Eos (auto) 0.0 10^3/uL (0.0-0.6) 05/03/19 20:36 Absolute Basos (auto) 0.0 10^3/uL (0.0-0.2) 05/03/19 20:36 Seg Neutrophils % 78.1 % (42-78) H 05/03/19 20:36 Urine Color YELLOW 05/02/19 09:50 Urine Appearance SLIGHTLY-CLOUDY 05/02/19 09:50 Urine pH 6.0 (5.0-9.0) 05/02/19 09:50 Ur Specific [place] 1.023 05/02/19 09:50 Urine Protein NEGATIVE mg/dL (NEGATIVE) 05/02/19 09:50 Urine Glucose (UA) NEGATIVE mg/dL (NEGATIVE) 05/02/19 09:50 Urine Ketones NEGATIVE mg/dL (NEGATIVE) 05/02/19 09:50 Urine Blood NEGATIVE (NEGATIVE) 05/02/19 09:50 Urine Nitrite NEGATIVE (NEGATIVE) 05/02/19 09:50 Urine Bilirubin NEGATIVE (NEGATIVE) 05/02/19 09:50 Urine Urobilinogen NEGATIVE mg/dL (<2.0) 05/02/19 09:50 Ur Leukocyte Esterase NEGATIVE (NEGATIVE) 05/02/19 09:50 Urine Ascorbic Acid NEGATIVE (NEGATIVE) 05/02/19 09:50 Urine Opiates Screen NEGATIVE 05/02/19 09:50 Urine Methadone Screen NEGATIVE 05/02/19 09:50 Ur Barbiturates Screen NEGATIVE 05/02/19 09:50 Ur Phencyclidine Scrn NEGATIVE 05/02/19 09:50 Ur Amphetamines Screen NEGATIVE 05/02/19 09:50 U Benzodiazepines Scrn NEGATIVE 05/02/19 09:50 Urine Cocaine Screen NEGATIVE 05/02/19 09:50 U Marijuana (THC) Screen NEGATIVE 05/02/19 09:50 Blood Type B POSITIVE 05/03/19 12:59 Blood Type Confirm B POSITIVE 05/03/19 12:59 Antibody Screen NEGATIVE 05/03/19 12:59 Crossmatch See Detail 05/03/19 12:59 Impressions: Pelvis Ultrasound 05/03/19 00:00 IMPRESSION: Extensive heterogeneous material filling the lower uterine segment and cervix. Suspicious for retained products. Stroke Is this a Stroke Patient?: No Acute Heart Failure - Is this a Heart Failure Patient?: No
[2019-05-05] MEDS ORDERED: (PENDING PHARMACY ID) (Prenatal Vit/Iron Fum/Folic Ac [Prenatal Tablet] 1 EACH) PO SCH (10:00)
--- NOTE | 2019-05-07 09:40 | Delivery Summary ---
Del Sum A-C Datetime Report Generated by CPN: 05/07/2019 09:40 DELIVERY PERSONNEL DELIVERY PERSONNEL: [id number] Delivery Doctor:: Romeo Higgins MD Labor and Delivery Nurse:: Kvng Ram RNcake stripper Nurse:: Jasmyne Garcia RN MATERNAL INFORMATION Delivery Anesthesia: None Medications After Delivery: Pitocin Bolus-Please Comment; Methergine 0.2mg IM; Cytotec 1000mcg Per Rectum/Vagina Meds After Delivery Comment: Pitocin 20 units x2 Estimated Blood Loss (ml): 500 Delivery QBL: 248 Maternal Complications: None Provider Comments: Placenta delivered spontaneously. It does appear macerated. She had some bleeding post and a speculum exam shows no cervical or vaginal tears. A large clot delivered from the cervical os. Now the uterus feels small and contracted. Bleeding is better now. LABOR SUMMARY EDC: 08/02/2019 00:00 No. Babies in Womb: 1 Attempted: No Labor Anesthesia: IV Sedation LABOR INFORMATION Reason for Induction: Demise Onset of Labor: 05/02/2019 21:41 Complete Dilatation: 05/03/2019 10:42 Cervical Ripening Agents: Cytotec @ Cervical Ripening Agents: Cytotec @ 200mcg Cervical Ripening Agents: Cytotec @ 200 mcg Oxytocin: N/A Group B Beta Strep: UNKNOWN Antibiotics # of Doses: 0 Steroids Given: None Reason Steroids Not Administered: Not Applicable MEMBRANES Membranes Rupture Method: Spontaneous Rupture of Membranes: 05/03/2019 10:42 Length of Rupture (hr): 0.00 Amniotic Fluid Color: Bloody Amniotic Fluid Amount: Moderate Amniotic Fluid Odor: Normal STAGES OF LABOR Stage 1 hr: 13 Stage 1 min: 1 Stage 2 hr: 0 Stage 2 min: 0 Stage 3 hr: 0 Stage 3 min: 28 Total Time in Labor hr: 13 Total Time in Labor min: 29 VAGINAL DELIVERY Episiotomy: None Laceration #1: None Laceration Extension #1: N/A Laceration Repair: Not Applicable Sponge Count Correct: N/A Sharps Count Correct: N/A CSECTION DELIVERY Primary Indication: N/A Secondary Indication: N/A CSection Incidence: N/A Labor: N/A Elective: N/A CSection Incision: N/A BABY A INFORMATION Infant Delivery Date/Time: 05/03/2019 10:42 Method of Delivery: Vaginal Born in Route : No : N/A Forceps: N/A Vacuum Extraction: N/A Shoulder Dystocia : No PRESENTATION/POSITION BABY A Presentation: Breech Cephalic Presentation: N/A Breech Presentation: Complete PLACENTA INFORMATION BABY A Placenta Delivery Time : 05/03/2019 11:10 Placenta Method of Delivery: Spontaneous Placenta Method of Delivery: Spontaneous Placenta Status: Delivered INFORMATION BABY A Gestational Age at Delivery: 27.0 Gestational Status: - <34 Weeks Outcome : Stillborn Condition : Critical Sex: Male WEIGHT/LENGTH BABY A Infant Birthweight (gm): 858 Infant Weight (lb): 1 Weight (oz): 14 Infant Length (in): 13.00 Infant Length (cm): 33.02 CORD INFORMATION BABY A Nuchal Cord : N/A Cord Blood Taken: Yes-For Storage (Mom's Blood type +) Infant Suction: None ASSESSMENT BABY A Infant Complications: Other Physical Findings at Delivery: Other Physical Findings- Other: cord is twisted at the insertion c/w cord accident. demise BABY B INFORMATION : N/A SIGNATURES Signature: with User ID: [email or web address]
== END 2019-05-04 12:30 | disposition home or self-care (01) | DRG 797 ==
LOC: LR 09:56
PROVIDERS: ADMIT Obstetrics & Gynecology; ATTEND Obstetrics & Gynecology
PROC: 10E0XZZ Delivery of Products of Conception, External Approach (ICD-10-PCS; principal; 2019-05-02)
PROC: 10D17ZZ Extraction of Products of Conception, Retained, Via Natural or Artificial Opening (ICD-10-PCS; 2019-05-03)
PROC: 0UCG7ZZ Extirpation of Matter from Vagina, Via Natural or Artificial Opening (ICD-10-PCS; 2019-05-03)
PROC: 30233K1 Transfusion of Nonautologous Frozen Plasma into Peripheral Vein, Percutaneous Approach (ICD-10-PCS; 2019-05-03)
PROC: 30233N1 Transfusion of Nonautologous Red Blood Cells into Peripheral Vein, Percutaneous Approach (ICD-10-PCS; 2019-05-03)
DX: O36.4XX0 Maternal care for intrauterine death, not applicable or unspecified (principal); O72.0 Third-stage hemorrhage; Z37.1 Single stillbirth; O69.89X0 Labor and delivery complicated by other cord complications, not applicable or unspecified; O24.419 Gestational diabetes mellitus in pregnancy, unspecified control; Z3A.26 26 weeks gestation of pregnancy; O90.81 Anemia of the puerperium; D64.89 Other specified anemias; O32.1XX0 Maternal care for breech presentation, not applicable or unspecified
CPT/HCPCS: 1965; 36415; 36430; 76856; 80307; 81005; 85025; 85027; 86850; 86900; 86901; 86920; 88305; 93976; J0330; J0690; J2210; J2250; J2300; J2405; J2550; J2590; J2704; J2765; J3010; J3490; P9016; P9017; S0028; S0119

== ENCOUNTER 2019-06-19 21:06 | Emergency (ER) | payer MEDICAID ==
--- NOTE | 2019-06-19 23:54 | ER Document Report ---
ED Medical Screen (RME) - General Chief Complaint: Nausea/Vomiting/Diarrhea Stated Complaint: FEVER Time Seen by Provider: 06/19/19 23:46 Primary Care Provider: VICKI FULTON MD [Primary Care Provider] - Follow up as needed TRAVEL OUTSIDE OF THE [place] IN LAST 30 DAYS: No - HPI Notes: 06/19/19 23:51 Patient is a 24-year-old female no significant past medical history presents c omplaining of nasal congestion, dry cough, fever, body ache, chills for the past couple days. She is able to eat and drink, but does have occasional nausea. She has noted some watery diarrhea recently as well. No abdominal pain or chest pain. No headache or neck pain. I have treated and performed a rapid initial assessment of this patient. A comprehensive ED assessment and evaluation of the patient, analysis of test results and completion of medical decision making process will be conducted by additional ED providers. PHYSICAL EXAMINATION: Vitals: afebrile currently at 99.5. HR 105. O2 100% RA. GENERAL: Well-appearing, well-nourished and in no acute distress. A&Ox4. Answers questions appropriately. Lungs: grossly CTAB. - Related Data Allergies/Adverse Reactions: amoxicillin Allergy (Verified 05/02/19 11:54) Penicillins Allergy (Verified 05/02/19 11:54) Past Medical History - Past Medical History Cardiac Medical History: Denies: Hx Coronary Artery Disease, Hx Heart Attack, Hx Hypertension Pulmonary Medical History: Denies: Hx Asthma, Hx Bronchitis, Hx COPD, Hx Pneumonia Neurological Medical History: Denies: Hx Cerebrovascular Accident, Hx Seizures Renal/ Medical History: Denies: Hx Peritoneal Dialysis Musculoskeltal Medical History: Denies Hx Arthritis Psychiatric Medical History: Reports: Hx Attention Deficit Hyperactivity Disorder Past Surgical History: Reports: Hx Cholecystectomy - Immunizations Immunizations up to date: Yes Hx Diphtheria, Pertussis, Tetanus Vaccination: Yes Physical Exam - Vital signs Vitals: Temp Pulse Resp BP Pulse Ox 100.7 F H 111 H 20 135/78 H 99 06/19/19 21:58 06/19/19 21:58 06/19/19 21:58 06/19/19 21:58 06/19/19 21:58 Course - Vital Signs Vital signs: Temp Pulse Resp BP Pulse Ox 100.7 F H 111 H 20 135/78 H 99 06/19/19 21:58 06/19/19 21:58 06/19/19 21:58 06/19/19 21:58 06/19/19 21:58 Doctor's Discharge - Discharge Referrals: VICKI FULTON MD [Primary Care Provider] - Follow up as needed
--- NOTE | 2019-06-20 01:26 | RADIOLOGY REPORT (SQ) ---
Chest 2 view on 06/20/2019 at 1:05 AM CLINICAL INDICATION: Cough COMPARISON: 07/29/2017 FINDINGS: There is patchy opacity in the lingula consistent with a lingular pneumonia. Lungs are otherwise clear. Cardiac, hilar and mediastinal contours are within normal limits. No bony abnormality is noted. IMPRESSION: Findings consistent with a lingular pneumonia.
[2019-06-20 02:45] VITALS: BP 145/80
== END 2019-06-20 02:58 | disposition left against medical advice (07) ==
LOC: ER 21:06
DX: R09.81 Nasal congestion (principal); R05 Cough; R50.9 Fever, unspecified; R52 Pain, unspecified; R19.7 Diarrhea, unspecified; Z88.0 Allergy status to penicillin; Z53.20 Procedure and treatment not carried out because of patient's decision for unspecified reasons
CPT/HCPCS: 71046

== ENCOUNTER 2019-08-13 00:18 | Emergency (ER) | payer MEDICAID ==
--- NOTE | 2019-08-13 02:05 | ER Document Report ---
ED Headache - General Chief Complaint: Headache Stated Complaint: HEADACHE Time Seen by Provider: 08/13/19 01:33 Primary Care Provider: RAMIREZ FISCHER MD [Primary Care Provider] - Follow up as needed Mode of Arrival: Ambulatory Information source: Patient Notes: 24-year-old woman presents to the emergency department with a history of headaches. Apparently hit her head approximately 1 month ago and since that time has been noticing headaches and intermittent dizziness episodes. She denies loss of consciousness or neck pain. No significant areas of swelling, h owever, headaches have been recurrent and typically responds to Tylenol and ibuprofen. Today however, the headache did not improve with ibuprofen and she has come to the emergency department for further evaluation and treatment. TRAVEL OUTSIDE OF THE [place] IN LAST 30 DAYS: No - Related Data Allergies/Adverse Reactions: amoxicillin Allergy (Verified 05/02/19 11:54) Penicillins Allergy (Verified 05/02/19 11:54) Home Medications: lorazepam. adderal Past Medical History - Social History Smoking Status: Never Smoker Frequency of alcohol use: Rare Drug Abuse: None Family History: None Patient has suicidal ideation: No Patient has homicidal ideation: No - Past Medical History Cardiac Medical History: Denies: Hx Coronary Artery Disease, Hx Heart Attack, Hx Hypertension Pulmonary Medical History: Denies: Hx Asthma, Hx Bronchitis, Hx COPD, Hx Pneumonia Neurological Medical History: Denies: Hx Cerebrovascular Accident, Hx Seizures Renal/ Medical History: Denies: Hx Peritoneal Dialysis Musculoskeletal Medical History: Denies Hx Arthritis Psychiatric Medical History: Reports: Hx Attention Deficit Hyperactivity Disorder Past Surgical History: Reports: Hx Cholecystectomy - Immunizations Immunizations up to date: Yes Hx Diphtheria, Pertussis, Tetanus Vaccination: Yes Review of Systems - Review of Systems Notes: Constitutional: Negative for fever. HENT: Negative for sore throat. Eyes: Negative for visual changes. Cardiovascular: Negative for chest pain. Respiratory: Negative for shortness of breath. Gastrointestinal: Negative for abdominal pain, vomiting or diarrhea. Genitourinary: Negative for dysuria. Musculoskeletal: Negative for back pain. Skin: Negative for rash. Neurological: + headaches, + dizziness 10 point ROS negative except as marked above and in HPI. Physical Exam - Vital signs Vitals: Temp Pulse Resp BP Pulse Ox 97.5 F 86 16 137/80 H 97 08/13/19 00:21 08/13/19 00:21 08/13/19 00:21 08/13/19 00:21 08/13/19 00:21 - Notes Notes: PHYSICAL EXAMINATION: Physical Exam: General: Well-nourished well-developed 24-year-old woman in no acute distress HEENT: NC/AT, pupils equal round and reactive to light, extraocular motions intact, MM moist,nares clear, Neck: supple, no adenopathy, no masses. Lungs: clear, no wheezing, no rales no rhonchi CVS: Regular rate and rhythm no murmur gallop or rub Abdomen: Soft active nontender, no masses, no hepatosplenomegaly Ext: No edema clubbing or cyanosis. Neuro: Alert and responsive, moving all 4 extremities on command, cranial nerves intact. Skin: Intact no open lesions, no rash PSYCH: Normal mood, normal affect. Course - Re-evaluation Re-evalutation: 08/13/19 02:04 Patient presents with a headache, unusual story of low-level head injury approximately 1 month ago and now recurrent headaches with associated dizziness. There is no associated neurologic focal findings. Will treat patient for symptoms and do not will also obtain a follow-up. - Vital Signs Vital signs: Temp Pulse Resp BP Pulse Ox 97.5 F 86 16 137/80 H 97 08/13/19 00:21 08/13/19 00:21 08/13/19 00:21 08/13/19 00:21 08/13/19 00:21 Discharge - Discharge Clinical Impression: Headache Qualifiers: Headache type: unspecified Headache chronicity pattern: episodic headache Intractability: not intractable Qualified Code(s): R51 - Headache Condition: Good Disposition: HOME, SELF-CARE Instructions: Headache ([facility]) Additional Instructions: Use the medication as prescribed. Naprosyn, baclofen Follow-up with your doctor as needed Return to the emergency department as needed. Referrals: RAMIREZ FISCHER MD [Primary Care Provider] - Follow up as needed
[2019-08-13] MEDS ORDERED: HYDROXYZINE HCL INJ 50 MG/1 ML VIAL IM ONE (02:07)
[2019-08-13 03:04] VITALS: BP 118/64
== END 2019-08-13 03:06 | disposition home or self-care (01) ==
LOC: ER 00:18
DX: R51 Headache (principal); R42 Dizziness and giddiness
CPT/HCPCS: 99283; 96372; J3410

== ENCOUNTER 2020-03-28 19:49 | Emergency (ER) | payer MEDICAID ==
[2020-03-28 20:00] VITALS: BP 132/90
[2020-03-28 21:23] LABS: ABSOLUTE BASOPHILS # (AUTO) 0.1 10^3/uL (0.0-0.2); ABSOLUTE EOSINOPHILS # (AUTO) 0.1 10^3/uL (0.0-0.6); ABSOLUTE LYMPHOCYTES (AUTO) 1.7 10^3/uL (0.5-4.7); ABSOLUTE MONOCYTES (AUTO) 0.4 10^3/uL (0.1-1.4); ABSOLUTE NEUT (AUTO) 7.1 10^3/uL (1.7-8.2); BASOPHILS % (AUTO) 0.7 % (0-2); EOSINOPHILS % (AUTO) 0.6 % (0-6); HEMATOCRIT 43.4 % (36.0-47.0); HEMOGLOBIN 14.6 g/dL (12.0-15.5); LYMPHOCYTES % (AUTO) 18.3 % (13-45); MEAN CORPUSCULAR HEMOGLOBIN 29.9 pg (27.0-33.4); MEAN CORPUSCULAR HGB CONC 33.7 g/dL (32.0-36.0); MEAN CORPUSCULAR VOLUME 89 fl (80-97); PLATELET COUNT 261 10^3/uL (150-450); RED BLOOD COUNT 4.89 10^6/uL (3.72-5.28); RED CELL DISTRIBUTION WIDTH 12.8 % (11.5-14.0); SEGMENTED NEUTROPHILS % (AUTO) 76.4 % (42-78); TOTAL CELLS COUNTED % (AUTO) 100 %; WHITE BLOOD COUNT 9.3 10^3/uL (4.0-10.5)
[2020-03-28 21:37] LABS: ALKALINE PHOSPHATASE 84 U/L (38-126); ANION GAP 11 (5-19); ASPARTATE AMINO TRANSFERASE 21 U/L (14-36); BILIRUBIN,DIRECT 0.1 mg/dL (0.0-0.4); BILIRUBIN,TOTAL 0.4 mg/dL (0.2-1.3); BLOOD UREA NITROGEN 10 mg/dL (7-20); CALCIUM 9.5 mg/dL (8.4-10.2); CARBON DIOXIDE 26 mmol/L (22-30); CHLORIDE 104 mmol/L (98-107); GLUCOSE 121 mg/dL (75-110); POTASSIUM 3.7 mmol/L (3.6-5.0); TOTAL PROTEIN 8.4 g/dL (6.3-8.2)
--- NOTE | 2020-03-28 22:17 | ER Document Report ---
ED Medical Screen (RME) - General Chief Complaint: Neck Swelling Stated Complaint: NECK PAIN Notes: 24-year-old female with past medical history of ADHD and anxiety presenting today with right-sided neck pain for 3 days. States whenever she tries to eat or swallow she feels like something is pushing on the right side of her neck. She also has pain when she rotates her neck to the right. States that when she eats certain foods like meat she has more difficulty swallowing. She denies any fevers, chills. No shortness of breath. PE: Acute, no distress. Oropharynx is unremarkable. Right-sided neck is tender to palpation. No masses noted. Heart regular rate rhythm no murmurs. Lungs are clear to auscultation bilaterally. I have greeted and performed a rapid initial assessment of this patient. A comprehesive ED assessment and evaluation of this patient, analysis of test results and completion of the medical decision-making process will be conducted by additional ED providers. TRAVEL OUTSIDE OF THE [place] IN LAST 30 DAYS: No - Related Data Allergies/Adverse Reactions: amoxicillin Allergy (Verified 03/28/20 20:40) Penicillins Allergy (Verified 03/28/20 20:40) Home Medications: adderall, lorazepam Past Medical History - Social History Chew tobacco use (# tins/day): No Frequency of alcohol use: None Drug Abuse: None - Past Medical History Cardiac Medical History: Denies: Hx Coronary Artery Disease, Hx Heart Attack, Hx Hypertension Pulmonary Medical History: Denies: Hx Asthma, Hx Bronchitis, Hx COPD, Hx Pneumonia Neurological Medical History: Denies: Hx Cerebrovascular Accident, Hx Seizures Renal/ Medical History: Denies: Hx Peritoneal Dialysis Musculoskeltal Medical History: Denies Hx Arthritis Psychiatric Medical History: Reports: Hx Attention Deficit Hyperactivity Disorder Past Surgical History: Reports: Hx Cholecystectomy - Immunizations Immunizations up to date: Yes Hx Diphtheria, Pertussis, Tetanus Vaccination: Yes Physical Exam - Vital signs Vitals: Temp Pulse Resp BP Pulse Ox 99.2 F 98 20 132/90 H 100 03/28/20 19:58 03/28/20 19:58 03/28/20 19:58 03/28/20 19:58 03/28/20 19:58 Course - Vital Signs Vital signs: Temp Pulse Resp BP Pulse Ox 99.2 F 98 20 132/90 H 100 03/28/20 19:58 03/28/20 19:58 03/28/20 19:58 03/28/20 19:58 03/28/20 19:58
--- NOTE | 2020-03-28 23:33 | RADIOLOGY REPORT (SQ) ---
EXAM DESCRIPTION: CT NECK WITH IV CONTRAST COMPLETED DATE/TME: 03/28/2020 20:50 CLINICAL HISTORY: 24 years Female neck pain COMPARISON: None. TECHNIQUE: Contiguous axial images obtained through the neck with IV contrast. Reformatted images obtained. This exam was performed according to our department optimization program which includes automated exposure control, adjustment of the mA and/or kv according to patient size and/or use of iterative reconstruction technique. FINDINGS: The parotid glands, submandibular glands and thyroid gland appear unremarkable. Nasopharynx is unremarkable. Epiglottis and vocal cords are within normal limits. Scattered lymph nodes in the neck likely reactive. No enlarged nodes or mass lesions are identified. There are prominent palatine tonsils. Some foci of calcification may reflect previous infection. No focal abscess or surrounding inflammatory changes. IMPRESSION: Prominent palatine tonsils which may reflect tonsillitis with reactive cervical adenopathy No evidence of parapharyngeal or peritonsillar abscess
--- NOTE | 2020-03-28 23:36 | ER Document Report ---
Entered by SHERYL CLANCY SCRIBE 03/28/20 [id number] Acting as scribe for:RADHA SMART IV, MD ED Neck/Back Problem - General Chief Complaint: Neck Swelling Stated Complaint: NECK PAIN Mode of Arrival: Ambulatory Information source: Patient Notes: This 24 year old female patient presents to the ED today with complaints of right-sided neck pain for the past x1-2 weeks, worse in the last x3 days. Patient reports difficulty swallowing, stating that she feels a pressure or like the food is pushing on something in her neck. Denies shortness of breath, stridor, fever, chills, nausea/vomiting, or known COVID exposure. TRAVEL OUTSIDE OF THE [place] IN LAST 30 DAYS: No - Related Data Allergies/Adverse Reactions: amoxicillin Allergy (Verified 03/28/20 20:40) Penicillins Allergy (Verified 03/28/20 20:40) Home Medications: adderall, lorazepam Past Medical History - General Information source: Patient - Social History Smoking Status: Never Smoker Cigarette use (# per day): No Chew tobacco use (# tins/day): No Smoking Education Provided: No Frequency of alcohol use: None Drug Abuse: None Family History: Reviewed & Not Pertinent Patient has suicidal ideation: No Patient has homicidal ideation: No Psychiatric Medical History: Reports: Hx Attention Deficit Hyperactivity Disorder Past Surgical History: Reports: Hx Cholecystectomy - Immunizations Immunizations up to date: Yes Hx Diphtheria, Pertussis, Tetanus Vaccination: Yes Review of Systems - Review of Systems Constitutional: See HPI. denies: Chills, Fever EENT: See HPI, Difficulty swallowing Cardiovascular: No symptoms reported Respiratory: See HPI. denies: Short of breath, Stridor Gastrointestinal: See HPI. denies: Nausea, Vomiting Genitourinary: No symptoms reported Female Genitourinary: No symptoms reported Musculoskeletal: See HPI, Neck pain Skin: No symptoms reported Hematologic/Lymphatic: No symptoms reported Neurological/Psychological: No symptoms reported -: Yes All other systems reviewed and negative Physical Exam - Vital signs Vitals: Temp Pulse Resp BP Pulse Ox 99.2 F 98 20 132/90 H 100 03/28/20 19:58 03/28/20 19:58 03/28/20 19:58 03/28/20 19:58 03/28/20 19:58 - General General appearance: Alert In distress: None - HEENT Head: Normocephalic, Atraumatic Eyes: Normal Pupils: PERRL Pharynx: Erythema - Bilateral tonsillar erythema and edema. No: Exudate, Uvular edema - or deviation Neck: Anterior cervical chain - Right. No: Posterior cervical chain, Ly mphadenopathy - Left anterior cervical chain - Respiratory Respiratory status: No respiratory distress Chest status: Nontender Breath sounds: Normal Chest palpation: Normal - Cardiovascular Rhythm: Regular Heart sounds: Normal auscultation Murmur: No Friction rub: No Gallop: None auscultated - Abdominal Inspection: Normal Distension: No distension Bowel sounds: Normal Tenderness: Nontender - Abdomen soft Organomegaly: No organomegaly - Back Back: Normal, Nontender - Extremities General upper extremity: Normal inspection General lower extremity: Normal inspection - Neurological Neuro grossly intact: Yes Orientation: AAOx4 [place] Coma Scale Eye Opening: Spontaneous [place] Coma Scale Verbal: Oriented [place] Coma Scale Motor: Obeys Commands [place] Coma Scale Total: 15 - Psychological Associated symptoms: Normal affect, Normal mood - Skin Skin Temperature: Warm Skin Moisture: Dry Skin Color: Normal Course - Re-evaluation Re-evalutation: 03/29/20 00:40 Results of ED MSE discussed with patient. All questions were answered prior to discharge. Emergency signs and symptoms, reasons to return to the emergency department discussed with patient. - Vital Signs Vital signs: Temp Pulse Resp BP Pulse Ox 99.2 F 98 20 132/90 H 100 03/28/20 19:58 03/28/20 19:58 03/28/20 19:58 03/28/20 19:58 03/28/20 19:58 - Laboratory Result Diagrams: 03/28/20 21:10 03/28/20 21:10 Laboratory results interpreted by me: 03/28/20 21:10 Glucose 121 H Total Protein 8.4 H - Diagnostic Test Radiology reviewed: Reports reviewed Discharge - Discharge Clinical Impression: Tonsillitis Condition: Stable Disposition: HOME, SELF-CARE Instructions: Use of Gpwu-Ytu-Kxtzoci Ibuprofen ([facility]), Tonsillitis ([facility]) Additional Instructions: Return to the Emergency Department without delay if any worse. HOME CARE INSTRUCTIONS & INFORMATION: Thank you for choosing us for your medical needs. We hope you're satisfied with the care you received. After you leave, you must properly care for your problem and, at the same time, observe its progress. Any condition can change. Some illnesses can change rapidly over hours or days. If your condition worsens, return to the Emergency Department or see your physician promptly. ABOUT YOUR X-RAYS AND EKG'S: If you had an EKG or X-rays taken, they have been read by the Emergency Physician. The X-rays and EKG's will also be read by a Radiologist or Stogie Packer within 24 hours. If discrepancies are noted, you will be notified by telephone. Please be certain the ED has a correct telephone number & address where you can be reached. Also, realize that some fractures or abnormalities do not show up on initial X-rays. If your symptoms continue, see your physician. ABOUT YOUR LABORATORY TEST: If you had laboratory tests, the results have been reviewed by the Emergency Physician. Some test results (for example cultures) may not be available for several days. You will be contacted if any test result shows you need additional treatment. Please be certain the ED has a correct telephone number and address where you can be reached. ABOUT YOUR MEDICATIONS: You will receive instructions on how to take your medicine on the prescription label you receive. Additional information may be provided by the Pharmacy. If you have questions afterwards, call the ED for clarification or further instructions. Some prescribed medications may cause drowsiness. Do not perform tasks such as driving a car or operating machinery without consulting your Pharmacist. If you feel you need a refill of pain medication, your condition will need re-evaluation. Please do not call for a refill of any medication. ABOUT YOUR SIGNATURE: Signature of this document acknowledges to followin. Understanding that you received emergency treatment and that you may be released before al medical problems are known or treated. Please be certain the ED has a correct phone number & address where you can be reached. 2. Acknowledgement that you will arrange for follow-up care as recommended. 3. Authorization for the Emergency Physician to provide information to your follow-up Physician in order to maximize your care. AT ANY TIME, IF YOUR SYMPTOMS CHANGE SIGNIFICANTLY OR WORSEN OR YOU DEVELOP NEW SYMPTOMS, RETURN TO THE EMERGENCY DEPARTMENT IMMEDIATELY FOR RE-EVALUATION. OUR GOAL IS TO PROVIDE EXCELLENT MEDICAL CARE! WE HOPE THAT WE HAVE MET YOUR EXPECTATIONS DURING YOUR EMERGENCY DEPARTMENT VISIT AND THAT YOU FEEL YOU HAVE RECEIVED EXCELLENT CARE! Referrals: SHELBY TODD MD [HONORARY] - Follow up as needed I personally performed the services described in the documentation, reviewed and edited the documentation which was dictated to the scribe in my presence, and it accurately records my words and actions.
[2020-03-29] MEDS ORDERED: DEXAMETHASONE 4 MG TABLET PO ONE (00:03)
== END 2020-03-29 01:04 | disposition home or self-care (01) ==
LOC: ER 19:49
DX: J03.90 Acute tonsillitis, unspecified (principal); M54.2 Cervicalgia; R13.10 Dysphagia, unspecified; F90.9 Attention-deficit hyperactivity disorder, unspecified type; Z79.899 Other long term (current) drug therapy; Z88.0 Allergy status to penicillin
CPT/HCPCS: 99285; 36415; 87070; 87880; 85025; 81025; 80053; 70491; J3490; J8540

== ENCOUNTER 2020-04-04 17:12 | Emergency (ER) | payer MEDICAID ==
--- NOTE | 2020-04-04 17:32 | ER Document Report ---
ED Medical Screen (RME) - General Chief Complaint: Abdominal Pain Stated Complaint: ABDOMINAL PAIN Time Seen by Provider: 04/04/20 17:28 Mode of Arrival: Ambulatory Information source: Patient Notes: Patient presents complaining of right lower quadrant abdominal pain for the past week. Patient states area seem to been swollen. Patient reports nausea without any vomiting or diarrhea. Patient denies any urinary symptoms. Patient does report mild vaginal discharge. I have greeted and performed a rapid initial assessment of this patient. A comprehensive ED assessment and evaluation of the patient, analysis of test results and completion of the medical decision making process will be conducted by additional ED providers. TRAVEL OUTSIDE OF THE [place] IN LAST 30 DAYS: No - Related Data Allergies/Adverse Reactions: amoxicillin Allergy (Verified 04/04/20 17:25) Penicillins Allergy (Verified 04/04/20 17:25) Past Medical History - Past Medical History Cardiac Medical History: Denies: Hx Coronary Artery Disease, Hx Heart Attack, Hx Hypertension Pulmonary Medical History: Denies: Hx Asthma, Hx Bronchitis, Hx COPD, Hx Pneumonia Neurological Medical History: Denies: Hx Cerebrovascular Accident, Hx Seizures Renal/ Medical History: Denies: Hx Peritoneal Dialysis Musculoskeltal Medical History: Denies Hx Arthritis Psychiatric Medical History: Reports: Hx Attention Deficit Hyperactivity Disorder Past Surgical History: Reports: Hx Cholecystectomy - Immunizations Immunizations up to date: Yes Hx Diphtheria, Pertussis, Tetanus Vaccination: Yes Physical Exam - Vital signs Vitals: Temp Pulse Resp BP Pulse Ox 98.0 F 89 20 140/72 H 99 04/04/20 17:21 04/04/20 17:21 04/04/20 17:21 04/04/20 17:21 04/04/20 17:21 - Abdominal Tenderness: Tender - Right lower quadrant tenderness Course - Vital Signs Vital signs: Temp Pulse Resp BP Pulse Ox 98.0 F 89 20 140/72 H 99 04/04/20 17:21 04/04/20 17:21 04/04/20 17:21 04/04/20 17:21 04/04/20 17:21
[2020-04-04 18:02] LABS: ABSOLUTE BASOPHILS # (AUTO) 0.1 10^3/uL (0.0-0.2); ABSOLUTE LYMPHOCYTES (AUTO) 1.7 10^3/uL (0.5-4.7); ABSOLUTE MONOCYTES (AUTO) 0.4 10^3/uL (0.1-1.4); ABSOLUTE NEUT (AUTO) 4.5 10^3/uL (1.7-8.2); BASOPHILS % (AUTO) 0.8 % (0-2); EOSINOPHILS % (AUTO) 0.7 % (0-6); HEMATOCRIT 39.2 % (36.0-47.0); HEMOGLOBIN 13.4 g/dL (12.0-15.5); LYMPHOCYTES % (AUTO) 25.5 % (13-45); MEAN CORPUSCULAR HEMOGLOBIN 29.7 pg (27.0-33.4); MEAN CORPUSCULAR HGB CONC 34.1 g/dL (32.0-36.0); MEAN CORPUSCULAR VOLUME 87 fl (80-97); MONOCYTES % (AUTO) 6.2 % (3-13); PLATELET COUNT 209 10^3/uL (150-450); RED CELL DISTRIBUTION WIDTH 12.8 % (11.5-14.0); SEGMENTED NEUTROPHILS % (AUTO) 66.8 % (42-78); TOTAL CELLS COUNTED % (AUTO) 100 %; WHITE BLOOD COUNT 6.8 10^3/uL (4.0-10.5)
[2020-04-04 18:23] LABS: APPEARANCE,URINE SLIGHTLY-CLOUDY; BILIRUBIN,URINE NEGATIVE (NEGATIVE); COLOR,URINE YELLOW; GLUCOSE, URINE NEGATIVE (NEGATIVE); KETONES,URINE NEGATIVE (NEGATIVE); LEUKOCYTE ESTERASE,URINE TRACE (NEGATIVE); NITRITE,URINE NEGATIVE (NEGATIVE); PROTEIN,URINE 30 mg/dL (NEGATIVE); URINE SPECIFIC GRAVITY 1.033; UROBILINOGEN,URINE NEGATIVE mg/dL (<2.0)
[2020-04-04 18:27] LABS: ALBUMIN 4.5 g/dL (3.5-5.0); ALKALINE PHOSPHATASE 69 U/L (38-126); ANION GAP 10 (5-19); ASPARTATE AMINO TRANSFERASE 16 U/L (14-36); BILIRUBIN,DIRECT 0.3 mg/dL (0.0-0.4); BILIRUBIN,TOTAL 0.4 mg/dL (0.2-1.3); BLOOD UREA NITROGEN 12 mg/dL (7-20); CALCIUM 9.4 mg/dL (8.4-10.2); CARBON DIOXIDE 24 mmol/L (22-30); CHLORIDE 104 mmol/L (98-107); GLUCOSE 108 mg/dL (75-110); POTASSIUM 4.2 mmol/L (3.6-5.0); TOTAL PROTEIN 7.4 g/dL (6.3-8.2)
--- NOTE | 2020-04-04 18:39 | RADIOLOGY REPORT (SQ) ---
EXAM DESCRIPTION: U/S NON OB PEL W/DOPPLER IMAGES COMPLETED DATE/TIME: 04/04/2020 6:26 pm REASON FOR STUDY: RLQ pain COMPARISON: 05/03/2019. TECHNIQUE: Dynamic and static grayscale images acquired of the pelvis via transvaginal approach and recorded on PACS. Additional selected color Doppler and spectral images recorded. LIMITATIONS: None. FINDINGS: UTERUS: Contour normal. No mass. ENDOMETRIAL STRIPE: No focal or generalized thickening. No masses. CERVIX: No nabothian cysts. RIGHT OVARY AND DOPPLER: Normal size. Hemorrhagic cyst with numerous linear internal echoes, measuri ng 3.6 cm. Normal arterial vascular flow without evidence for torsion. LEFT OVARY AND DOPPLER: Normal size. No worrisome masses. Normal arterial vascular flow without evide nce for torsion. FREE FLUID: None noted. OTHER: No other significant finding. MEASUREMENTS: UTERUS: 4.7 x 5.7 x 9.2 cm. ENDOMETRIAL STRIPE: 7.5 mm. RIGHT OVARY: 3.4 x 3.8 x 4.5 cm. LEFT OVARY: 2.3 x 2.7 x 3.3 cm. IMPRESSION: 3.6 CM HEMORRHAGIC CYST IN THE RIGHT OVARY. TECHNICAL DOCUMENTATION: JOB ID: [id number] 2010 [employer]- All Rights Reserved Rev-12/21 Reading location - IP/workstation name: [email or web address]
[2020-04-04 19:29] LABS: CHLAM PCR NOT DETECTED (NOT DETECT)
--- NOTE | 2020-04-04 21:07 | ER Document Report ---
ED Medical Screen (E) - General Chief Complaint: Abdominal Pain Stated Complaint: ABDOMINAL PAIN Time Seen by Provider: 04/04/20 17:28 Mode of Arrival: Ambulatory Information source: Patient Notes: 04/04/20 17:25 - [id number] : 1995 Patient Age: 24 Pt ambulated to triage room without difficulty. Pt reports Right sided pelvic pain that radiates to mid abdomen, x 1 week. Pt denies urinary symptoms. Pt sitting up to chair, Resp even & unlabored. Pt able to speak in complete sentences. NAIN Escobedo present for triage. Initialized on 04/04/20 17:25 - END OF NOTE ED Medical Screen (Fanny alford) - General Chief Complaint: Abdominal Pain Stated Complaint: ABDOMINAL PAIN Time Seen by Provider: 04/04/20 17:28 Mode of Arrival: Ambulatory Information source: Patient Notes: Patient presents complaining of right lower quadrant abdominal pain for the past week. Patient states area seem to been swollen. Patient reports nausea without any vomiting or diarrhea. Patient denies any urinary symptoms. Patient does report mild vaginal discharge. MY NOTES 24-year-old female with right lower quadrant abdominal pain x1 week. She denies any trauma abuse vaginal discharge STDs PID diarrhea constipation fever chills cough cold coronavirus symptoms spider bite animal bite tick bite. She has never had similar symptoms in the past. No one in her family has any ovarian cyst and patient denies any history of ovarian cyst. Ultrasound today reveals a 4 cm diameter hemorrhagic cyst on the right. TRAVEL OUTSIDE OF THE [place] IN LAST 30 DAYS: No - Related Data Allergies/Adverse Reactions: amoxicillin Allergy (Verified 04/04/20 17:25) Penicillins Allergy (Verified 04/04/20 17:25) Past Medical History - Past Medical History Cardiac Medical History: Denies: Hx Coronary Artery Disease, Hx Heart Attack, Hx Hypertension Pulmonary Medical History: Denies: Hx Asthma, Hx Bronchitis, Hx COPD, Hx Pneumonia Neurological Medical History: Denies: Hx Cerebrovascular Accident, Hx Seizures Renal/ Medical History: Denies: Hx Peritoneal Dialysis Musculoskeltal Medical History: Denies Hx Arthritis Psychiatric Medical History: Reports: Hx Attention Deficit Hyperactivity Disorder Past Surgical History: Reports: Hx Cholecystectomy - Immunizations Immunizations up to date: Yes Hx Diphtheria, Pertussis, Tetanus Vaccination: Yes Physical Exam - Vital signs Vitals: Temp Pulse Resp BP Pulse Ox 98.0 F 89 20 140/72 H 99 04/04/20 17:21 04/04/20 17:21 04/04/20 17:21 04/04/20 17:21 04/04/20 17:21 Interpretation: Normal - General General appearance: Anxious - HEENT Head: Normocephalic, Atraumatic Eyes: Normal Pupils: PERRL Sinus: Normal Nasal: Normal Mouth/Lips: Normal Pharynx: Normal Neck: Normal - Respiratory Respiratory status: No respiratory distress Chest status: Nontender Breath sounds: Normal Chest palpation: Normal - Cardiovascular Rhythm: Regular Heart sounds: Normal auscultation Murmur: No - Abdominal Inspection: Obese Bowel sounds: Normal Tenderness: Tender - RLQ on p/p Organomegaly: No organomegaly - Rectal Hemorrhoids: Other - deferred - Genitourinary [place] exam: Other - deferred - Back Back: Normal - Extremities General upper extremity: Normal inspection General lower extremity: Normal inspection - Neurological Neuro grossly intact: Yes Cognition: Normal Orientation: AAOx4 [place] Coma Scale Eye Opening: Spontaneous [place] Coma Scale Verbal: Oriented [place] Coma Scale Motor: Obeys Commands [place] Coma Scale Total: 15 Speech: Normal Motor strength normal: LUE, RUE, LLE, RLE Sensory: Normal - Psychological Associated symptoms: Normal affect - Skin Skin Temperature: Warm Skin Moisture: Dry Course - Vital Signs Vital signs: Temp Pulse Resp BP Pulse Ox 98.0 F 89 20 140/72 H 99 04/04/20 17:21 04/04/20 17:21 04/04/20 17:21 04/04/20 17:21 04/04/20 17:21 - Laboratory Result Diagrams: 04/04/20 17:43 04/04/20 17:43 Laboratory results interpreted by me: 04/04/20 17:43 Urine Protein 30 H Ur Leukocyte Esterase TRACE H - Diagnostic Test Radiology reviewed: Reports reviewed - 3.6 hemmorrhagic cyst Doctor's Discharge - Discharge Clinical Impression: Hemorrhagic cyst of right ovary Condition: Good Disposition: HOME, SELF-CARE Additional Instructions: Follow-up with personal doctor and with concrete stone fabricator of choice return to ER as needed take medicines as directed. Try to avoid sexual intercourse for least 2 weeks or until okayed by a concrete stone fabricator. Prescriptions: Indomethacin 25 mg PO BID PRN #15 capsule PRN Reason: Chlorzoxazone [Parafon Forte Dsc 500 Mg Tablet] 500 mg PO BID PRN #20 tablet PRN Reason: Pain Scale Of 1
[2020-04-04] MEDS ORDERED: HYDROMORPHONE HCL INJ/PF 2 MG/ML AMPULE IM ONE (21:51)
[2020-04-04] MEDS ORDERED: KETOROLAC TROMETHAMINE 60 MG/2 ML SDV IM ONE (21:52)
[2020-04-04 22:45] VITALS: BP 115/74
== END 2020-04-04 22:45 | disposition home or self-care (01) ==
LOC: ER 17:12
DX: N83.201 Unspecified ovarian cyst, right side (principal); R10.9 Unspecified abdominal pain; R10.2 Pelvic and perineal pain; Z88.0 Allergy status to penicillin; Z90.49 Acquired absence of other specified parts of digestive tract
CPT/HCPCS: 99285; 96372; 36415; 84703; 85025; 80053; 81001; 87491; 87591; 76856; 93976; J1885; J1170

== ENCOUNTER → 2020-06-30 | Outpatient (CLI) | payer MEDICAID ==
--- NOTE | 2020-06-30 14:59 | RADIOLOGY REPORT (SQ) ---
EXAM DESCRIPTION: CT ABD/PELVIS WITH IV ORAL IMAGES COMPLETED DATE/TIME: 06/30/2020 2:36 pm REASON FOR STUDY: R10.31 EPIGASTRIC PAIN R10.13 EPIGASTRIC PAIN COMPARISON: None. TECHNIQUE: CT scan of the abdomen and pelvis performed using helical scanning technique with dynamic intravenous contrast injection. Patient was given oral contrast. Images reviewed with lung, soft ti ssue, and bone windows. Reconstructed coronal and sagittal MPR images reviewed. Delayed images for ev aluation of the urinary system also acquired. All images stored on PACS. All CT scanners at this facility use dose modulation, iterative reconstruction, and/or weight based d osing when appropriate to reduce radiation dose to as low as reasonably achievable (ALARA). [facility]: Dose Right [facility]: CareDose [facility]: Dose Right [facility]: Teradose 4D [facility]: NuScriptRx CONTRAST TYPE AND DOSE: contrast/concentration: Isovue 350.00 mmol/ml; Total Contrast Delivered: 100 .0 ml; Total Saline Delivered: 45.0 ml RENAL FUNCTION: None required. The patient is less than 50 years old. RADIATION DOSE: CT Rad equipment meets quality standard of care and radiation dose reduction techniq ues were employed. CTDIvol: 15.8 - 16.7 mGy. DLP: 1938 mGy-cm.. LIMITATIONS: None. FINDINGS: LOWER CHEST: No significant findings. No nodules or infiltrates. LIVER: Normal size. No masses. No dilated ducts. SPLEEN: Normal size. No focal lesions. PANCREAS: No masses. No significant calcifications. No adjacent inflammation or peripancreatic fluid collections. Pancreatic duct not dilated. GALLBLADDER: Surgically absent. ADRENAL GLANDS: No significant masses or asymmetry. RIGHT KIDNEY AND URETER: No solid masses. No significant calcifications. No hydronephrosis or hyd roureter. LEFT KIDNEY AND URETER: No solid masses. No significant calcifications. No hydronephrosis or hydr oureter. AORTA AND VESSELS: No aneurysm. No dissection. Renal arteries, SMA, celiac without stenosis. RETROPERITONEUM: No retroperitoneal adenopathy, hemorrhage or masses. BOWEL AND PERITONEAL CAVITY: No masses or inflammatory changes. No free fluid or peritoneal masses. APPENDIX: Not visualized. PELVIS: No mass. No free fluid. Normal bladder. ABDOMINAL WALL: No masses. No hernias. BONES: No significant or acute findings. OTHER: No other significant finding. IMPRESSION: No evidence of acute intra-abdominal/pelvic process. Prior cholecystectomy. TECHNICAL DOCUMENTATION: JOB ID: [id number] Quality ID # [id number]: Final reports with documentation of one or more dose reduction techniques (e.g., Au tomated exposure control, adjustment of the mA and/or kV according to patient size, use of iterative reconstruction technique) 2010 [employer]- All Rights Reserved Reading location - IP/workstation name: [email or web address]
== END ==
LOC: RAD 13:45
PROVIDERS: ATTEND Internal Medicine Gastroenterology
DX: R10.31 Right lower quadrant pain (principal)
CPT/HCPCS: 74177